=== PATIENT | male | born 1980 | race Caucasian/White ===

== ENCOUNTER 2018-03-16 08:20 | Emergency (ER) | payer MEDICAID, SELFPAY ==
[2018-03-16 08:24] VITALS: BP 142/95; PULSE 87; RESP 16; TEMP 37; O2SAT 96
--- NOTE | 2018-03-16 08:55 | ED.GENADUL_ITS ---
Discharge Plan Disposition Patient Disposition: HOME Condition: Stable Discharge Details Chief Complaint: DentalOral Clinical Impression: Dental infection Primary Care Provider: Unknown,Unknown ED Provider: Helga Gorman Home Meds and New Rx's Prescriptions: New penicillin V potassium 500 mg tablet 500 mg PO QID Qty: 27 RF: 0 Discharge Instructions Instructions: Penicillin V (By mouth), Dental Abscess (ED) Additional Instructions: Please return immediately to the emergency department if you develop any new or worsening symptoms or if you become otherwise concerned. It is extremely important that you make an appointment to be seen by your dentist within the next week in follow-up for this visit. Discharge Data Discharge Date/Time-TO BE ENTERED AT DEPARTURE: 03/16/18 09:29 Medical Decision Making Luciano Ibarra is a 38 y/o man without major medical problems but with chronic poor dentition who presented to the emergency department with left lower tooth pain for a few days. On exam Pt is very well and non-toxic appearing. Poor dentition throughout. Apparent early dental infection of left lower premolar, no abscess. Exam/hx not c/w abscess, ludwigs or other deep space infection, sepsis. Plan for PO abx. Lengthy discussion with Pt re: RTED precautions and importance of outpt f/u with dentist and PCP. He is amenable to the plan. HPI General Mode of arrival: ambulatory . Date/Time Provider Initiated Documentation: 03/16/18 08:54 . Limitations to Documentation: no limitations . Information obtained by: patient, RN notes reviewed and old records reviewed . HPI Narrative: Luciano Ibarra is a 38 y/o man without h/o major medical problems presenting to the emergency department with tooth pain. Pt reports that he developed in a left lower incisor several days ago. Pt reports that he has an appointment to be seen by a dentist in [place] in two days. He reports that he has had similar pain in the same area in the past 2/2 broken teeth and poor dentition. No new trauma or other inciting event. He states that he feels otherwise well and in his usual state of health. Denies other pain, fevers, cough, SOB, trouble swallowing, n/v/d. Related Data Home Medications Medication Instructions Recorded Confirmed penicillin V potassium 500 mg PO QID #27 tab 03/16/18 Previous Rx's Medication Instructions Recorded penicillin V potassium 500 mg PO QID #27 tab 03/16/18 Allergies Allergy/AdvReac Type Severity Reaction Status Date / Time No Known Allergies Allergy Unverified 03/16/18 08:28 General Stated Complaint: DentalOral EVGENY: 4 Review of Systems Review of Systems Constitutional: denies fevers Eyes: denies eye pain ENT: denies facial pain, sore throat, reports dental pain Cardiovascular: denies chest pain, edema Respiratory: denies SOB, cough GI: denies abdominal pain, vomiting, diarrhea : denies flank pain MSK: denies back pain, neck pain, arthralgias, myalgias Skin: denies rash Neuro: denies headaches, lightheadedness [facility] Social History Smoking/Tobacco Use Status: Current every day Exam Narrative Exam Narrative: Constitutional: well and [id number], pleasant, conversing normally HENT: head atraumatic, normocephalic normal inspection, mucous membranes moist. Poor dentition throughout. Left lower premolar broken, surrounding gingiva mildly erythematous and TTP, no fluctuance. No other intraoral lesions. Handling secretions without issue. No mandibular or maxillary TTP. No trismus Eyes: conjunctiva normal, sclera normal, pupils 3mm b/l Neck: no stridor, normal ROM, trachea midline. No LAD. Chest: normal inspection Resp: normal work of breathing, LCTAB Cardio: normal rate, normal rhythm, no murmur appreciated Back: normal inspection, no rash Skin: warm, dry, normal color, no generalized rash Neuro: alert, not altered, grossly non-focal, normal tone Psych: normal mood, normal affect, normal behavior Course Vital Signs Temperature 37.0 C 03/16/18 08:24 Pulse 87 03/16/18 08:24 Respiratory Rate 16 03/16/18 08:24 Blood Pressure 142/95 H 03/16/18 08:24 Pulse Oximetry 96 03/16/18 08:24 Temperature 37.0 C 03/16/18 08:24 Temperature Source Skin 03/16/18 08:24 Pulse 87 03/16/18 08:24 Respiratory Rate 16 03/16/18 08:24 Respiratory Effort 03/16/18 08:27 Blood Pressure 142/95 H 03/16/18 08:24 Blood Pressure Position Sitting 03/16/18 08:24 Pulse Oximetry 96 03/16/18 08:24 Oxygen Delivery Method Room Air 03/16/18 08:24 Oxygen Flow Rate 0 03/16/18 08:24 Pain Level 8 03/16/18 08:24
[2018-03-16] MEDS: Penicillin V POTASSIUM 500 MG TAB PO (09:29)
== END 2018-03-16 09:29 | disposition home or self-care (01) ==
PROVIDERS: Emergency Provider Student in an Organized Health Care Education/Training Program
DX: K04.7 Periapical abscess without sinus (principal)
CPT/HCPCS: 99283

== ENCOUNTER 2019-01-05 17:21 | Outpatient (REF) | payer MEDICAID, SELFPAY ==
[2019-01-05 21:09] LABS: Abs Immature Grans 0.03 k/cumm (0.0-0.09); Absolute Basophil Count 0.04 k/cumm (0.0-0.2); Absolute Eosinophil Count 0.18 k/cumm (0.0-0.7); Absolute Lymphocyte Count 2.79 k/cumm (1.2-3.4); Absolute Monocyte Count 0.81 k/cumm (0.11-0.7); Absolute Neutrophil Count 5.36 k/cumm (1.2-6.7); Basophils % 0.4; HCT 43.6 % (40.0-50.0); HGB 14.4 g/dL (13.5-17.5); Immature Grans % 0.3; Lymphocytes % 30.3; Mean Corpuscular Hemoglobin 30.3 pg (27.0-33.0); Mean Corpuscular Volume 91.8 fL (80-95); Monocytes % 8.8; Neutrophils % 58.2; Platelet Count 247 x1000/uL (130-400); RBC 4.75 m/cumm (4.50-6.00); RBC Distribution Width 12.8 % (11.8-14.1); White Blood Cell Count 9.21 k/cumm (4.4-10.8)
[2019-01-05 22:19] LABS: ALT 46 U/L (12-78); AST 39 U/L (15-37); Albumin 3.6 g/dL (3.4-5.0); Alkaline Phosphatase 68 U/L (46-116); Anion Gap 9.7 mmol/L (3-11); BUN 17 mg/dL (7-18); Bilirubin, Total 0.3 mg/dL (0.2-1.0); CO2 29.3 mmol/L (21.0-32.0); CREATININE 0.84 mg/dL (0.70-1.30); Calcium 8.4 mg/dL (8.5-10.1); Calculated LDL 124 mg/dL; Chloride 103 mmol/L (98-107); Cholesterol 172 mg/dL (50-200); Glucose 91 mg/dL (70-100); HDL Cholesterol 35 mg/dL (40-60); Potassium 3.9 mmol/L (3.5-5.1); Sodium 142 mmol/L (136-145); TSH (W/Ref FT4) 0.33 uIU/mL (0.36-3.74); Total Protein 7.4 g/dL (6.4-8.2); Triglyceride 67 mg/dL (30-150)
[2019-01-05 22:41] LABS: FREE T4 1.43 ng/dL (0.76-1.46)
== END 2019-01-05 17:41 ==
LOC: NCHCN 17:21
PROVIDERS: PCP Specialist/Technologist Athletic Trainer; Visit Provider Specialist/Technologist Athletic Trainer
DX: R63.4 Abnormal weight loss (principal); R21 Rash and other nonspecific skin eruption; Z00.00 Encounter for general adult medical examination without abnormal findings
CPT/HCPCS: 80053; 80061; 83721; 84439; 84443; 85025

== ENCOUNTER 2020-04-29 09:20 | Emergency (ER) | payer MEDICAID, SELFPAY ==
--- NOTE | 2020-04-29 09:21 | ED.GENADUL_ITS ---
Discharge Plan Disposition Patient Disposition: HOME Condition: Stable Discharge Details Clinical Impression: Cellulitis of neck Primary Care Provider: Regina Bowman ED Provider: Flory Felipe Home Meds and New Rx's Prescriptions: New clindamycin HCl 150 mg capsule 450 mg PO TID 7 Days Qty: 63 RF: 0 Continued penicillin V potassium 500 mg tablet 500 mg PO QID Qty: 27 RF: 0 Discharge Instructions Instructions: Cellulitis (ED) Additional Instructions: Keep wound clean and dry. Cover wound with bandage if risk of contamination. Otherwise you can keep the wound open to air if resting at home to allow edges to dry and heal. Apply warm compresses to the affected area several times daily for 20 minutes at a time. Take the antibiotics until finished. Alternate tylenol and motrin as needed and directed for pain. Follow-up with your primary care doctor in 1 week. Return to the emergency department with any worsening or new concerning symptoms such as fever, increased pain, redness or swelling. Discharge Data Discharge Date/Time-TO BE ENTERED AT DEPARTURE: 04/29/20 09:59 Discharge Physician: Flory Felipe Medical Decision Making 40-year-old male presents with painful lump to the back of his neck for the past 5 days. Began draining blood recently but denies any fever, headache or dizziness. There is an approximate 5 x 5 cm area of induration with central opening with crust noted in posterior neck. There is no area of fluctuance consistent with abscess. Do not see an indication for I&D or labs or imaging at this time. Normal ENT exam. He appears nontoxic. Advised patient to use warm compresses. Will treat with oral antibiotics at this time. Advised to follow up with the primary care doctor for re-evaluation. Usual and customary return precautions given prior to discharge. HPI General Mode of arrival: ambulatory . Date/Time Provider Initiated Documentation: 04/29/20 09:20 . Limitations to Documentation: no limitations . Information obtained by: patient . HPI Narrative: Patient is a 40-year-old male who presents with a painful lump on the back of his neck for the past 5 days. Patient states at some point it started draining blood but states his symptoms have not improved. He denies any known bites, injury, new soaps, shampoos, detergents or lotions. He denies any headache, dizziness, fever, recent travel, recent surgery, recent tick bite or known sick contacts or exposure to coronavirus. Related Data Home Medications Medication Instructions Recorded Confirmed penicillin V potassium 500 mg PO QID #27 tab 03/16/18 clindamycin HCl 450 mg PO TID 7 Days #63 cap 04/29/20 Previous Rx's Medication Instructions Recorded penicillin V potassium 500 mg PO QID #27 tab 03/16/18 clindamycin HCl 450 mg PO TID 7 Days #63 cap 04/29/20 Allergies Allergy/AdvReac Type Severity Reaction Status Date / Time No Known Allergies Allergy Unverified 04/29/20 09:30 General EVGENY: 4 Review of Systems All systems reviewed & are unremarkable except as noted in HPI and below Constitutional Constitutional: Reports as per HPI, Denies chills and Denies fever(s) Eyes Eyes: Denies blurry vision ENT Ears, Nose, Mouth, and Throat: Denies dizziness, Denies sore throat and Denies throat swelling Cardiovascular Cardiovascular: Denies chest pain and Denies dyspnea Respiratory Respiratory: Denies cough and Denies dyspnea Gastrointestinal Gastrointestinal: Denies abdominal pain, Denies diarrhea and Denies vomiting Genitourinary Genitourinary: Denies hematuria and Denies dysuria Musculoskeletal Musculoskeletal: Denies back pain and Denies numbness Integumentary/Breasts Skin/Breast: Reports lesions and Denies rash Neurologic Neurologic: Denies dizziness, Denies localized weakness and Denies numbness Allergic/Immunologic Allergic/Immunologic: Denies throat swelling [facility] Medical History (Updated 04/29/20 @ 09:49 by Flory Felipe DO) No significant past medical history Surgical History (Updated 04/29/20 @ 09:46 by Flory Felipe DO) History of surgery on extremity Social History Smoking/Tobacco Use Status: Current every day Tobacco Type: cigarettes Smoking risk assessment performed?: Yes Alcohol Intake: never Drug use: Never Do you feel safe at home: Yes Do you feel safe in your relationship?: Yes Exam Const General: cooperative, healthy appearing and no acute distress HENMT Head: normal to inspection Ears: hearing grossly normal bilaterally, external ears normal and TM's normal bilaterally General nose exam: external nose normal Face and sinus: normal facial exam Mouth: oral mucosae normal Throat: posterior oropharynx normal Eyes General: appearance normal, both eyes and all related structures Neck Neck: no lymphadenopathy, trachea midline, supple, no anterior neck swelling, No submandibular swelling and other (some pain with rotation and extension of neck) Neck images: 1. Induration, erythema, and tenderness to palpation. No fluctuance, crepitus. 2. Maroon colored flat crust in center. No active drainage or bleeding. Resp Effort & Inspection: normal respiratory effort and able to speak in complete sentences Cardio Rate: regular rate Neuro General: patient alert, patient awake and patient oriented x3 Motor: muscle tone normal throughout Extrem General: normal to inspection and full ROM Psych Appearance: grossly normal Affect: normal affect
[2020-04-29 09:22] VITALS: BP 113/78; PULSE 87; RESP 15; TEMP 37; O2SAT 97
== END 2020-04-29 09:59 | disposition home or self-care (01) ==
PROVIDERS: Emergency Provider Physician Assistant; PCP Physician Assistant Medical
DX: L03.221 Cellulitis of neck (principal)
CPT/HCPCS: 99283

== ENCOUNTER 2021-04-06 09:03 | Inpatient (IN) | payer MEDICAID, SELFPAY ==
[2021-04-06] VITALS (47 sets, daily range): BP systolic 118–155; BP diastolic 55–128; PULSE 78–103; RESP 16–57; TEMP 36.5–38; O2SAT 94–100
--- NOTE | 2021-04-06 09:15 | DI.RAD_ITS ---
Exam(s) XR FOOT LT COMPLETE EXAM: XR FOOT LT COMPLETE CLINICAL HISTORY: midfoot pain, recent injury, r/o fx. TECHNIQUE: 2D digital imaging was performed. COMPARISON: No exams were available for comparison FINDINGS: There is no evidence of acute fracture or diastasis of the Nemo fantasma joint. There is mild soft tissu e swelling dorsally but no fracture evident. No radiopaque foreign body. No osseous lesions nor ero sions. Mild degenerative changes are noted in the metatarsophalangeal joint of the great toe. IMPRESSION: As above. No acute findings. DATA REPOSITORY: RADIATION DOSE DELIVERED:
--- NOTE | 2021-04-06 09:15 | DI.CT_ITS ---
Exam(s) CT CHEST W EXAM: CT CHEST W CLINICAL HISTORY: IVDU chest wall abscess. May track to lung. TECHNIQUE: Multi planar reconstructions were performed. CONTRAST MATERIAL: Omnipaque 350; 75 cc COMPARISON: No exams were available for comparison FINDINGS: CHEST: LUNGS: There are mild subpleural increased markings in the superior segment of the right lower lobe. No large infiltrate. No pleural effusions. There are no ominous pulmonary nodules. No significant focal findings in the trachea and mainstem bronchi. No bronchiectasis. MEDIASTINUM: No obvious adenopathy. Visualized thyroid unremarkable. CARDIAC: Heart size is normal. There is no pericardial effusion.Caliber of the thoracic aorta is wit hin normal limits. VISUALIZED UPPER ABDOMEN:There are no significant adrenal masses. OSSEOUS: No significant osseous lesions. OTHER: There is skin thickening and subcutaneous streaking over the anterior left chest wall extendin g from the skin down to the medial half of the left pectoralis major muscle. There is no obvious dis tinct formed abscess, however, there is subtle density difference in the most medial aspect of the le ft pectoralis muscle which may reflect muscular involvement. Findings appear to be confined to the s ubcutaneous tissues and muscular layer. There does not appear to be involvement of the subjacent reema rnum and ribs. No intrathoracic abnormality seen at this level. IMPRESSION: 1. There is an inflammatory process within the medial aspect of the anterior chest wall superficial t o and possibly also involving the medial aspect of the left pectoralis muscle. There is no involveme nt of the intrathoracic cavity. If clinically indicated follow-up MRI can be performed to determine the extent of involvement of the pectoralis muscle. 2. Mild subpleural increased markings are incidentally noted in the superior segment of the right low er lobe. No other pulmonary findings and no pleural effusions. RADIATION DOSE DELIVERED: 735.71mGy.cm Total DLP DATA REPOSITORY: All CT scans at this facility are submitted to the National Radiology Data Registry (NRDR) Dose Index Registry (DIR) with the [employer] (A[employer]). RADIATION OPTIMIZATION: All CT scans at this facility use at least one of these dose optimization te chniques: automated exposure control; mA and/or kV adjustment per patient size (includes targeted exa ms where dose is matched to clinical indication); or iterative reconstruction.
--- NOTE | 2021-04-06 09:15 | RT.EKG_ITS ---
APPROVED REPORT Exam: Resting ECG Reason for Exam: chest pain Patient Location: E HR:85 bpm ECG Measurements Heart Rate 85 AXIS MD 170 P 49 QRSd 89 QRS 64 QT 363 T 18 QTc 434 Conclusion Sinus rhythm...normal P axis, V-rate 60- 99 Physician: no stemi. Q wave in III, no prior for comparison
--- NOTE | 2021-04-06 09:23 | ED.GENADUL_ITS ---
Discharge Plan Disposition Patient Disposition: [facility] INPATIENT Condition: Stable Discharge Details Chief Complaint: Cellulitis Clinical Impression: Abscess or cellulitis of chest wall, IVDU (intravenous drug user) Primary Care Provider: Regina Bowman ED Provider: Romel Aparicio Home Meds and New Rx's Prescriptions: No Action No Known Home Meds RF: 0 Medical Decision Making This is a 41-year-old male with a past medical history of IV drug use with heroin/fentanyl, no other significant past medical history who presents today for evaluation of left nodule on chest wall, and left foot pain. Patient states that 1 week ago his dog was hit by a car, carried the dog out to the field, and buried it. Shortly after that his left foot began hurting in the midfoot region. Worse with movement and weightbearing. Improved by rest and hard soled shoes. Pain has been consistent, and neither worsening nor improving. However over the last 3 days the patient has noted small amount of pain in the left chest by the sternum, which is worsened with time. Today it was notably unbearable and had developed redness and severe tenderness. He admits to pain with movement palpation and any breathing, focally to that area. He admits to chills but denies any fever. He admits to fatigue. He denies any hemoptysis but does admit to an otherwise nonproductive cough. Immunizations are up-to-date. The patient has not had his Covid vaccine. He denies any history of HIV. No other complaints at this time. No other modifying factors. He denies any injections into his feet, he normally just shoots up into his arms. Primarily his right arm. Physical exam demonstrates small red swollen area on the left chest around ribs 4/5 at the costochondral junction. Bedside ultrasound shows evidence of a small fluid collection beneath the surface, it seems to extend down past the pectoralis muscle and past the ribs. I am unable to visualize the past there. Concern is for abscess potentially to the lungs. He does admit to a cough. With the patient's history of IV drug use is certainly increases my concern for infectious etiology. Additionally the foot shows no signs of redness infection gout or cellulitis. Concern for mild musculoskeletal injury. We will get an x- ray to rule out fracture. Will get blood cultures, check HIV status, rehydrate, manage patient's pain, get a CT scan of the chest to evaluate for tracking of the abscess, monitor closely and reassess. We will start clindamycin. 1:01 PM Laboratory work-up has returned, patient white count is 23.4, notable left shift. Lactate is normal though. Electrolytes are normal aside for potassium which is slightly low at 3.1, magnesium is normal. Troponin negative. EKG benign. Covid test negative, flu test negative. X-ray of the foot shows no acute process. He has no tenderness in the calf. No clinical evidence of significant DVT. No ultrasound is available currently, and he may benefit from getting this tomorrow when ultrasound has returned. There is concern for potential septic emboli. CT scan of the chest shows no evidence of fluid collection or abscess, however I did go reevaluate again with the ultrasound and then still able to see a fluid tract.Do suspect need for admission for continued IV antibiotics. Patient has had notable pain while here, and has gone through 4 mg of morphine, 4 mg of Dilaudid, and Toradol and Ofirmev. Did consult surgery and had Dr. Noyola evaluate the patient for concern for abscess, and she is he was able to visualize the fluid and the tract in the chest. She is going to attempt an I&D of the area for collection. With the return of the patient's labs, his notable white count, I do feel that he would benefit from continued IV antibiotics. We will add hepatitis and procalcitonin. Discussed the case with the hospitalist Dr. Polanco, he agrees with the assessment and plan. I will place holding orders on his behalf. I have extensively reviewed the treatment plan with the patient. I have addressed all patient concerns at this time. I have also discussed the plan with the admitting physician and they agree with the current assessment and plan and have agreed to assume responsibility for the patient. All parties demonstrate verbal understanding and agreement with our assessment and plan at this time. The documentation in this chart was dictated using [employer] dictation software. Please excuse any dictation errors. FINDINGS: Bones/joints: Normal. No fracture or dislocation. No arthropathic change. Soft tissues: Normal. IMPRESSION: No acute findings. Thank you for allowing us to participate in the care of your patient. Dictated and Authenticated by: Samson Oden MD 04/06/2021 11:09 AM Eastern Time ([place] & [place]) FINDINGS: Thyroid: Normal. No significant nodule or enlargement. Trachea: Normal. Lungs: Unremarkable. No consolidation. No nodule or mass. Pleural spaces: Unremarkable. No pneumothorax. No pleural effusion or thickening. Heart: No cardiomegaly. No pericardial effusion. Coronary arteries: No significant calcification. Esophagus: No esophageal mass or wall thickening. No hiatal hernia. Mediastinal space: Normal. No mass or adenopathy. Pulmonary arteries: Nonenlarged. No filling defects demonstrated. Aorta: Unremarkable. No aortic aneurysm or significant atherosclerosis. Lymph nodes: No enlarged mediastinal or axillary lymph nodes. Bones/joints: See Soft tissues finding. Soft tissues: There is a stated history of chest wall abscess. There is some soft tissue stranding within the subcutaneous fat superficial to the left pectoralis muscle medially and there is some associated skin thickening. No fluid collection is seen to indicate an abscess however. There is some subtle thickening of the medial pectoralis muscle which could reflect myositis. The process is confined to the chest wall superficial to the ribs with no involvement of the intrathoracic space. Other findings: Visualized upper abdomen is unremarkable. IMPRESSION: Inflammatory process within the medial anterior chest wall superficial to and possibly involving the left pectoralis muscle. No intrathoracic abnormality. Thank you for allowing us to participate in the care of your patient. Dictated and Authenticated by: Samson Oden MD 04/06/2021 11:08 AM [facility] ( [facility] [employer]) HPI General Date/Time Provider Initiated Documentation: 04/06/21 09:03 . HPI Narrative: This is a 41-year-old male with a past medical history of IV drug use with heroin/fentanyl, no other significant past medical history who presents today for evaluation of left nodule on chest wall, and left foot pain. Patient states that 1 week ago his dog was hit by a car, carried the dog out to the field, and buried it. Shortly after that his left foot began hurting in the midfoot region. Worse with movement and weightbearing. Improved by rest and hard soled shoes. Pain has been consistent, and neither worsening nor improving. However over the last 3 days the patient has noted small amount of pain in the left chest by the sternum, which is worsened with time. Today it was notably unbearable and had developed redness and severe tenderness. He admits to pain with movement palpation and any breathing, focally to that area. He admits to chills but denies any fever. He admits to fatigue. He denies any hemoptysis but does admit to an otherwise nonproductive cough. Immunizations are up-to-date. The patient has not had his Covid vaccine. He denies any history of HIV. No other complaints at this time. No other modifying factors. He denies any injections into his feet, he normally just shoots up into his arms. Primarily his right arm. Related Data Home Medications Medication Instructions Recorded Confirmed Unknown [No Known Home Meds] 04/06/21 04/06/21 Allergies Allergy/AdvReac Type Severity Reaction Status Date / Time No Known Allergies Allergy Unverified 04/06/21 09:37 General EVGENY: 3 Review of Systems All systems reviewed & are unremarkable except as noted in HPI and below PFSH Medical History No significant past medical history Surgical History History of surgery on extremity Social History Smoking/Tobacco Use Status: Current every day Tobacco Type: cigarettes Smoking risk assessment performed?: Yes Alcohol Intake: never Drug use: Daily Substance use type: heroin Do you feel safe at home: Yes Do you feel safe in your relationship?: Yes Exam Narrative Exam Narrative: 1.Const: Well-nourished, Well-developed, appearing stated age 2.Eyes: PERRL, no conjunctival injection, and symmetrical lids. 3.ENT: Atraumatic external nose and ears. Moist MM. Neck: Symmetric, trachea midline, No thyromegaly. 4.CVS: +S1/S2, No murmurs or gallops. Peripheral pulses 2+ and equal in all extremities. Brisk capillary refill in all extremities. Palpation of the left anterior chest wall demonstrates a small area of redness at the costochondral junction around ribs four and five. Exquisitely tender. There is also mild swelling in that area. Bedside ultrasound shows evidence of a small fluid pocket noted deeper, roughly 1 to 2 cm down, it seems to track past the ribs and towards the lung. I am unable to visualize it after that. No crepitus. 5.RESP: Unlabored respiratory effort. Clear to auscultation bilaterally. No wheezes rales or rhonchi 6.GI: Soft, Nontender/Nondistended, No hepatosplenomegaly. No guarding or rebound. 7.MSK: Normocephalic/Atraumatic, Extremities w/o deformity. No cyanosis or clubbing, Normal movement of all extremities. Patient demonstrates good plantar dorsiflexion of the left foot, minimal tenderness at the midfoot region at the plantar aspect of the foot. No tenderness over the dorsal arch, no tenderness with movement of the toes or feet or heel otherwise. Pain is only present with weightbearing or pinpoint pressure on the arch of the foot. No redness, no crepitus, no signs of injection site from the foot. 8.Skin: Warm, Dry. Please see [facility]. 9.Neuro: histopathologist II-XII grossly intact. Sensation grossly intact, no focal neurologic deficits. 10.Psych: (AAO) x3. Appropriate mood and affect Course Lab/Test Results Lab/Test Results: 04/06/21 09:17 Blood Blood Culture - Pending 04/06/21 09:17 Blood Blood Culture - Pending
[2021-04-06] MEDS: Normal Saline 1,000 ML 1000 ML IV ×2 (09:30→10:50)
[2021-04-06 09:41] LABS: Lactate 1.3 mmol/L (0.6-1.4)
[2021-04-06 09:42] LABS: Abs Immature Grans 0.15 10^3/uL (0.0-0.06); Absolute Basophil Count 0.05 10^3/uL (0.0-0.2); Absolute Lymphocyte Count 2.37 10^3/uL (1.2-3.4); Absolute Monocyte Count 1.38 10^3/uL (0.1-0.8); Basophils % 0.2; Eosinophils % 0.2; HCT 40.4 % (40.0-50.0); HGB 13.3 g/dL (13.5-17.5); Immature Grans % 0.6; Lymphocytes % 10.1; MCH 29.2 pg (27.0-33.0); MCHC 32.9 % (32.0-36.0); MCV 88.8 fL (80-95); MPV 9.4 fL (8.0-11.0); Monocytes % 5.9; Nucleated RBC 0 %; Platelet Count 291 10^3/uL (130-400); RBC 4.55 10^6/uL (4.36-5.78); RDW 12.1 % (11.8-14.1); RDW-SD 39.4 fL; WBC 23.44 10^3/uL (4.4-10.8)
[2021-04-06 09:44] LABS: Absolute Eosinophil Count 0.05 10^3/uL (0.0-0.7); Absolute Neutrophil Count 19.46 10^3/uL (1.2-6.7)
[2021-04-06] MEDS: CLINDAMYCIN 600 MG/50 ML BAG 100 MG IVPB (09:46)
[2021-04-06] MEDS: Ketorolac 15 MG/ML VIAL IVP (09:48)
[2021-04-06] MEDS: HYDROmorphone 2 MG/ML VIAL 1 MG IVP ×4 (09:54→13:10)
[2021-04-06 10:02] LABS: ALT 25 U/L (16-63); AST 13 U/L (15-37); Albumin 3.3 g/dL (3.4-5.0); Alkaline Phosphatase 62 U/L (46-116); Anion Gap 14.2 mmol/L (3-11); BUN 9 mg/dL (7-18); Bilirubin, Total 0.6 mg/dL (0.2-1.0); CO2 23.8 mmol/L (21.0-32.0); CREATININE 0.9 mg/dL (0.70-1.30); Calcium 9.2 mg/dL (8.5-10.1); Chloride 101 mmol/L (98-107); Glucose 133 mg/dL (74-106); Potassium 3.1 mmol/L (3.5-5.1); Sodium 139 mmol/L (136-145); Total Protein 8.7 g/dL (6.4-8.2)
[2021-04-06 10:07] LABS: Troponin I < 0.05 ng/mL (<0.06)
[2021-04-06] MEDS: Omnipaque 350 MG/ML 100 ML BTL IV (10:25)
[2021-04-06] MEDS: Normal Saline - Diluent 50 ML VIAL IV (10:27)
[2021-04-06 10:29] LABS: Source Nasal/Nares
[2021-04-06] MEDS: Potassium Chloride 20 MEQ TABCR 40 MEQ PO (10:31)
[2021-04-06] MEDS: POTASSIUM CHLORIDE 20 MEQ/100 ML BAG 50 MEQ IVPB (10:48)
--- NOTE | 2021-04-06 11:09 | DI.VRAD_ITS ---
PROCEDURE INFORMATION: Exam: CT Chest With Contrast; Diagnostic Exam date and time: 04/06/2021 9:19 AM Age: 41 years old Clinical indication: Other: Ivdu chest wall abscess. May track to lung TECHNIQUE: Imaging protocol: Diagnostic computed tomography of the chest with contrast. 3D rendering (Not supervised by radiologist): MIP and/or 3D reconstructed images were created by the technologist. Radiation optimization: All CT scans at this facility use at least one of these dose optimization techniques: automated exposure control; mA and/or kV adjustment per patient size (includes targeted exams where dose is matched to clinical indication); or iterative reconstruction. Contrast material: OMNIPAQUE 350; Contrast volume: 70 ml; Contrast route: INTRAVENOUS (IV); COMPARISON: CT RENAL COLIC WO CONTRAST 08/12/2015 02:20 FINDINGS: Thyroid: Normal. No significant nodule or enlargement. Trachea: Normal. Lungs: Unremarkable. No consolidation. No nodule or mass. Pleural spaces: Unremarkable. No pneumothorax. No pleural effusion or thickening. Heart: No cardiomegaly. No pericardial effusion. Coronary arteries: No significant calcification. Esophagus: No esophageal mass or wall thickening. No hiatal hernia. Mediastinal space: Normal. No mass or adenopathy. Pulmonary arteries: Nonenlarged. No filling defects demonstrated. Aorta: Unremarkable. No aortic aneurysm or significant atherosclerosis. Lymph nodes: No enlarged mediastinal or axillary lymph nodes. Bones/joints: See Soft tissues finding. Soft tissues: There is a stated history of chest wall abscess. There is some soft tissue stranding within the subcutaneous fat superficial to the left pectoralis muscle medially and there is some associated skin thickening. No fluid collection is seen to indicate an abscess however. There is some subtle thickening of the medial pectoralis muscle which could reflect myositis. The process is confined to the chest wall superficial to the ribs with no involvement of the intrathoracic space. Other findings: Visualized upper abdomen is unremarkable. IMPRESSION: Inflammatory process within the medial anterior chest wall superficial to and possibly involving the left pectoralis muscle. No intrathoracic abnormality. Dictated and Authenticated by: Samson Oden MD. Ordering:TALIA Urena MD
--- NOTE | 2021-04-06 11:10 | DI.VRAD_ITS ---
PROCEDURE INFORMATION: Exam: XR Left Foot Exam date and time: 04/06/2021 9:23 AM Age: 41 years old Clinical indication: Other: Midfoot pain, recent injury, R/O FX TECHNIQUE: Imaging protocol: XR Left foot. Views: 3 or more views. COMPARISON: No relevant prior studies available. FINDINGS: Bones/joints: Normal. No fracture or dislocation. No arthropathic change. Soft tissues: Normal. IMPRESSION: No acute findings. Dictated and Authenticated by: Samson Oden MD. Ordering:TALIA Urena MD
[2021-04-06 11:24] LABS: COVID-19 PCR Negative (Negative)
[2021-04-06] MEDS: ACETAMINOPHEN 1,000 MG/100 ML BTL 400 MG IVPB (12:41)
[2021-04-06] MEDS: LORazepam 2 MG/ML VIAL (13:18)
[2021-04-06] MEDS: PIPERACILLIN/TAZO 3.375 GM in Normal Saline 50 ML IVPB (13:35)
--- NOTE | 2021-04-06 13:39 | SCONE_ITS ---
Date of service: 04/06/21 Time of Service: 13:40 Assessment and Plan Assessment and plan (1) Heroin abuse: Status: Acute (2) Abscess or cellulitis of chest wall: Status: Acute Assessment and plan: -fluid sent for culture -vanc/zosyn -echo -HIV/HepC pd. supportive care r/o septic emboli or endocarditis. No other lg fluid collections noted on US 90 mins spent w pt in ED (3) IVDU (intravenous drug user): Status: Acute History of Present Illness Narrative: IVKONRAD. says he only uses right forearm for injecting. last time he injected was two days ago. He told the ED Dr he injected this am. + N/V. Hasn't ate in 2 days b/c he hasn't felt well. The pain started after he did some digging on . Pt denies injecting into the chest wall or his leg. He has pain over carotid/L foot and left chest wall. There are no signs of injection [place] on any veins. He has mult scabs on right arm. US: small 1cm abscess w/ tracking. needle asp- .25cc fluid sent for culture. no other discrete collections. otherwise tissue edema. also plantar/dorsum left foot. very poor dentition. occ smokes rack. no meth. nkda no meds doesn't drink ETOH doesn't smoke US 2x1cm irregular abscess cavity that appears to track down to the pectorial fascia. Consults Consult date: 04/06/21 [facility] Medical History (Updated 04/06/21 @ 17:24 by Lei Benitez) Heroin abuse No significant past medical history Surgical History (Updated 04/06/21 @ 17:24 by Lei Benitez) History of surgery on extremity right leg surgery; age 10 yr old Family History (Updated 04/06/21 @ 17:26 by Lei Benitez) Sister [place] chorea Mother [place] chorea Social History (Updated 04/06/21 @ 17:26 by Lei Benitez) Smoking/Tobacco Use Status: Current every day Tobacco Type: cigarettes Smoking packs per day: 1 Smoking cigarettes per day: 20.0 Smoking risk assessment performed?: Yes Alcohol Intake: never Drug use: Daily Substance use type: heroin Do you feel safe at home: Yes Do you feel safe in your relationship?: Yes Exam Const General: cooperative, healthy appearing, comfortable, no acute distress, well developed and well groomed Nutritional Appearance: average body habitus and well nourished Orientation: alert, awake and oriented x3 [facility] Head: normal to inspection, normocephalic and atraumatic Ears: hearing grossly normal bilaterally and external ears normal General nose exam: external nose normal Face and sinus: normal facial exam and sinuses nontender Mouth: oral mucosae normal, lip normal, tongue normal and moist mucous membranes Teeth and gingiva: abnormal tooth or associated gingiva and poor dentition Other: No mouth pain Eyes General: appearance normal, both eyes and all related structures Conjunctivae: conjunctivae normal Sclera: sclerae normal Pupils: PERRL Neck Neck: normal visual inspection and full ROM Chest Chest: abnormal inspection of the chest Other: He has a 1 x 1 cm area of redness on the left anterior chest wall. There are some mild swelling and edema. There is no crepitus. Bedside ultrasound was performed that did show irregular shaped fluid collection. Fluid was aspirated from this and sent for culture. It does show tracking. A CT of the chest was obtained and reviewed. There does not appear to be any thoracic fluid collections the patient has exquisite pain. But I think subjective exam is not reliable in this patient. Resp Effort & Inspection: normal respiratory effort, able to speak in complete sentences, no cough, no nasal flaring, not tachypneic and no use of accessory muscles Auscultation: clear to auscultation bilaterally, no rales, no rhonchi and no wh eezes Cardio Jugular venous pressure: no JVD Rate: regular rate Rhythm: regular rhythm GI Inspection: normal to inspection, no edema and non-distended Palpation: soft, no masses, nontender and No ascites Auscultation: normal bowel sounds Skin General skin exam: no rashes or lesions noted Trauma: no lacerations or abrasions Neuro General: patient alert, patient oriented x3, oriented, gait normal, moves all extremities, no focal motor deficits and CN's II-XI intact bilaterally Cognition: normal cognition Speech: speech normal Gait: normal gait Motor: muscle tone normal throughout Extrem General: normal to inspection, full ROM and no clubbing, cyanosis or edema Other: pulses are all intact 2/2 upper/lower. there are no signs of redness/hardness over the veins/arteries. No signs of any thrombophlebitis. Psych Appearance: grossly normal and well kempt Mental Status: mental status grossly normal Speech and Movement: speech and movement normal Affect: normal affect Results Last Vital Signs Temp 37.2 C 04/06/21 11:58 Pulse 83 04/06/21 11:58 Resp 21 04/06/21 11:58 BP 155/113 H 04/06/21 11:58 Pulse Ox 100 04/06/21 11:58 Labs Result diagrams: 04/06/21 09:30 04/06/21 09:30 Labs: Laboratory Results - last 24 hr 04/06/21 04/06/21 04/06/21 09:30 09:30 09:30 WBC 23.44 H RBC 4.55 Hgb 13.3 L Hct 40.4 MCV 88.8 MCH 29.2 MCHC 32.9 RDW 12.1 Plt Count 291 MPV 9.4 Immature Gran % 0.6 Neutrophils % 83.0 Lymphocytes % 10.1 Monocytes % 5.9 Eosinophils % 0.2 Basophils % 0.2 Nucleated RBC % 0 Absolute Neutrophils 19.46 H Absolute Lymphocytes 2.37 Absolute Monocytes 1.38 H Absolute Eosinophils 0.05 Absolute Basophils 0.05 VBG Lactate 1.3 Sodium 139 Potassium 3.1 L Chloride 101 Carbon Dioxide 23.8 Anion Gap 14.2 H BUN 9 Creatinine 0.9 Estimated GFR/1.73 m2 >= 60.00 Glucose 133 H Calcium 9.2 Magnesium Total Bilirubin 0.6 AST 13 L ALT 25 Alkaline Phosphatase 62 Troponin I Total Protein 8.7 H Albumin 3.3 L COVID-19 Source SARS-CoV-2 (PCR) 04/06/21 04/06/21 04/06/21 09:30 09:30 10:15 WBC RBC Hgb Hct MCV MCH MCHC RDW Plt Count MPV Immature Gran % Neutrophils % Lymphocytes % Monocytes % Eosinophils % Basophils % Nucleated RBC % Absolute Neutrophils Absolute Lymphocytes Absolute Monocytes Absolute Eosinophils Absolute Basophils VBG Lactate Sodium Potassium Chloride Carbon Dioxide Anion Gap BUN Creatinine Estimated GFR/1.73 m2 Glucose Calcium Magnesium 2.0 Total Bilirubin AST ALT Alkaline Phosphatase Troponin I < 0.05 Total Protein Albumin COVID-19 Source Nasal/Nares SARS-CoV-2 (PCR) Negative
[2021-04-06 13:41] LABS: Creatine Kinase 74 U/L (39-308)
--- NOTE | 2021-04-06 13:52 | NUR.NOTE ---
Nursing Note: Beena [phone]
[2021-04-06] MEDS: Normal Saline 1,000 ML 125 ML IV (13:58)
[2021-04-06 14:05] LABS: Procalcitonin 0.1 ng/mL
[2021-04-06] MEDS: VANCOMYCIN/WATER (PEG) 2 GM/400 ML BAG IV (14:14)
--- NOTE | 2021-04-06 14:36 | ROE_ITS ---
Date of service: 04/06/21 Time of Service: 14:36 Operative Note Operative Note DATE OF PROCEDURE: 04/06/21 PRE-OP DIAGNOSIS: Ultrasound-guided aspiration of left chest wall abscess PROCEDURE: See above SURGEON: Radha Noyola ANESTHESIA TYPE: Local By Surgeon Refer to Anesthesia Record ESTIMATED BLOOD LOSS: 1 PATHOLOGY: other COMPLICATIONS: None Patient was transported to: no change Patient's condition: stable Procedure Description: Patient presented to the ED complaining of chills and pain in the left anterior chest wall. He has a history of IV drug abuse. He ve hemently states he did not inject into his chest wall. There is a lot of edema within the tissues and definitely has the appearance of cellulitis on ultrasound and on CT. On ultrasound there is probably a 1 x 1 cm fluid pocket it does appear to have a tracking sinus. But his chest cavity is clear on CT scan. To have a better way of directing antibiotic therapy, aspiration of the small abscess was done. Informed consent was obtained explaining risks and benefits of procedure including not limited to pain scarring reaction to the medications pneumothorax and others. Timeout was performed. Left chest is prepped and draped in usual sterile fashion using a ChloraPrep scrub solution. Ultrasound was utilized to locate the pocket. It is anesthetized with 5 cc of 1% lidocaine plain approximately 0.25 cc of purulent fluid is obtained this is sent for culture. Pressure is held. There is no bleeding noted. Compression dressing is applied. Patient tolerated the procedure well.
[2021-04-06] MEDS: Normal Saline Flush 10 ML SYR IVP ×2 (15:46→21:07)
[2021-04-06] MEDS: Enoxaparin 40 MG/0.4 ML SYR SC (15:46)
[2021-04-06] MEDS: Ketorolac 30 MG/ML VIAL IVP ×2 (15:47→22:01)
--- NOTE | 2021-04-06 16:20 | HPE_ITS ---
Date of service: 04/06/21 Time of Service: 16:20 Assessment and Plan Assessment and plan (1) Abscess or cellulitis of chest wall: Status: Acute Assessment and plan: s/p I&D performed in the ER by Dr. Noyola. await wound and blood cultures. continue broad spectrum antibiotics (Vancomycin and Zosyn) pending results of cultures; check echocardiogram in the morning to rule out endocarditis. (2) Heroin abuse: Status: Acute Assessment and plan: patient in significant pain out of proportion to the chest wall abscess. He has required a significant amount of dilaudid while in the ER. I have put him on toradol for his pain but also have incuded oral dilaudid. I am not going to treat w/ parenteral narcotics. Oral narcotic analgesic will last longer to control his pain. The toradol will help w/ infllammation. (3) IVDU (intravenous drug user): Status: Acute History of Present Illness History of Present Illness Chief Complaint: chest wall pain Narrative: 41 yr old heroin addict who regularly injects heroin in his right antecubital vein, developed redness, swelling and pain over his left anterior chest along the parasternal chest wall. Onset 3 days ago. Now associated w/ chills but no rigors. No cough or sputum production. He has had nausea w/out vomiting or abdominal pains. He has had poor oral intake over past couple days. He has multiple scabs over his arms and his legs. He admits to picking at his skin. He denies any injection of drugs into his left arm or his legs or feet. However he also complains of left foot pain in the mid sole. He denies shooting up in his feet or legs. On arrival to the ER his vital signs he was afebrile but later developed low grade fever of 38.0 at 14:19. BP and pulse and RR and oxygen saturation were all normal. Labs were significant for WBC of 23,000 w/ left shift, lactate normal at 1.3, procalcitonin 0.1, anion gap 14, potassium 3.1. Radiologic studies included CT of the chest and xray of his left foot. CT scan demonstrated the following: IMPRESSION: 1. There is an inflammatory process within the medial aspect of the anterior chest wall superficial to and possibly also involving the medial aspect of the left pectoralis muscle. There is no involvement of the intrathoracic cavity. If clinically indicated follow-up MRI can be performed to determine the extent of involvement of the pectoralis muscle. 2. Mild subpleural increased markings are incidentally noted in the superior segment of the right lower lobe. No other pulmonary findings and no pleural eff usions. Xray of his left foot demonstrated the following: FINDINGS: There is no evidence of acute fracture or diastasis of the Nemo fantasma joint. There is mild soft tissue swelling dorsally but no fracture evident. No radiopaque foreign body. No osseous lesions nor erosions. Mild degenerative c hanges are noted in the metatarsophalangeal joint of the great toe. IMPRESSION: As above. No acute findings. Patient was treated in the ER w/ blood cultures, and was begun on saline bolus x 1 liter and was given clindamycin and after consultation w/ hospitalist service was given Vancomycin and Zosyn. He required frequent iv dilaudid and morphine for his pain. Dr. Noyola from surgical service was consulted and she needle aspirated 0.25 mL pus from a 1 cm abscess of his left upper anterior medial chest wall. Wound culture was sent off. The patient is admitted for parenteral antibiotics for anterior chest wall abscess and to rule out bacteremia and endocarditis. Review of Systems All systems reviewed & are unremarkable except as noted in HPI and below PFSH Medical History (Updated 04/06/21 @ 17:24 by Lei Benitez) Heroin abuse No significant past medical history Surgical History (Updated 04/06/21 @ 17:24 by Lei Benitez) History of surgery on extremity right leg surgery; age 10 yr old Family History (Updated 04/06/21 @ 17:26 by Lei Benitez) Sister [place] chorea Mother Douglas chorea Social History (Updated 04/06/21 @ 17:26 by Lei Benitez) Smoking/Tobacco Use Status: Current every day Tobacco Type: cigarettes Smoking packs per day: 1 Smoking cigarettes per day: 20.0 Smoking risk assessment performed?: Yes Alcohol Intake: never Drug use: Daily Substance use type: heroin Do you feel safe at home: Yes Do you feel safe in your relationship?: Yes Meds Allergies and Home Medications Allergies Allergy/AdvReac Type Severity Reaction Status Date / Time No Known Allergies Allergy Unverified 04/06/21 09:37 Home Medications Medication Instructions Recorded Confirmed Type Unknown [No Known Home Meds] 04/06/21 04/06/21 History Exam Narrative Exam Narrative: Young white male lying in bed in no acute distress. In fact I had to awaken him to inteview him and examine him. He is alert and oriented x 3 HEENT: poor oral dentition w/ many broken teeth and gingivitis; no purulent discharge Neck: supple, nontender, no adenopathy; no crepitus Lungs: clear Heart: RRR, soft ejection murmur over LLSB, no thrill or gallop Chest wall w/ bandage over 1 cm indurated, reddened pustule that has been drained Abdomen: soft, nontender, no organomegaly Extremities: multiple scabs over his arms and legs; right antecubital vein is thrombosed no edema and no cyanosis; I did not see any focal [place] lesions and no [place] nodes Results Labs Result diagrams: 04/06/21 09:30 04/06/21 09:30 Labs: Laboratory Results - last 24 hr 04/06/21 04/06/21 04/06/21 09:30 09:30 09:30 WBC 23.44 H RBC 4.55 Hgb 13.3 L Hct 40.4 MCV 88.8 MCH 29.2 MCHC 32.9 RDW 12.1 Plt Count 291 MPV 9.4 Immature Gran % 0.6 Neutrophils % 83.0 Lymphocytes % 10.1 Monocytes % 5.9 Eosinophils % 0.2 Basophils % 0.2 Nucleated RBC % 0 Absolute Neutrophils 19.46 H Absolute Lymphocytes 2.37 Absolute Monocytes 1.38 H Absolute Eosinophils 0.05 Absolute Basophils 0.05 VBG Lactate 1.3 Sodium 139 Potassium 3.1 L Chloride 101 Carbon Dioxide 23.8 Anion Gap 14.2 H BUN 9 Creatinine 0.9 Estimated GFR/1.73 m2 >= 60.00 Glucose 133 H Calcium 9.2 Magnesium Total Bilirubin 0.6 AST 13 L ALT 25 Alkaline Phosphatase 62 Creatine Kinase Troponin I Total Protein 8.7 H Albumin 3.3 L Procalcitonin COVID-19 Source SARS-CoV-2 (PCR) 04/06/21 04/06/21 04/06/21 09:30 09:30 09:30 WBC RBC Hgb Hct MCV MCH MCHC RDW Plt Count MPV Immature Gran % Neutrophils % Lymphocytes % Monocytes % Eosinophils % Basophils % Nucleated RBC % Absolute Neutrophils Absolute Lymphocytes Absolute Monocytes Absolute Eosinophils Absolute Basophils VBG Lactate Sodium Potassium Chloride Carbon Dioxide Anion Gap BUN Creatinine Estimated GFR/1.73 m2 Glucose Calcium Magnesium 2.0 Total Bilirubin AST ALT Alkaline Phosphatase Creatine Kinase Troponin I < 0.05 Total Protein Albumin Procalcitonin 0.1 COVID-19 Source SARS-CoV-2 (PCR) 04/06/21 04/06/21 09:30 10:15 WBC RBC Hgb Hct MCV MCH MCHC RDW Plt Count MPV Immature Gran % Neutrophils % Lymphocytes % Monocytes % Eosinophils % Basophils % Nucleated RBC % Absolute Neutrophils Absolute Lymphocytes Absolute Monocytes Absolute Eosinophils Absolute Basophils VBG Lactate Sodium Potassium Chloride Carbon Dioxide Anion Gap BUN Creatinine Estimated GFR/1.73 m2 Glucose Calcium Magnesium Total Bilirubin AST ALT Alkaline Phosphatase Creatine Kinase 74 Troponin I Total Protein Albumin Procalcitonin COVID-19 Source Nasal/Nares SARS-CoV-2 (PCR) Negative Last Vital Signs Temp 38.0 C H 04/06/21 14:19 Pulse 94 H 04/06/21 14:19 Resp 24 04/06/21 14:19 BP 142/85 H 04/06/21 14:19 Pulse Ox 98 04/06/21 14:19
[2021-04-06] MEDS: HYDROmorphone 2 MG TAB PO ×2 (17:32→21:06)
[2021-04-06] MEDS: Potassium Chloride 20 MEQ TABCR PO (19:24)
[2021-04-06] MEDS: Acetaminophen 325 MG TAB PO (19:24)
[2021-04-06] MEDS: VANCOMYCIN/WATER (PEG) 1.5 GM/300 ML BAG IV (21:07)
--- NOTE | 2021-04-07 | DI.MRI_ITS ---
Exam(s) MR CERVICAL SPINE WO EXAM: MR CERVICAL SPINE WO CLINICAL HISTORY: fever, neck pain, bacteremia. TECHNIQUE: Multiplanar multisequence MRI was performed. COMPARISON: No exams were available for comparison FINDINGS: MR examination of the cervical spine was performed according to the usual protocol. There is no cervical mass or adenopathy. Prevertebral soft tissues show normal signal. No focal bony signal abnormality seen. Spinal cord appears normal. No focal disc herniation. Central spinal canal and neural foramina appe ar intact with no evidence of stenosis. No epidural fluid collection or mass. Note is made of increased signal in left sternocleidomastoid muscle inferiorly, possibility of inflam matory process is raised although the findings may be artifactual. Probably artifactual flow void noted in right vertebral artery, please correlate clinically. IMPRESSION: No evidence of spinal pathology in the cervical region. Question increased signal in inferior most visualized portions of left sternocleidomastoid muscle, ad ditional evaluation with CT or MR of the thorax may be considered if clinically appropriate period Probably artifactual findings in right vertebral artery, please correlate clinically. DATA REPOSITORY:
[2021-04-07] MEDS: HYDROmorphone 2 MG TAB PO (00:51)
[2021-04-07] MEDS: Acetaminophen 325 MG TAB PO (01:07)
[2021-04-07] MEDS: Normal Saline Flush 10 ML SYR IVP ×2 (01:08→10:33)
[2021-04-07] MEDS: HYDROmorphone 4 MG TAB PO ×3 (02:39→13:48)
[2021-04-07 03:22] VITALS: BP 135/76; PULSE 55; RESP 18; TEMP 37.1; O2SAT 98
[2021-04-07] MEDS: Ketorolac 30 MG/ML VIAL IVP ×3 (04:33→16:16)
[2021-04-07] MEDS: VANCOMYCIN/WATER (PEG) 1.5 GM/300 ML BAG IV ×2 (05:29→14:45)
[2021-04-07 06:57] LABS: Abs Immature Grans 0.14 10^3/uL (0.0-0.06); Absolute Basophil Count 0.07 10^3/uL (0.0-0.2); Absolute Eosinophil Count 0.09 10^3/uL (0.0-0.7); Absolute Monocyte Count 1.67 10^3/uL (0.1-0.8); Absolute Neutrophil Count 18.34 10^3/uL (1.2-6.7); Basophils % 0.3; Eosinophils % 0.4; HGB 11.3 g/dL (13.5-17.5); Immature Grans % 0.6; MCH 29.2 pg (27.0-33.0); MCHC 32.3 % (32.0-36.0); MCV 90.4 fL (80-95); MPV 9.4 fL (8.0-11.0); Monocytes % 7.4; Neutrophils % 81.3; Nucleated RBC 0 %; Platelet Count 276 10^3/uL (130-400); RBC 3.87 10^6/uL (4.36-5.78); RDW 12.1 % (11.8-14.1); RDW-SD 39.8 fL; WBC 22.56 10^3/uL (4.4-10.8)
--- NOTE | 2021-04-07 06:57 | NUR.NOTE ---
Patient keeps threatening to leave the hospital because his son will be doing surgery at [facility] in the morning.
[2021-04-07 07:00] LABS: Absolute Lymphocyte Count 2.26 10^3/uL (1.2-3.4)
--- NOTE | 2021-04-07 07:03 | NUR.NOTE ---
Nursing Note: 0652: RN enters pt's room to find pt not present. IV pump alarming; tubing laid on bureau with roller clamp to stop fluid with downstream occulsion as the reason for alarm. urinal present with urine. pt belongings still present. this scribe goes to ask if anyone knew where pt was and no one knew pt's location. CC's Katelyn state he was present when they rounded approximately 5 minutes earlier, RN Saima states pt was just in his room. shower rooms were also empty. pt returns to floor at approximately 0657 from going out to see my son, he's having surgery today at [facility], I just wanted to see him. pt smells of cigarettes. CC Fabienne and Leanne round again in room, Saima evaluates pt upon return. continue to monitor.
--- NOTE | 2021-04-07 07:26 | NUR.NOTE ---
Nursing Note: 0655 This RN was sitting with another patient. The patient in room 207 was noted by staff to be absent. Patient could not be located on the floor. 0705 Staff noted patient exiting elevator and returning to room. Patient was noted to have the smell of cigarettes on him and the patient stated he was Outside saying good bye to his child who was scheduled for an operation. CC notified.
[2021-04-07 07:47] LABS: ALT 16 U/L (16-63); AST 10 U/L (15-37); Albumin 2.4 g/dL (3.4-5.0); Alkaline Phosphatase 49 U/L (46-116); Anion Gap 11.3 mmol/L (3-11); BUN 6 mg/dL (7-18); Bilirubin, Total 0.7 mg/dL (0.2-1.0); C-Reactive Protein 12.66 mg/dL (0.0-0.3); CO2 24.7 mmol/L (21.0-32.0); CREATININE 0.8 mg/dL (0.70-1.30); Chloride 105 mmol/L (98-107); Glucose 139 mg/dL (74-106); Sodium 141 mmol/L (136-145); TSH (W/Ref FT4) 0.19 uIU/mL (0.36-3.74); Total Protein 6.8 g/dL (6.4-8.2)
[2021-04-07 07:49] LABS: Potassium 2.9 mmol/L (3.5-5.1)
[2021-04-07 08:05] LABS: FREE T4 1.45 ng/dL (0.76-1.46)
[2021-04-07 08:41] VITALS: BP 142/80; PULSE 82; RESP 16; TEMP 37; O2SAT 99
[2021-04-07] MEDS: Potassium Chloride 20 MEQ TABCR 40 MEQ PO ×2 (08:44→10:34)
[2021-04-07] MEDS: Potassium Chloride 20 MEQ TABCR PO ×2 (08:45→14:46)
--- NOTE | 2021-04-07 08:53 | PDOC.CMIN ---
- If Service Date Differs Date of service: 04/07/21 Time of Service: 08:53 Care Management Initial Assess REASON FOR HOSPITALIZATION:: Abscess/cellulitis of chest wall PAST MEDICAL HISTORY/PAST SURGICAL HISTORY:: Medical History (Updated 04/06/21 @ 17:24 by Lei Benitez). Heroin abuse. No significant past medical history. Surgical History (Updated 04/06/21 @ 17:24 by Lei Benitez). History of surgery on extremity. right leg surgery; age 10 yr old PREVIOUS FUNCTIONAL STATUS/SOCIAL/FAMILY SUPPORTS:: Roel lives in a single family home in [place], [place] with his Beena and 3 of their children, ages 20, 11 and 7. 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 Roel is independent at baseline and does not receive any community services. CURRENT FUNCTIONAL STATUS:: Roel was lying in bed when CM met with him. He was polite but did not maintain eye contact or initiate any conversation. CM asked Roel about his drug use and if he would be open to treatment. He stated that if he wants to quit, that he will do it on his own. He stated that he quit for 2 1/2 years but relapsed about a year or year and a half ago. He maintained that he only started injecting heroin recently, having snorted it before. He declined the support of a assistant baseball coach. Roel asked CM how long he would need to be hospitalized as he feels he needs to get home and get back to work. CM explained that he will likley need IVAB for a while but that there are several options for that care, including home therapy and outpatient infusions.. ADVANCE DIRECTIVES:: Roel has no advanced directives and is not interested. Has patient been provided with info about the portal/API?: Yes Did the patient sign up for the portal?: No CODE STATUS:: Full Code INSURANCE COVERAGE / FINANCIAL ISSUES:: Medicaid CURRENT HOME/COMMUNITY SERVICES/EQUIPMENT:: none PRIMARY CARE PHYSICIAN:: Regina Bowman POTENTIAL DISCHARGE NEEDS:: follow up with PCP and discharge plan of care PATIENT/FAMILY EDUCATION NEEDS:: Review of discharge instructions, medications, follow up plan, Ask Me Three TRANSPORTATION:: via private vehicle PLAN:: Roel will likely be discharged home with no new services. He will follow up with his plan of care and transport with friends or family. CM will continue to support Roel and his discharge planning needs.
--- NOTE | 2021-04-07 09:00 | DI.US_ITS ---
APPROVED REPORT EXAM: Comprehensive 2D, Doppler, and color-flow Echocardiogram Patient Location: In-Patient Room/Bed: [facility] Edger Technician: Oneyda Bahena RDCS (AE) Indications: IVDA Other Information Study Quality: Adequate. Technically limited study due to inability to position patient. Conclusion Normal left ventricular wall thickness and chamber size. Estimated ejection fraction is 60 to 65%. There are no segmental wall motion abnormalities Normal right ventricular size and systolic function Both atria are normal in size There are no structural or hemodynamically significant valvular abnormalities Wall motion Left Ventricle The left ventricle is normal size. The left ventricular systolic function is normal. The left ventric ular ejection fraction is within the normal range. There is normal left ventricular wall thickness. T here is normal LV segmental wall motion. There is no ventricular septal defect visualized. LVEF is 60 -65%. Right Ventricle The right ventricle is normal size. The right ventricular systolic function is normal. Atria The left atrium size is normal. The right atrium size is normal. The interatrial septum is intact wit h no evidence for an atrial septal defect. Aortic Valve The aortic valve is normal in structure. Aortic valve is trileaflet. There is no aortic valvular sten osis. No aortic regurgitation is present. There is no aortic valvular vegetation. Mitral Valve The mitral valve is normal in structure. No evidence of mitral valve stenosis. Trace mitral regurgita tion. There is no evidence of mitral valve vegetations. Tricuspid Valve The tricuspid valve is normal in structure. There is no tricuspid valve stenosis. Trace tricuspid reg urgitation. Unable to assess PA pressure. There is no tricuspid valve vegetations. Pulmonic Valve Pulmonic valve is not well visualized. There is no pulmonic valvular stenosis. There is no pulmonic v alvular regurgitation. Great Vessels The aortic root is normal in size. Ascending aorta is not well visualized. Aortic arch is normal in c aliber. The IVC collapses <50% with normal inspiration. Pericardium There is no pericardial effusion. 2D Dimensions IVSD d PLAX 0.96 cm M: 0.6-1.2 LV Vol A2C d MOD 148.4 mL LVPW d PLAX 0.97 cm M: 0.6 - 1.2 LV Vol A4C d MOD 142.1 mL LVID d PLAX 5.28 cm M: 4.2 - 5.8 LA vol/ BSA A2C s A-L 35.1 mL/m2 LVDs 3.60 cm M: 2.5 - 4.0 LA vol/ BSA A4C s A-L 25.5 mL/m2 Ao Root d 3.08 cm M: 3.1 - 3.7 LA Vol/ BSA Biplane s A-L 30.0 mL/m2 RA Area A4C 14.56 cm2 LA Area A4C s MOD 18.69 cm2 RA Vol/ BSA A4C s A-L 18.0 mL/m2 LA Area A2C s MOD 21.85 cm2 LV EF Teichholz 58.8 % LV EF A4C MOD 57.3 % LVEF (Lopez's) 56.84 % M: 52 - 72 LV EF A2C MOD 57.1 % LV Volume 108.14 mL M: 62 - 150 LV EF Biplane MOD 56.8 % LV Volume Index 53.00 mL/m2 M: 34 - 74 SV 82.49 mL LV Vol Biplane MOD 145.1 mL SV Index 40.44 mL/m2 FS 31.35 % LV Diastology MV E' medial 0.150 (>0.07 m/s) E/A Ratio 1.4 LV E/e MED 5.90 (<14) MV E Vmax 0.89 (0.4-1.3 m/s) MV E' lateral 0.178 (>0.1 m/s) MV A Vmax 0.65 (0.4-1.3 m/s) LV E/e LAT 5.00 (<14) MV E/A Ratio 1.33 MV E/E' medial 5.93 MV E/E' lateral 5.01 Aortic Valve LVOT Area 3.01 cm2 AoV Area Vmax 2.55 cm2 LVOT Vmax 1.44 m/s AoV Area/ BSA (Vmax) 1.25 cm2/m2 LVOT Mean Cb. 0.88 m/s TERESE Mean Cb. 2.40 cm2 LVOT Peak Grad 8.2 mmHg TERESE Mean Cb. Index 1.18 cm2/m2 LVOT Mean Grad 3.8 mmHg LVOT VTI 0.261 m LVOT Diam s 1.95 cm AoV Vmax 1.69 m/s Velocity Ratio 0.85 AoV Mean Cb. 1.11 m/s AoV Peak Grad 11.5 mmHg LVOT SV 78.64 mL AoV Mean Grad 5.7 mmHg AoV VTI 0.287 m AoV Area VTI 2.74 cm2 AoV Area/ BSA (VTI) 1.34 cm/m2 Mitral Valve MV DT 199 (160-240 msec) MV PHT 58 msec MV Area PHT 3.82 cm2 MV VTI 0.267 m MV Area VTI 2.94 (4.0-6.0 cm2) Pulmonary Valve PV Vmax 1.27 (0.5-1.5 m/s) RVOT Peak Gr. 3.10 mmHg PV Peak Grad 6.5 mmHg RVOT Mean Gr. 1.60 mmHg PV Mean Grad 3.9 mmHg RVOT VTI 0.163 m PV VTI 0.261 m RVOT Vmax 0.88 m/s
--- NOTE | 2021-04-07 12:29 | PHACLINREV_ITS ---
Pharmacy Admission Review - Admission Clinical Review Heroin abuse (Acute) Abscess or cellulitis of chest wall (Acute) IVDU (intravenous drug user) (Acute) No Known Allergies Allergy (Unverified 04/06/21 09:37) Resuscitation Status Full Code Height 5 ft 8.9 in Weight 89.7 kg - Renal Dosing Renal Dosing: BUN 6 mg/dL (7-18) L 04/07/21 06:10 Creatinine 0.8 mg/dL (0.70-1.30) 04/07/21 06:10 Medications needing adjustments: Reviewed (Crcl ~119 mL/min, current meds are okay.) - Anticoagulation Anticoagulation: Hgb 11.3 g/dL (13.5-17.5) L 04/07/21 06:10 Hct 35.0 % (40.0-50.0) L 04/07/21 06:10 Plt Count 276 10^3/uL (130-400) 04/07/21 06:10 Creatinine 0.8 mg/dL (0.70-1.30) 04/07/21 06:10 DVT Prophylaxis: Reviewed Medications: Enoxaparin - Opiate Usage Evaluate Pain Scale/Pains Meds: Reviewed Scheduled Bowel Reg ordered if on Opiates?: No (prn meds) - Relevant Labs Sodium 141 mmol/L (136-145) 04/07/21 06:10 Potassium 2.9 mmol/L (3.5-5.1) L 04/07/21 06:10 Chloride 105 mmol/L (98-107) 04/07/21 06:10 Magnesium 2.0 mg/dL (1.8-2.4) 04/07/21 06:10 C-Reactive Protein 12.66 mg/dL (0.0-0.3) H 04/07/21 06:10 Electrolytes, C-Reactive P, ESR: Reviewed (PO K+ replacement ordered) - DM Control DM Control: Glucose 139 mg/dL (74-106) H 04/07/21 06:10 Insulin Dosing: N/A (BG mildly elevated, no A1c on file, no history of DM noted in medical history.) - Heart Failure/HI Heart Failure/HI: Troponin I < 0.05 ng/mL (<0.06) 04/06/21 09:30 EF%, CARO's, B-Blockers, Diuretics: Reviewed - BP Control BP Control: Blood Pressure 142/80 Blood Pressure 135/76 If elevated: Reviewed (BP has been up and down so far this admission.) - Qtc Review If Elevated: N/A (QTc 434 on admission) - IV to PO Switch IV Medications: Reviewed - Home Meds Home Med List reviewed: Reviewed Relevent Home Meds Not ordered & why?: no known home meds - Current meds Current Medication Order Review: Intervened (Discontinued DI meds that had alr robert been given.) - Comments Comments/Follow Ups: Watch BP, K+, labs, for micro results and for med changes (possible need of additional BM meds). Antibiotic Activity - Pharmacy Antibiotic Review Pharmacy Antibiotic Activity: Antibiotic de-escalation - Antibiotic Information Antibiotic Review Info: BC growing staph species and abscess is growing MRSA. Zosyn discontinued. Vanco continues (day 2 starts this afternoon). Vanco trough came back at 10.5. provider wanted to increase the dose to 2 grams Q8H despite targeted trough being less than 15 and AUC/ZULAY being 609. Repeat trough ordered for tomorrow. Please review and adjust dosing if necessary. Watch for sensitivities, as provider mentioned possibly changing to daptomycin.
[2021-04-07 12:51] VITALS: BP 127/79; PULSE 68; RESP 16; TEMP 36.6; O2SAT 98
[2021-04-07 13:58] LABS: Vancomycin, Trough 10.5 ug/mL (10.0-20.0)
--- NOTE | 2021-04-07 14:49 | W.PM.PROGNOT ---
Date of Service Date of service: 04/07/21 Time of Service: 14:49 Assessment and Plan Assessment and plan (1) Staphylococcus aureus bacteremia: Status: Acute Assessment and plan: Echocardiogram was performed this morning and showed normal left ventricular size and function and normal valves. No vegetations were seen on his tricuspid or mitral or aortic valves. dc Zosyn and continue Vancomycin @ 2 gm IV q8hr. (2) Abscess or cellulitis of chest wall: Status: Acute Assessment and plan: s/p I.D. and wound is growing MRSA; antibiotics as above. (3) Heroin abuse: Status: Acute Assessment and plan: patient in significant pain out of proportion to the chest wall abscess. He has required a significant amount of dilaudid while in the ER. I have put him on toradol for his pain but also have incuded oral dilaudid. I am not going to treat w/ parenteral narcotics. Oral narcotic analgesic will last longer to control his pain. The toradol will help w/ infllammation. (4) IVDU (intravenous drug user): Status: Acute (5) Neck pain: Status: Acute Assessment and plan: check MRI of c-spine and t-spine; r/o osteomyelitis Subjective Subjective Interval history since last seen: Patient w/ c/o of left sided neck pain and left shoulder pain in addition to his CW pain. Blood cultures are positive for Staph species and his wound cultures is positive for MRSA. He is currently on Vancomycin 1.5 gm IV q8hr. I spoke w/ Ifrah from pharmacy. She is concerned that in order to get his AUC to therapeutic he will need 2 gm q8h but is concerned that his trough will be too high. However, in light of his Staph bacteremia and likelihood of endocarditis, I am going to have her increase his doseage for now and dc his Zosyn since he does not need coverage for anaerobes or gram negative. I have placed a call to ID at [facility], Dr. Lugo to discuss management/optimal dosing and duration of therapy. I suspect that he will need 6 weeks of antibiotic therapy. Exam Narrative Exam Narrative: Young white male lying in bed semisolid position who appears to be uncomfortable he has a K pad over his left shoulder. Examination of his neck reveals tenderness along the left cervical spine and left-sided neck muscles as well as over the supraclavicular area and left shoulder. Lungs with some scattered rhonchi Heart regular rate and rhythm with soft systolic murmur along the left lower sternal border Abdomen soft nontender nondistended. Chest wall with area of erythema and tenderness over the left anterior chest wall between the sternum and the pectoralis muscle on the left. Objective Last Vital Signs Temp 36.6 C 04/07/21 12:51 Pulse 68 04/07/21 12:51 Resp 16 04/07/21 12:51 BP 127/79 04/07/21 12:51 Pulse Ox 98 04/07/21 12:51 Laboratory Results - last 24 hr 04/07/21 04/07/21 04/07/21 06:10 06:10 13:20 WBC 22.56 H RBC 3.87 L Hgb 11.3 L Hct 35.0 L MCV 90.4 MCH 29.2 MCHC 32.3 RDW 12.1 Plt Count 276 MPV 9.4 Immature Gran % 0.6 Neutrophils % 81.3 Lymphocytes % 10.0 Monocytes % 7.4 Eosinophils % 0.4 Basophils % 0.3 Nucleated RBC % 0 Absolute Neutrophils 18.34 H Absolute Lymphocytes 2.26 Absolute Monocytes 1.67 H Absolute Eosinophils 0.09 Absolute Basophils 0.07 Sodium 141 Potassium 2.9 L Chloride 105 Carbon Dioxide 24.7 Anion Gap 11.3 H BUN 6 L Creatinine 0.8 Estimated GFR/1.73 m2 >= 60.00 Glucose 139 H Calcium 8.0 L Magnesium 2.0 Total Bilirubin 0.7 AST 10 L ALT 16 Alkaline Phosphatase 49 C-Reactive Protein 12.66 H Total Protein 6.8 Albumin 2.4 L TSH 0.19 L Free T4 1.45 Vancomycin Trough 10.5
[2021-04-07 15:31] VITALS: BP 124/79; PULSE 86; RESP 16; TEMP 36.6; O2SAT 98
[2021-04-07] MEDS: Enoxaparin 40 MG/0.4 ML SYR SC (16:16)
[2021-04-07] MEDS: diazePAM 5 MG TAB PO (16:16)
[2021-04-07 16:43] LABS: Potassium 3.5 mmol/L (3.5-5.1)
--- NOTE | 2021-04-07 18:01 | DI.VRAD_ITS ---
PROCEDURE INFORMATION: Exam: MR Cervical Spine Without Contrast Exam date and time: 04/07/2021 5:17 PM Age: 41 years old Clinical indication: Patient HX: Fever, bacteremia, left neck pain radiating to shoulder; Additional info: Exam ordered without and with but patient could not tolerate any more imaging TECHNIQUE: Imaging protocol: Multiplanar magnetic resonance images of the cervical spine without contrast. COMPARISON: CT CHEST W 04/06/2021 10:30 AM FINDINGS: Limitations: The lack of intravenous contrast limits evaluation of the solid organs and limits evaluation for any abscess formation. Vertebrae: Unremarkable. Spinal cord: Normal signal. No cord compression. C2-C3: No significant disc disease. No significant spinal stenosis. C3-C4: No significant disc disease. No significant spinal stenosis. C4-C5: No significant disc disease. No significant spinal stenosis. C5-C6: No significant disc disease. No significant spinal stenosis. C6-C7: No significant disc disease. No significant spinal stenosis. C7-T1: No significant disc disease. No significant spinal stenosis. Soft tissues: There is possible edema seen at the lower left sternocleidomastoid muscle, partially visualized (image 6, series 31714). Vertebral arteries: Incidentally noted is a small region of flow-void in the right vertebral artery (image 4, series 5001). IMPRESSION: 1. No evidence of significant degenerative changes in the cervical spine. 2. Likely edema within the lower left sternocleidomastoid muscle, although not well evaluated on this scan. This finding could be related to known left chest wall inflammatory process. 3. No large fluid collection is seen, however the lack of intravenous limits evaluation for any abscess formation. 4. Incidentally noted region of absent flow void in the right vertebral artery. This finding could be artifactual, however if there is clinical concern for right vertebral artery pathology, a CT angiogram may be considered for further evaluation. Dictated and Authenticated by: Chelsey Tong MD. [facility] Emmanuel Odom MD
[2021-04-08 11:32] LABS: HIV-1/2 Ag & Ab Screen Negative (Negative)
[2021-04-08 11:48] LABS: Hepatitis A Antibody IgM Negative (Negative); Hepatitis B Core Antibody Negative (Negative); Hepatitis B surface Ag Negative (Negative); Hepatitis C Ab w Rflx HCV PCR Negative (Negative)
--- NOTE | 2021-04-08 16:31 | W.PM.DS.N ---
Date of service: 04/07/21 Time of Service: 18:10 DS: Diagnosis Discharge Diagnosis (1) Staphylococcus aureus bacteremia: Status: Acute (2) Abscess or cellulitis of chest wall: Status: Acute (3) Heroin abuse: Status: Acute (4) IVDU (intravenous drug user): Status: Acute (5) Neck pain: Status: Acute Discharge Plan Disposition Patient Disposition: AGAINST MEDICAL ADVICE Condition: Stable Discharge Details Reason For Visit: Cellulitis Admit Date/Time: 04/06/21 13:11 Admit Provider: Lei Benitez Attending Provider: Lei Benitez Primary Care Provider: Regina Bowman Hospital Course Hospital Course: 41 yr old male w/ hx of heroin abuse (currently uses) who preseented to the hospital 04/06 w/ symptoms of left anterior chest wall pain, erythema and swelling along w/ fevers. Workup in the ER included chest CT that demonstrated soft tissue inflammatory changes in the left anterior chest wall involving the medial aspect of his left pectoralis muscle. No involvement of his thoracic cavity was seen. He also had mild right lower lobe subpleural increased markings in the superior segment. Labs were remarkable for WBC 23,000 w/ left shift, normal lactate 1.3, potassium of 3.1, procalcitonin of 0.1, nasal PCP for SARS-CoV2 that was negative. Because of complaints of left foot pain on the arch and xray was obtained of his left foot which showed no osseous changes but mild soft tissue swelling on the dorsum. Patient was seen in the ER by Dr. Noyola from surgery who performed a needle aspiration of the chest wall abscess and this culture grew MRSA. he had blood cultures drawn in the ER and this also grew MRSA. He was initially put on Zosyn and Vancomcyin but when his cultures returned positive for methicillin resistant Staphylococcus aureus, his Zosyn was stopped. His potassium was corrected w/ oral supplementation. He was given dilaudid and ketorolac for his pain. An echocardiogram was ordered to rule out vegetations of his valves. The echo demonstrated normal LV and RV size and function and no valvular vegetations was seen on transthoracic echocardiogram.Because of complaints of neck pain and swelling and MRI of the c-spine w/ contrast was ordered but d/t patient being intolerant to lie long enough for the contrast enhanced MRI only a non-contrast MRI was done of his spine. This showed no acute spinal pathology but demonstrated questionable increased signal in the inferior most visualized portions of the left sternocleidomastoid muscle. The patient left the hospital at 18:05 on 04/07/2021 against medical advice. The nocurnist was notified by nursing staff. Home Meds and New Rx's Prescriptions: No Action No Known Home Meds RF: 0 Discharge Instructions Activity:: Activity as Tolerated Equipment/Supplies:: No Equipment Needed Diet:: Normal Diet Discharge Orders Discharge Orders: Discharge Order (Routine); Ordered 04/07/21 Ordered By: Lei Benitez Discharge Data Discharge Date/Time-TO BE ENTERED AT DEPARTURE: 04/07/21 18:03 DS: Summary Time Spent with Patient providing and/or coordinating discharge services: Less than 30 minutes Status at Discharge Functional status at discharge: independent ambulation Overall status at discharge: patient is not back to baseline Mental Status: mental status grossly normal Speech and Movement: speech and movement normal Mood: congruent mood Affect: normal affect Exam Psych Mental Status: mental status grossly normal Speech and Movement: speech and movement normal Mood: congruent mood Affect: normal affect DS: Data Vitals/I&O Vitals and I&O: Vital Signs Temperature 36.6 C 04/07/21 15:31 Temperature Source Tympanic 04/07/21 15:31 Pulse 86 04/07/21 15:31 Pulse Rhythm Regular 04/07/21 15:40 Pulse 82 04/06/21 13:40 Respiratory Rate 16 04/07/21 15:31 Respiratory Effort Non-Labored 04/07/21 15:40 Respiratory Depth Normal 04/07/21 15:40 Respiratory Pattern Normal 04/07/21 15:40 Blood Pressure 124/79 04/07/21 15:31 Blood Pressure Mean 69 04/06/21 13:31 Blood Pressure Position Supine 04/06/21 09:09 Pulse Oximetry 98 04/07/21 15:31 Oxygen Delivery Method Room Air 04/07/21 15:31 Oxygen Flow Rate 0 04/07/21 15:31 Pain Level 7 04/07/21 16:16 Intake & Output 04/07/21 04/08/21 04/08/21 23:59 11:59 23:59 Intake Total 1457 / 1867 Balance 1457 / 1167 Intake: IV 100 / 510 Oral 1357 / 1357 Other: Urine Appearance Clear Data Completed and Pending Labs on day of discharge: Labs from last 24 hours 04/07/21 04/06/21 04/06/21 16:25 09:30 09:30 Potassium 3.5 Hepatitis A IgM Ab Negative Hep Bs Antigen Negative Hep B Core Total Ab Negative Hepatitis C Antibody Negative HIV 1&2 Ag/Ab, 4th Gen Negative Preliminary micro results at discharge 04/06/21 10:05 Blood Culture - Preliminary Blood Staph aureus, MRSA 04/06/21 09:30 Blood Culture - Preliminary Blood Staph aureus, MRSA 04/06/21 13:30 Abscess Culture - Preliminary Chest - Left Lower Staph aureus, MRSA PFSH Medical History Heroin abuse No significant past medical history Surgical History History of surgery on extremity right leg surgery; age 10 yr old Family History Sister [place] chorea Mother [place] chorea Social History Smoking/Tobacco Use Status: Current every day Tobacco Type: cigarettes Smoking packs per day: 1 Smoking cigarettes per day: 20.0 Smoking risk assessment performed?: Yes Alcohol Intake: never Drug use: Daily Substance use type: heroin Do you feel safe at home: Yes Do you feel safe in your relationship?: Yes
== END 2021-04-07 18:03 | disposition left against medical advice (07) | DRG 603 ==
LOC: ER 13:22 → MS 14:05
PROVIDERS: Admitting Provider Internal Medicine; Emergency Provider Student in an Organized Health Care Education/Training Program; PCP Physician Assistant Medical; Visit Provider Internal Medicine
DX: L02.213 Cutaneous abscess of chest wall (principal); F11.20 Opioid dependence, uncomplicated; F14.10 Cocaine abuse, uncomplicated; B95.62 Methicillin resistant Staphylococcus aureus infection as the cause of diseases classified elsewhere; L03.313 Cellulitis of chest wall; F17.210 Nicotine dependence, cigarettes, uncomplicated; R11.2 Nausea with vomiting, unspecified; Z20.822 Contact with and (suspected) exposure to COVID-19; M79.672 Pain in left foot; M54.2 Cervicalgia
CPT/HCPCS: 10160; 36415; 80053; 82550; 84145; 86704; 86709; 86803; 87040; 87077; 87340; 87389; 87635; 93005; 96361; 96365; 96366; 96367; 96375; 96376; 99285; J1650; 71260; 72141; 73630; 80202; 83605; 83735; 84132; 84439; 84443; 84484; 85025; 86140; 87070; 87186; 87205; 93010; 93306; 99222; 99232; J0131; J1885; J2060; J2543; J3480; J3490

== ENCOUNTER 2021-04-08 07:44 | Inpatient (IN) | payer MEDICAID, SELFPAY ==
[2021-04-08] VITALS (33 sets, daily range): BP systolic 118–155; BP diastolic 61–105; PULSE 74–98; RESP 16–34; TEMP 36–38.1; O2SAT 96–99
--- NOTE | 2021-04-08 | DI.MRI_ITS ---
Exam(s) MR CHEST WO/W EXAM: MR CHEST WO/W CLINICAL HISTORY: Chest wall abscess, MRSA bacteremia. TECHNIQUE: Multiplanar multisequence MRI was performed. COMPARISON: No exams were available for comparison FINDINGS: MR examination the upper thorax was performed utilizing multi planer imaging prior to and following i ntravenous infusion of contrast material. There is reportedly a suspicion of a chest wall abscess. There is increased signal on T2 weighted images in the supraclavicular and retroclavicular region on the left. There is no fluid in the sternoclavicular joints. There is no gross bony erosion of the r ight or left clavicle. There is no significant signal abnormality in the right or left clavicle or i n the sternum. At the level of the left 2nd rib sternal attachment, there is enhancement in in and posterior to the pectoralis major muscle. There is a possible small tract ex standing from skin or subcutaneous tissu es to the level of the manubrium with minimal internal fluid and surrounding edema. This has appeara nce of a small flattened abscess cavity containing minimal fluid. No additional suspicious findings for chest wall abscess. No specific evidence of osteomyelitis. No abnormal signal or fluid collecti on in the mediastinum. IMPRESSION: The appearance is consistent with cellulitis of the supraclavicular and infraclavicular region with s uspicion of a small flat abscess cavity in or posterior to the pectoralis major at the level of the l eft 2nd rib/manubrium anteriorly. The suspected small abscess is difficult to measure precisely but appears to measure about 25 x 10 x 3 millimeters. No evidence of a sternoclavicular abscess or osteomyelitis. DATA REPOSITORY:
--- NOTE | 2021-04-08 08:00 | RT.EKG_ITS ---
APPROVED REPORT Exam: Resting ECG Reason for Exam: chest discomfort Patient Location: E HR:89 bpm ECG Measurements Heart Rate 89 AXIS KS 156 P 37 QRSd 90 QRS 46 QT 334 T 15 QTc 407 Conclusion Sinus rhythm...normal P axis, V-rate 60- 99. Sinus. No STEMI. I have reviewed and interpreted ECG and agree with software generated interpretation.
--- NOTE | 2021-04-08 08:25 | W.ED.GENAD ---
Discharge Plan Disposition Patient Disposition: [facility] INPATIENT Condition: Stable Discharge Details Clinical Impression: Abscess or cellulitis of chest wall, IVDU (intravenous drug user), Heroin abuse, Staphylococcus aureus bacteremia, Neck pain Admit Date/Time: 04/08/21 10:43 Admit Provider: Lei Benitez Attending Provider: Lei Benitez Primary Care Provider: Regina Bowman ED Provider: Flory Felipe Medical Decision Making 0815 -- 41-year-old male with a history of IV drug abuse admitted here 2 days ago for a chest wall abscess which grew MRSA and blood and urine cultures who left AMA yesterday presents for continued left-sided chest and neck pain. Patient appears ill and uncomfortable. Vitals within normal limits. Temp 99 5. Left-sided chest wall I&D appears minimally erythematous but there is erythema that is tender in the left upper anterior chest superior to this. Patient will likely need readmission for IV antibiotics. He had a normal echo without evidence of vegetation yesterday. Cervical spine MRI from yesterday noted IMPRESSION: No evidence of spinal pathology in the cervical region. Question increased signal in inferior most visualized portions of left sternocleidomastoid muscle, additional evaluation with CT or MR of the thorax may be considered if clinically appropriate period Probably artifactual findings in right vertebral artery, please correlate clinically. We will repeat labs, blood cultures, lactate. He states he was not sent home with any antibiotics. He is requesting pain medication. He was given a IV Dilaudid initially and then transition to IV Toradol and p.o. Dilaudid before he left AMA. 0930 -- Labs reviewed. White blood cell count 23, was 22 yesterday. Lactate 0.7. Troponin negative. COVID negative. 1025 -- Case discussed with hospitalist service who accepts patient for admission. Recommends vancomycin for pharmacy to dose now. No additional recommendations or imaging. Medical Records Medical records reviewed: Yes I reviewed the patient's medical records. Lab Data Lab results reviewed: Yes I reviewed the patient's lab results. Labs: 04/08/21 09:17 Blood Blood Culture - Pending 04/08/21 09:05 Blood Blood Culture - Pending Laboratory Tests Range/Units 04/08/21 04/08/21 04/08/21 08:24 09:19 09:19 WBC (4.4-10.8) 10^3/uL 23.53 H RBC (4.36-5.78) 10^6/uL 3.92 L Hgb (13.5-17.5) g/dL 11.5 L Hct (40.0-50.0) % 34.9 L MCV (80-95) fL 89.0 MCH (27.0-33.0) pg 29.3 MCHC (32.0-36.0) % 33.0 RDW (11.8-14.1) % 12.3 Plt Count (130-400) 10^3/uL 316 MPV (8.0-11.0) fL 8.8 Immature Gran % 0.7 Neutrophils % 82.7 Lymphocytes % 9.9 Monocytes % 6.3 Eosinophils % 0.1 Basophils % 0.3 Nucleated RBC % % 0 Absolute Neutrophils (1.2-6.7) 10^3/uL 19.46 H Absolute Lymphocytes (1.2-3.4) 10^3/uL 2.33 Absolute Monocytes (0.1-0.8) 10^3/uL 1.48 H Absolute Eosinophils (0.0-0.7) 10^3/uL 0.02 Absolute Basophils (0.0-0.2) 10^3/uL 0.07 VBG Lactate (0.6-1.4) mmol/L 0.7 Sodium (136-145) mmol/L 136 Potassium (3.5-5.1) mmol/L 3.4 L Chloride (98-107) mmol/L 101 Carbon Dioxide (21.0-32.0) mmol/L 27.0 Anion Gap (3-11) mmol/L 8.0 BUN (7-18) mg/dL 8 Creatinine (0.70-1.30) mg/dL 0.8 Estimated GFR/1.73 m2 (mL/min/1.73m2) >= 60.00 Glucose (74-106) mg/dL 133 H Calcium (8.5-10.1) mg/dL 8.5 Magnesium (1.8-2.4) mg/dL 2.0 Total Bilirubin (0.2-1.0) mg/dL 0.4 AST (15-37) U/L 16 ALT (16-63) U/L 27 Alkaline Phosphatase (46-116) U/L 62 Troponin I (<0.06) ng/mL < 0.05 Total Protein (6.4-8.2) g/dL 7.4 Albumin (3.4-5.0) g/dL 2.4 L COVID-19 Source SARS-CoV-2 (PCR) (Negative) Range/Units 04/08/21 09:25 WBC (4.4-10.8) 10^3/uL RBC (4.36-5.78) 10^6/uL Hgb (13.5-17.5) g/dL Hct (40.0-50.0) % MCV (80-95) fL MCH (27.0-33.0) pg MCHC (32.0-36.0) % RDW (11.8-14.1) % Plt Count (130-400) 10^3/uL MPV (8.0-11.0) fL Immature Gran % Neutrophils % Lymphocytes % Monocytes % Eosinophils % Basophils % Nucleated RBC % % Absolute Neutrophils (1.2-6.7) 10^3/uL Absolute Lymphocytes (1.2-3.4) 10^3/uL Absolute Monocytes (0.1-0.8) 10^3/uL Absolute Eosinophils (0.0-0.7) 10^3/uL Absolute Basophils (0.0-0.2) 10^3/uL VBG Lactate (0.6-1.4) mmol/L Sodium (136-145) mmol/L Potassium (3.5-5.1) mmol/L Chloride (98-107) mmol/L Carbon Dioxide (21.0-32.0) mmol/L Anion Gap (3-11) mmol/L BUN (7-18) mg/dL Creatinine (0.70-1.30) mg/dL Estimated GFR/1.73 m2 (mL/min/1.73m2) Glucose (74-106) mg/dL Calcium (8.5-10.1) mg/dL Magnesium (1.8-2.4) mg/dL Total Bilirubin (0.2-1.0) mg/dL AST (15-37) U/L ALT (16-63) U/L Alkaline Phosphatase (46-116) U/L Troponin I (<0.06) ng/mL Total Protein (6.4-8.2) g/dL Albumin (3.4-5.0) g/dL COVID-19 Source Nasal/Nares SARS-CoV-2 (PCR) (Negative) Negative HPI General Mode of arrival: ambulatory. Date/Time Provider Initiated Documentation: 04/08/21 07:46. Limitations to Documentation: no limitations. Information obtained by: patient. HPI Narrative: Patient is a 41-year-old male with a history of IV drug abuse who was admitted here 2 days ago for a left chest wall abscess which grew MRSA and wound and blood cultures who left AMA from the floor yesterday presents for continued pain in his left chest with radiation to his left neck. Patient states he is not sent home with antibiotics. Patient states he has not used IV heroin for 4 days. He denies any other alcohol or drug use. He denies any known fever, difficulty breathing. Related Data Home Medications Medication Instructions Recorded Confirmed Unknown [No Known Home Meds] 04/06/21 04/08/21 Allergies Allergy/AdvReac Type Severity Reaction Status Date / Time No Known Allergies Allergy Unverified 04/08/21 08:09 General Stated Complaint: GenMedical EVGENY: 3 Review of Systems All systems reviewed & are unremarkable except as noted in HPI and below Constitutional Constitutional: Reports as per HPI, Denies chills and Denies fever(s) Eyes Eyes: Denies blurry vision ENT Ears, Nose, Mouth, and Throat: Denies dizziness, Reports neck pain, Denies sore throat and Denies throat swelling Cardiovascular Cardiovascular: Reports chest pain and Denies dyspnea Respiratory Respiratory: Denies cough and Denies dyspnea Gastrointestinal Gastrointestinal: Denies abdominal pain, Denies diarrhea and Denies vomiting Genitourinary Genitourinary: Denies hematuria and Denies dysuria Musculoskeletal Musculoskeletal: Denies back pain, Reports neck pain and Denies numbness Integumentary/Breasts Skin/Breast: Denies lesions and Denies rash Neurologic Neurologic: Denies dizziness, Denies localized weakness and Denies numbness Allergic/Immunologic Allergic/Immunologic: Denies throat swelling [facility] Medical History Heroin abuse No significant past medical history Surgical History History of surgery on extremity right leg surgery; age 10 yr old Family History Sister Cross chorea Mother Douglas chorea Social History Smoking/Tobacco Use Status: Current every day Tobacco Type: cigarettes Smoking packs per day: 1 Smoking cigarettes per day: 20.0 Smoking risk assessment performed?: Yes Alcohol Intake: never Drug use: Daily Substance use type: heroin Do you feel safe at home: Yes Do you feel safe in your relationship?: Yes Exam Const General: cooperative and no acute distress HENMT Head: normal to inspection Face and sinus: normal facial exam Eyes General: appearance normal, both eyes and all related structures EOM: EOM intact bilaterally Neck Neck: normal visual inspection and No submandibular swelling Lymphatic: no lymphadenopathy noted Chest Chest: tenderness Resp Effort & Inspection: normal respiratory effort and able to speak in complete sentences Auscultation: clear to auscultation bilaterally Cardio Rate: regular rate Rhythm: regular rhythm GI Inspection: normal to inspection Palpation: soft, not firm, not rigid and nontender Auscultation: normal bowel sounds Male General Exam: Yes normal external exam Back/Spine/Pelvis Thoracic/Lumbar Spine: thoracic and lumbar spine normal to inspection Pelvis: no pain with anterior-posterior compression Skin General skin exam: no rashes or lesions noted Neuro General: patient alert, patient awake and patient oriented x3 Cognition: normal cognition Speech: speech normal Motor: muscle tone normal throughout Sensory Exam: no sensory deficits noted Extrem General: normal to inspection, full ROM, capillary refill normal, no calf tenderness bilaterally and no edema Psych Appearance: grossly normal Mental Status: mental status grossly normal Speech and Movement: speech and movement normal Affect: normal affect Course Vital Signs Vital signs: Vital Signs Temperature 99.5 F 04/08/21 08:07 Pulse 94 H 04/08/21 08:07 Respiratory Rate 18 04/08/21 08:07 Blood Pressure 155/87 H 04/08/21 08:07 Pulse Oximetry 98 04/08/21 08:07 Temperature 99.5 F 04/08/21 08:07 Temperature Source Temporal Artery Scan 04/08/21 08:07 Pulse 94 H 04/08/21 08:07 Respiratory Rate 18 04/08/21 08:18 Respiratory Effort Non-Labored 04/08/21 08:18 Respiratory Depth Normal 04/08/21 08:18 Respiratory Pattern Normal 04/08/21 08:18 Blood Pressure 155/87 H 04/08/21 08:07 Blood Pressure Position Sitting 04/08/21 08:07 Pulse Oximetry 98 04/08/21 08:07 Oxygen Delivery Method Room Air 04/08/21 08:07 Oxygen Flow Rate 0 04/08/21 08:07
[2021-04-08] MEDS: Ketorolac 30 MG/ML VIAL IVP ×2 (09:12→16:35)
[2021-04-08] MEDS: ACETAMINOPHEN 1,000 MG/100 ML BTL 400 MG IVPB (09:13)
[2021-04-08] MEDS: Normal Saline 1,000 ML 1000 ML IV (09:13)
[2021-04-08 09:24] LABS: Lactate 0.7 mmol/L (0.6-1.4)
[2021-04-08 09:24] LABS: Abs Immature Grans 0.16 10^3/uL (0.0-0.06); Absolute Lymphocyte Count 2.33 10^3/uL (1.2-3.4); Absolute Monocyte Count 1.48 10^3/uL (0.1-0.8); Basophils % 0.3; Eosinophils % 0.1; HCT 34.9 % (40.0-50.0); HGB 11.5 g/dL (13.5-17.5); Immature Grans % 0.7; Lymphocytes % 9.9; MCH 29.3 pg (27.0-33.0); MPV 8.8 fL (8.0-11.0); Monocytes % 6.3; Neutrophils % 82.7; Nucleated RBC 0 %; Platelet Count 316 10^3/uL (130-400); RBC 3.92 10^6/uL (4.36-5.78); RDW 12.3 % (11.8-14.1); RDW-SD 40.7 fL; WBC 23.53 10^3/uL (4.4-10.8)
[2021-04-08 09:27] LABS: Absolute Basophil Count 0.07 10^3/uL (0.0-0.2); Absolute Eosinophil Count 0.02 10^3/uL (0.0-0.7); Absolute Neutrophil Count 19.46 10^3/uL (1.2-6.7)
[2021-04-08 09:29] LABS: Source Nasal/Nares
[2021-04-08 09:40] LABS: ALT 27 U/L (16-63); AST 16 U/L (15-37); Albumin 2.4 g/dL (3.4-5.0); Alkaline Phosphatase 62 U/L (46-116); BUN 8 mg/dL (7-18); Bilirubin, Total 0.4 mg/dL (0.2-1.0); CREATININE 0.8 mg/dL (0.70-1.30); Calcium 8.5 mg/dL (8.5-10.1); Chloride 101 mmol/L (98-107); Glucose 133 mg/dL (74-106); Potassium 3.4 mmol/L (3.5-5.1); Sodium 136 mmol/L (136-145); Total Protein 7.4 g/dL (6.4-8.2)
[2021-04-08 09:43] LABS: Troponin I < 0.05 ng/mL (<0.06)
[2021-04-08 10:27] LABS: COVID-19 PCR Negative (Negative)
--- NOTE | 2021-04-08 10:52 | W.PM.HP.N ---
Date of service: 04/08/21 Time of Service: 10:52 Assessment and Plan Assessment and plan (1) MRSA bacteremia: Status: Acute Assessment and plan: Continue vancomycin with monitoring of peak and trough levels. Per my discussion with pharmacist yesterday and plan was to go with vancomycin 2 g IV every 8 hours and monitor his peak and trough levels. (2) Abscess or cellulitis of chest wall: Status: Acute Assessment and plan: We will get an MRI of his thorax to assess the extent of his abscess and I will reconsult Dr. Noyola for surgical management same. Patient will only be prescribed NSAIDs for his pain. Prior MRI of his cervical spine showed no evidence of spinal pathology however there are inflammatory changes over the sternocleidomastoid muscle on the left. I think that his chest wall abscess communicates w/ his SCM on the left. We will continue w/ Vancomycin for MRSA bacteremia and chest wall abscess and consult w/ surgery for definitive drainage procedure (3) Heroin abuse: Status: Acute History of Present Illness History of Present Illness Chief Complaint: MRSA bacteremia Narrative: 41-year-old white male known heroin abuser just left the hospital last night AGAINST MEDICAL ADVICE after being admitted for left anterior chest wall abscess that had been incised and drained and found to have MRSA and subsequent blood cultures came back positive for MRSA. Patient was on vancomycin and Zosyn. Patient left the hospital last night to allegedly take care of some business. He then returned to the emergency department this morning. Patient had a transthoracic echocardiogram performed yesterday that showed no vegetations and normal left ventricular right ventricular systolic function. Because of his complaints of neck pain and left shoulder pain cervical MRI was performed without contrast although contrast was ordered the patient cannot cooperate and lie still long enough for them to complete a contrast-enhanced MRI. MRI showed no spinal pathology in the cervical region however there was some increased signal in the inferior most visualized portion of the left sternocleidomastoid muscle. Formal CT of the chest or MRI of the chest was recommended. However the patient had previously had a CT of his chest the day before that showed an inflammatory process in the medial aspect of the anterior chest wall superficial to and possibly involving the medial aspect of the left pectoralis muscle. This area had been I&D by Dr. Noyola on admission through the emergency room on April 06, 2021. Subsequent culture grew MRSA. Blood cultures also grew MRSA. Patient initially been treated with vancomycin and Zosyn and once we had identification was cultures his antibiotics were consolidated to vancomycin. Patient will need 6 weeks of antibiotic therapy for treatment of presumptive endocarditis in addition to his chest wall abscess. Review of Systems All systems reviewed & are unremarkable except as noted in HPI and below Constitutional Constitutional: Reports chills and Reports fever(s) ENT Ears, Nose, Mouth, and Throat: Reports neck pain Cardiovascular Cardiovascular: Reports chest pain (chest wall pain and swelling) Respiratory Respiratory: Reports system reviewed and no additional complaints, except as documented Musculoskeletal Musculoskeletal: Reports neck pain [facility] Medical History Heroin abuse No significant past medical history Surgical History History of surgery on extremity right leg surgery; age 10 yr old Family History Sister [place] chorea Mother [place] chorea Social History Smoking/Tobacco Use Status: Current every day Tobacco Type: cigarettes Smoking packs per day: 1 Smoking cigarettes per day: 20.0 Smoking risk assessment performed?: Yes Alcohol Intake: never Drug use: Daily Substance use type: heroin Do you feel safe at home: Yes Do you feel safe in your relationship?: Yes Meds Allergies and Home Medications Allergies Allergy/AdvReac Type Severity Reaction Status Date / Time No Known Allergies Allergy Unverified 04/08/21 08:09 Home Medications Medication Instructions Recorded Confirmed Type Unknown [No Known Home Meds] 04/06/21 04/08/21 History Exam Narrative Exam Narrative: Young white male lying in bed watching TV, alert and oriented x 3 HEENT: poor dentition, otherwise unremarkable Neck: tender w/ visible swelling along the left anterior neck and supraclavicular space w/ redness of the same. no tenderness over the right neck nor over the spinous processes Chest wall w/ erythema and edema over the left parasternal area and left pectoralis. he has a bandage over the prior site of needle aspiration. Lungs: clear Heart: RRR Abdomen: soft, nontender, no guarding or rebound tenderness. Extremities: multiple skin scabs over where he has picked at the skin but no purulent drainage Results Labs Result diagrams: 04/08/21 09:19 04/08/21 09:19 Labs: Laboratory Results - last 24 hr 04/08/21 04/08/21 04/08/21 08:24 09:19 09:19 WBC 23.53 H RBC 3.92 L Hgb 11.5 L Hct 34.9 L MCV 89.0 MCH 29.3 MCHC 33.0 RDW 12.3 Plt Count 316 MPV 8.8 Immature Gran % 0.7 Neutrophils % 82.7 Lymphocytes % 9.9 Monocytes % 6.3 Eosinophils % 0.1 Basophils % 0.3 Nucleated RBC % 0 Absolute Neutrophils 19.46 H Absolute Lymphocytes 2.33 Absolute Monocytes 1.48 H Absolute Eosinophils 0.02 Absolute Basophils 0.07 VBG Lactate 0.7 Sodium 136 Potassium 3.4 L Chloride 101 Carbon Dioxide 27.0 Anion Gap 8.0 BUN 8 Creatinine 0.8 Estimated GFR/1.73 m2 >= 60.00 Glucose 133 H Calcium 8.5 Magnesium 2.0 Total Bilirubin 0.4 AST 16 ALT 27 Alkaline Phosphatase 62 Troponin I < 0.05 Total Protein 7.4 Albumin 2.4 L COVID-19 Source SARS-CoV-2 (PCR) 04/08/21 09:25 WBC RBC Hgb Hct MCV MCH MCHC RDW Plt Count MPV Immature Gran % Neutrophils % Lymphocytes % Monocytes % Eosinophils % Basophils % Nucleated RBC % Absolute Neutrophils Absolute Lymphocytes Absolute Monocytes Absolute Eosinophils Absolute Basophils VBG Lactate Sodium Potassium Chloride Carbon Dioxide Anion Gap BUN Creatinine Estimated GFR/1.73 m2 Glucose Calcium Magnesium Total Bilirubin AST ALT Alkaline Phosphatase Troponin I Total Protein Albumin COVID-19 Source Nasal/Nares SARS-CoV-2 (PCR) Negative Last Vital Signs Temp 37.5 C 04/08/21 08:07 Pulse 78 04/08/21 10:31 Resp 19 04/08/21 10:31 BP 120/64 04/08/21 10:31 Pulse Ox 96 04/08/21 08:27
[2021-04-08] MEDS: Gadoterate meglumine 20 ML VIAL 18 ML IVP (12:02)
[2021-04-08] MEDS: Normal Saline Flush 10 ML SYR IVP ×4 (12:02→23:23)
[2021-04-08] MEDS: VANCOMYCIN/WATER (PEG) 2 GM/400 ML BAG IV ×2 (12:17→20:10)
[2021-04-08] MEDS: Pantoprazole 40 MG TABCR PO ×2 (14:38→20:10)
[2021-04-08] MEDS: Enoxaparin 40 MG/0.4 ML SYR SC (15:29)
--- NOTE | 2021-04-08 16:57 | W.SURGCON ---
Date of service: 04/08/21 Time of Service: 16:57 Assessment and Plan Assessment and plan (1) MRSA bacteremia: Status: Acute (2) Neck pain: Status: Acute (3) Staphylococcus aureus bacteremia: Status: Acute (4) Heroin abuse: Status: Acute (5) Abscess or cellulitis of chest wall: Status: Acute (6) IVDU (intravenous drug user): Status: Acute (7) Chest wall abscess: Status: Acute Assessment and plan: cont vanco supportive cares opiate w/drawl support will re-eval abscess in 24-48. if not improved re-attempt perc drainage vs open I&D History of Present Illness Narrative: Pt was admitted on Wednesday w/ abscess and bactremia. He left ama wednesday. He has MRSA in the abscess and 2/2 blood cultures. Patient returned to the ER after his condition continued to worsen. he is in significant pain across the pectoral muscle and the sternocleidomastoid muscle up to his neck on the left. MRI was obtained. I did personally review it. he has a 2.3 CM abscess underneath the pectoral muscle, but does not connect with the chest cavity. He adamantly denies injecting in his neck or injecting into the chest. He has a very old scar that is well-healed in the area of the jugular vein-left. He did not go home on antibiotic. He came back into the ED toay b/c of pain. At this point I think there is more morbidity in trying to do an I&D. We will wait 24 to 48 hours to see how he responds to IV antibiotic therapy. If he continues to have pain/swelling/high WBC, then we will reconsider incision and drainage Review of Systems All systems reviewed & are unremarkable except as noted in HPI and below Constitutional Constitutional: Reports body ache(s), Reports chills, Reports fever(s) and Reports weakness Comments: pain Neurologic Neurologic: Reports weakness [facility] Medical History Heroin abuse No significant past medical history Surgical History History of surgery on extremity right leg surgery; age 10 yr old Family History Sister [place] chorea Mother [place] chorea Social History Smoking/Tobacco Use Status: Current every day Tobacco Type: cigarettes Smoking packs per day: 1 Smoking cigarettes per day: 20.0 Smoking risk assessment performed?: Yes Alcohol Intake: never Drug use: Daily Substance use type: heroin Do you feel safe at home: Yes Do you feel safe in your relationship?: Yes Exam Chest Other: 1cm area of erythema over L pectoral muscle. Also edema and pain. No crepitus. There is edema and pain over SCM. There is no tenderness over the jugular. There is no signs of septic phlebitis. Resp Effort & Inspection: normal respiratory effort and able to speak in complete sentences Auscultation: clear to auscultation bilaterally Cardio Rate: regular rate Rhythm: regular rhythm GI Palpation: soft Auscultation: normal bowel sounds Extrem Other: mult scars/eschars over b/l forearms. as well as puncture sites on right arm. none of these represent a thrombophlebitis that requires excision. Results Last Vital Signs Temp 37.5 C 04/08/21 15:43 Pulse 84 04/08/21 15:43 Resp 18 04/08/21 15:43 BP 148/77 H 04/08/21 15:43 Pulse Ox 98 04/08/21 15:43 Labs Result diagrams: 04/08/21 09:19 04/08/21 09:19 Labs: Laboratory Results - last 24 hr 04/08/21 04/08/21 04/08/21 08:24 09:19 09:19 WBC 23.53 H RBC 3.92 L Hgb 11.5 L Hct 34.9 L MCV 89.0 MCH 29.3 MCHC 33.0 RDW 12.3 Plt Count 316 MPV 8.8 Immature Gran % 0.7 Neutrophils % 82.7 Lymphocytes % 9.9 Monocytes % 6.3 Eosinophils % 0.1 Basophils % 0.3 Nucleated RBC % 0 Absolute Neutrophils 19.46 H Absolute Lymphocytes 2.33 Absolute Monocytes 1.48 H Absolute Eosinophils 0.02 Absolute Basophils 0.07 VBG Lactate 0.7 Sodium 136 Potassium 3.4 L Chloride 101 Carbon Dioxide 27.0 Anion Gap 8.0 BUN 8 Creatinine 0.8 Estimated GFR/1.73 m2 >= 60.00 Glucose 133 H Calcium 8.5 Magnesium 2.0 Total Bilirubin 0.4 AST 16 ALT 27 Alkaline Phosphatase 62 Troponin I < 0.05 Total Protein 7.4 Albumin 2.4 L COVID-19 Source SARS-CoV-2 (PCR) 04/08/21 09:25 WBC RBC Hgb Hct MCV MCH MCHC RDW Plt Count MPV Immature Gran % Neutrophils % Lymphocytes % Monocytes % Eosinophils % Basophils % Nucleated RBC % Absolute Neutrophils Absolute Lymphocytes Absolute Monocytes Absolute Eosinophils Absolute Basophils VBG Lactate Sodium Potassium Chloride Carbon Dioxide Anion Gap BUN Creatinine Estimated GFR/1.73 m2 Glucose Calcium Magnesium Total Bilirubin AST ALT Alkaline Phosphatase Troponin I Total Protein Albumin COVID-19 Source Nasal/Nares SARS-CoV-2 (PCR) Negative
[2021-04-08] MEDS: Ketorolac 15 MG/ML VIAL IVP (23:22)
[2021-04-08] MEDS: Acetaminophen 325 MG TAB PO (23:23)
[2021-04-09 01:00] VITALS: TEMP 36.5
[2021-04-09] MEDS: VANCOMYCIN/WATER (PEG) 2 GM/400 ML BAG IV (03:54)
[2021-04-09] MEDS: Normal Saline Flush 10 ML SYR IVP ×2 (03:55→11:47)
[2021-04-09] MEDS: Ketorolac 15 MG/ML VIAL IVP ×2 (05:35→11:46)
[2021-04-09 07:23] LABS: Absolute Eosinophil Count 0.12 10^3/uL (0.0-0.7); Absolute Monocyte Count 1.42 10^3/uL (0.1-0.8); Basophils % 0.3; Eosinophils % 0.6; HCT 35.5 % (40.0-50.0); HGB 11.5 g/dL (13.5-17.5); Immature Grans % 0.5; Lymphocytes % 11.7; MCHC 32.4 % (32.0-36.0); MCV 89.4 fL (80-95); MPV 8.9 fL (8.0-11.0); Monocytes % 7.1; Neutrophils % 79.8; Nucleated RBC 0 %; Platelet Count 324 10^3/uL (130-400); RBC 3.97 10^6/uL (4.36-5.78); RDW 12.2 % (11.8-14.1); RDW-SD 40.4 fL; WBC 19.96 10^3/uL (4.4-10.8)
[2021-04-09 07:25] LABS: Absolute Basophil Count 0.06 10^3/uL (0.0-0.2); Absolute Lymphocyte Count 2.34 10^3/uL (1.2-3.4); Absolute Neutrophil Count 15.93 10^3/uL (1.2-6.7)
[2021-04-09 07:36] LABS: Anion Gap 6.9 mmol/L (3-11); BUN 10 mg/dL (7-18); C-Reactive Protein 13.61 mg/dL (0.0-0.3); CO2 26.1 mmol/L (21.0-32.0); CREATININE 0.8 mg/dL (0.70-1.30); Calcium 8.6 mg/dL (8.5-10.1); Chloride 107 mmol/L (98-107); Glucose 134 mg/dL (74-106); Potassium 3.8 mmol/L (3.5-5.1); Sodium 140 mmol/L (136-145)
[2021-04-09 07:37] VITALS: BP 133/88; PULSE 77; RESP 18; TEMP 36.1; O2SAT 97
[2021-04-09 07:37] LABS: Vancomycin, Peak 39.5 ug/mL (25.0-40.0)
[2021-04-09] MEDS: Pantoprazole 40 MG TABCR PO (07:41)
[2021-04-09] MEDS: Zinc Sulfate 220 MG TAB PO (09:20)
[2021-04-09] MEDS: Potassium Chloride 10 MEQ TABCR PO (09:20)
[2021-04-09] MEDS: Thiamine 100 MG TAB PO (09:20)
[2021-04-09] MEDS: Folic Acid 1 MG TAB PO (09:21)
[2021-04-09] MEDS: Multivitamin TAB 1 TAB PO (09:21)
--- NOTE | 2021-04-09 09:29 | PDOC.CMIN ---
- If Service Date Differs Date of service: 04/09/21 Time of Service: 09:29 Care Management Initial Assess REASON FOR HOSPITALIZATION:: MRSA Bacteremia PAST MEDICAL HISTORY/PAST SURGICAL HISTORY:: Medical History (Updated 04/06/21 @ 17:24 by Lei Benitez). Heroin abuse. No significant past medical history. Surgical History (Updated 04/06/21 @ 17:24 by Lei Benitez). History of surgery on extremity. right leg surgery; age 10 yr o PREVIOUS FUNCTIONAL STATUS/SOCIAL/FAMILY SUPPORTS:: Roel lives in a single family home in [place], [place] with his Beena and 3 of their children, ages 20, 11 and 7. 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 Roel is independent at baseline and does not receive any community services. CURRENT FUNCTIONAL STATUS:: Roel signed out AMA this afternoon before CM was able to meet with him. Roel was also admitted for the same problem on Wednesday04/06/21 and signed out AMA on Wednesday04/07/21. ADVANCE DIRECTIVES:: Roel has no advanced directives and is not interested. Has patient been provided with info about the portal/API?: Yes Did the patient sign up for the portal?: No CODE STATUS:: Full Code INSURANCE COVERAGE / FINANCIAL ISSUES:: Medicaid CURRENT HOME/COMMUNITY SERVICES/EQUIPMENT:: none PRIMARY CARE PHYSICIAN:: Regina Bowman POTENTIAL DISCHARGE NEEDS:: follow up with PCP PATIENT/FAMILY EDUCATION NEEDS:: Review of discharge instructions, medications, follow up plan, Ask Me Three TRANSPORTATION:: via private vehicle with family PLAN:: Roel left AMA this afternoon after his unvaccinated was not allowed to visit, per nursing staff.
[2021-04-09 12:00] LABS: Vancomycin, Trough 17.9 ug/mL (10.0-20.0)
[2021-04-09] MEDS: VANCOMYCIN/WATER (PEG) 1.75 GM/350 ML BAG IV (12:41)
--- NOTE | 2021-04-09 13:10 | PHA.REVIEW ---
Pharmacy Admission Review - Admission Clinical Review Chest wall abscess (Acute) MRSA bacteremia (Acute) Neck pain (Acute) Staphylococcus aureus bacteremia (Acute) Heroin abuse (Acute) Abscess or cellulitis of chest wall (Acute) IVDU (intravenous drug user) (Acute) No Known Allergies Allergy (Unverified 04/08/21 08:09) Resuscitation Status Full Code Height 5 ft 9 in Weight 86.636 kg - Renal Dosing Renal Dosing: BUN 10 mg/dL (7-18) 04/09/21 07:10 Creatinine 0.8 mg/dL (0.70-1.30) 04/09/21 07:10 Medications needing adjustments: Reviewed - Anticoagulation Anticoagulation: Hgb 11.5 g/dL (13.5-17.5) L 04/09/21 07:10 Hct 35.5 % (40.0-50.0) L 04/09/21 07:10 Plt Count 324 10^3/uL (130-400) 04/09/21 07:10 Creatinine 0.8 mg/dL (0.70-1.30) 04/09/21 07:10 DVT Prophylaxis: Reviewed Medications: Enoxaparin - Opiate Usage Evaluate Pain Scale/Pains Meds: N/A - Relevant Labs Sodium 140 mmol/L (136-145) 04/09/21 07:10 Potassium 3.8 mmol/L (3.5-5.1) 04/09/21 07:10 Chloride 107 mmol/L (98-107) 04/09/21 07:10 Magnesium 2.0 mg/dL (1.8-2.4) 04/08/21 09:19 C-Reactive Protein 13.61 mg/dL (0.0-0.3) H 04/09/21 07:10 - DM Control DM Control: Glucose 134 mg/dL (74-106) H 04/09/21 07:10 - Heart Failure/MN Heart Failure/MN: Troponin I < 0.05 ng/mL (<0.06) 04/08/21 09:19 - BP Control BP Control: Blood Pressure 133/88 If elevated: Reviewed - Qtc Review If Elevated: Reviewed List meds needing interventions: QTc 407 on admission - IV to PO Switch IV Medications: Reviewed - Home Meds Home Med List reviewed: Reviewed - Current meds Current Medication Order Review: Reviewed (adjusted vancomycin dose to 1.75gm q8h given today's peak and trough results which were higher than goal, will reevaluate trough tomorrow @ 1100)
--- NOTE | 2021-04-09 14:19 | W.PM.PROGNOT ---
Date of Service Date of service: 04/09/21 Time of Service: 14:19 Assessment and Plan Assessment and plan (1) MRSA bacteremia: Status: Acute Assessment and plan: Patient is advised that he ought to continue treatment through completion of his antibiotics. If he is not happy w/ this hospital policy then perhaps another hospital may better serve his needs. Either way he understands that he needs to complete 6 weeks of antibiotic therapy for a serious Staphylococcal infection and that he should continue treatment wherever he feels most comfortable. (2) Neck pain: Status: Acute (3) Staphylococcus aureus bacteremia: Status: Acute (4) Heroin abuse: Status: Acute (5) Abscess or cellulitis of chest wall: Status: Acute (6) IVDU (intravenous drug user): Status: Acute (7) Chest wall abscess: Status: Acute Subjective Subjective Interval history since last seen: Patient upset that his is not allowed to enter the hospital to visit him. He has been told that since she just got her first COVID-19 vaccination and she is not fully vaccinated, she would not be allow to enter the hospital. He indicated that she came into the hospital last time he was here couple days ago. I explained to him [facility] must be fully vaccinated. He used a few choice swear words at me and indicated that he was leaving the hospital against medical advice. I explained to him that with his current bacterial blood stream and chest wall infection that if this is not properly treated then he could from the infection. He indicated that he is not afraid to . I indicated to him that he can not just keep leaving and reappearing when he feels like it but needs to remain in the hospital to complete a full course of iv antibiotics. He then got dressed and left against medical adivice. I feel that he has the capacitance to understand the consequences of his decision. Objective Last Vital Signs Temp 36.1 C L 04/09/21 07:37 Pulse 77 04/09/21 07:37 Resp 18 04/09/21 07:37 BP 133/88 04/09/21 07:37 Pulse Ox 97 04/09/21 07:37 Laboratory Results - last 24 hr 04/09/21 04/09/21 04/09/21 07:10 07:10 07:10 WBC 19.96 H RBC 3.97 L Hgb 11.5 L Hct 35.5 L MCV 89.4 MCH 29.0 MCHC 32.4 RDW 12.2 Plt Count 324 MPV 8.9 Immature Gran % 0.5 Neutrophils % 79.8 Lymphocytes % 11.7 Monocytes % 7.1 Eosinophils % 0.6 Basophils % 0.3 Nucleated RBC % 0 Absolute Neutrophils 15.93 H Absolute Lymphocytes 2.34 Absolute Monocytes 1.42 H Absolute Eosinophils 0.12 Absolute Basophils 0.06 Sodium 140 Potassium 3.8 Chloride 107 Carbon Dioxide 26.1 Anion Gap 6.9 BUN 10 Creatinine 0.8 Estimated GFR/1.73 m2 >= 60.00 Glucose 134 H Calcium 8.6 C-Reactive Protein 13.61 H Vancomycin Peak 39.5 Vancomycin Trough 04/09/21 11:04 WBC RBC Hgb Hct MCV MCH MCHC RDW Plt Count MPV Immature Gran % Neutrophils % Lymphocytes % Monocytes % Eosinophils % Basophils % Nucleated RBC % Absolute Neutrophils Absolute Lymphocytes Absolute Monocytes Absolute Eosinophils Absolute Basophils Sodium Potassium Chloride Carbon Dioxide Anion Gap BUN Creatinine Estimated GFR/1.73 m2 Glucose Calcium C-Reactive Protein Vancomycin Peak Vancomycin Trough 17.9
--- NOTE | 2021-04-09 15:09 | W.PM.DS.N ---
Date of service: 04/09/21 Time of Service: 15:09 DS: Diagnosis Discharge Diagnosis (1) MRSA bacteremia: Status: Acute (2) Neck pain: Status: Acute (3) Staphylococcus aureus bacteremia: Status: Acute (4) Heroin abuse: Status: Acute (5) Abscess or cellulitis of chest wall: Status: Acute (6) IVDU (intravenous drug user): Status: Acute (7) Chest wall abscess: Status: Acute Discharge Plan Disposition Patient Disposition: AGAINST MEDICAL ADVICE Condition: Stable Discharge Details Reason For Visit: MRSA Bacteremia Admit Date/Time: 04/08/21 10:43 Admit Provider: Lei Benitez Attending Provider: Lei Benitez Primary Care Provider: Regina Bowman Hospital Course Hospital Course: Patient was recently admitted for MRSA chest wall infection involving his left pectoralis muscle and was found to have MRSA bacteremia. he left against medical advice and later returned the next morning to be readmitted this admission. Patient was restarted on Vancomomycin, MRI of the chest confirmed a small abscess of the left pectoralis muscle (2.3 cm) and some inflammatory involvement of his left sternocleidomastoid muscle. Patient's pain was treated w/ ketorolac and tylenol. Surgical consult was obtained w/ Dr. Noyola. She decided that the best initial course of management was conservative treatment w/ parenteral Vancomycin and if the abscess did not resolve then proceed w/ surgery. Unfortunately the patient became angry when his was not allowed into the hospital d/t her vaccination status for COVID-19 (she just received her first vaccine injection). The patient was advised and understood the seriousness and potential lifethreatening nature of his methicillin resistant Staphylococcal aureus infection but he chose to leave against medical advice. He was advised that irregardless of how he felt about the policy of the hospital, he needs antibiotics for 6 weeks and that if he is not happy w/ this hospital policy then perhaps he would find another hospital who's policy is more agreeable to him. He understand that this infection should not go untreated. In spite of this he got himself dressed and walked out before further discharge instructions or arrangements could be made for follow up care to ensure that his infection is properly treated. Home Meds and New Rx's Prescriptions: No Action No Known Home Meds RF: 0 Discharge Data Discharge Date/Time-TO BE ENTERED AT DEPARTURE: 04/09/21 14:59 DS: Summary Time Spent with Patient providing and/or coordinating discharge services: Less than 30 minutes Status at Discharge Functional status at discharge: independent ambulation Overall status at discharge: patient is not back to baseline Mental Status: mental status grossly normal Speech and Movement: speech and movement normal Mood: angry Affect: labile affect Exam Psych Mental Status: mental status grossly normal Speech and Movement: speech and movement normal Mood: angry Affect: labile affect DS: Data Vitals/I&O Vitals and I&O: Vital Signs Temperature 36.1 C L 04/09/21 07:37 Temperature Source Tympanic 04/09/21 07:37 Pulse 77 04/09/21 07:37 Pulse Rhythm Regular 04/09/21 07:30 Pulse 79 04/08/21 10:31 Respiratory Rate 18 04/09/21 07:37 Respiratory Effort Non-Labored 04/09/21 07:30 Respiratory Depth Normal 04/09/21 07:30 Respiratory Pattern Normal 04/09/21 07:30 Blood Pressure 133/88 04/09/21 07:37 Blood Pressure Mean 76 04/08/21 10:31 Blood Pressure Position Sitting 04/08/21 08:07 Pulse Oximetry 97 04/09/21 07:37 Oxygen Delivery Method Room Air 04/09/21 07:37 Oxygen Flow Rate 0 04/09/21 07:37 Pain Level 9 04/09/21 11:46 Comment 04/08/21 23:32 Intake & Output 04/08/21 04/09/21 04/09/21 23:59 11:59 23:59 Intake Total 1303.333 / 2403.333 1190 / 1190 Balance 1303.333 / 2403.333 1190 / 1190 Weight 86.636 kg Intake: IV 753.333 / 1853.333 Oral 550 / 550 1190 / 1190 Other: Urine Color Yellow Yellow Urine Appearance Clear Clear Comment Pt reports voided in toilet with yellow color urine. Urine unmeasured. Unmeasured amount of urine. Voiding Methods Toilet Toilet Data Completed and Pending Labs on day of discharge: Labs from last 24 hours 04/09/21 04/09/21 04/09/21 11:04 07:10 07:10 WBC 19.96 H RBC 3.97 L Hgb 11.5 L Hct 35.5 L MCV 89.4 MCH 29.0 MCHC 32.4 RDW 12.2 Plt Count 324 MPV 8.9 Immature Gran % 0.5 Neutrophils % 79.8 Lymphocytes % 11.7 Monocytes % 7.1 Eosinophils % 0.6 Basophils % 0.3 Nucleated RBC % 0 Absolute Neutrophils 15.93 H Absolute Lymphocytes 2.34 Absolute Monocytes 1.42 H Absolute Eosinophils 0.12 Absolute Basophils 0.06 Sodium 140 Potassium 3.8 Chloride 107 Carbon Dioxide 26.1 Anion Gap 6.9 BUN 10 Creatinine 0.8 Estimated GFR/1.73 m2 >= 60.00 Glucose 134 H Calcium 8.6 C-Reactive Protein 13.61 H Vancomycin Peak Vancomycin Trough 17.9 04/09/21 07:10 WBC RBC Hgb Hct MCV MCH MCHC RDW Plt Count MPV Immature Gran % Neutrophils % Lymphocytes % Monocytes % Eosinophils % Basophils % Nucleated RBC % Absolute Neutrophils Absolute Lymphocytes Absolute Monocytes Absolute Eosinophils Absolute Basophils Sodium Potassium Chloride Carbon Dioxide Anion Gap BUN Creatinine Estimated GFR/1.73 m2 Glucose Calcium C-Reactive Protein Vancomycin Peak 39.5 Vancomycin Trough 04/09/21 11:04 Blood Blood Culture - Pending 04/09/21 11:24 Blood Blood Culture - Pending Preliminary micro results at discharge 04/09/21 11:04 Blood Culture - Pending Blood 04/09/21 11:24 Blood Culture - Pending Blood 04/08/21 09:17 Blood Culture - Preliminary Blood Staph aureus, MRSA 04/08/21 09:05 Blood Culture - Preliminary Blood Gram Positive Cocci PFSH Medical History Heroin abuse No significant past medical history Surgical History History of surgery on extremity right leg surgery; age 10 yr old Family History Sister [place] chorea Mother Douglas chorea Social History Smoking/Tobacco Use Status: Current every day Tobacco Type: cigarettes Smoking packs per day: 1 Smoking cigarettes per day: 20.0 Smoking risk assessment performed?: Yes Alcohol Intake: never Drug use: Daily Substance use type: heroin Do you feel safe at home: Yes Do you feel safe in your relationship?: Yes
== END 2021-04-09 14:59 | disposition left against medical advice (07) | DRG 603 ==
LOC: ER 11:13 → MS 12:32
PROVIDERS: Admitting Provider Internal Medicine; Emergency Provider Physician Assistant; PCP Physician Assistant Medical; Visit Provider Internal Medicine
DX: L02.213 Cutaneous abscess of chest wall (principal); R78.81 Bacteremia; L03.313 Cellulitis of chest wall; F11.10 Opioid abuse, uncomplicated; B95.62 Methicillin resistant Staphylococcus aureus infection as the cause of diseases classified elsewhere; M54.2 Cervicalgia; Z20.822 Contact with and (suspected) exposure to COVID-19; F17.210 Nicotine dependence, cigarettes, uncomplicated
CPT/HCPCS: 36415; 71552; 80048; 80053; 87040; 87077; 87635; 93005; 96361; 96365; 96375; 99285; J1650; 80202; 83605; 83735; 84484; 85025; 86140; 87186; 93010; 99222; 99238; J0131; J1885

== ENCOUNTER 2021-06-19 22:23 | Inpatient (IN) | payer MEDICAID, SELFPAY ==
--- NOTE | 2021-06-19 22:30 | DI.CT_ITS ---
Exam(s) CT NECK CHEST W EXAM: CT NECK CHEST W CLINICAL HISTORY: Abscess Left neck and chest TECHNIQUE: COMPARISON: CT RENAL COLIC WO CONTRAST from 12/08/[address] CHEST W from 04/06/2021 MR MR CHEST WO/W from 04/08/2021 FINDINGS: CT SOFT TISSUES NECK WITH IV CONTRAST: Nasopharynx: Tissues are symmetrical. No mass. Oropharynx: Uvula is midline. No obvious mass. Hypopharynx: No significant findings in the epiglottis and valleculae. Aryepiglottic folds appear un remarkable. Vocal cords: Unremarkable. Subglottic airway appears unremarkable. Thyroid gland: Unremarkable Salivary gland: The parotid and submandibular glands appear unremarkable. Lymph nodes: Mildly enlarged lymph nodes. No gross lymphadenopathy. Lower neck-supraclavicular region: See chest CT scan report below. CT CHEST WITH IV CONTRAST: Lungs: Small nodular infiltrates in both lung bases now evident. No pleural effusions. Mediastinum: No hilar adenopathy. Cardiac: Heart size normal. No pericardial effusion. Caliber thoracic aorta is within normal limits . Musculoskeletal: There has been significant progression of the anterior chest wall infection when compared to the CT s can of 04/06/2021. Although there is no obvious drainable abscess, there is significant increase in size of phlegmonous-type infectious process involving the lower aspect of the left sternocleidomastoi d muscle which is significantly expanded and also the pectoralis muscle and there is now lytic destru ction of the medial aspect of the left clavicle as well as involvement of the sternoclavicular joint. Also some involvement of the manubrial side of the left sternoclavicular joint. There does not jimena ear to be obvious involvement of the nearby left 1st rib. There is some soft tissue swelling in the mediastinum posterior to the lytic destruction of the clavicle. There does not appear to be obvious thrombosis the adjacent innominate vein. IMPRESSION: 1. Compared to 04/06/2021 there has been significant progression the inflammatory-infectious process involving the anterior chest wall, as described above. There is now lytic destruction medial aspect of the clavicle and with involvement of the ipsilateral sternoclavicular joint and manubrium. Findin gs are consistent with osteomyelitis of the structures and septic involvement of the left sternoclavi cular joint. Phlegmonous process anterior to this measures approximately 3 x 2 x 4 cm although there does not appear to be a truly drainable abscess. Thoracic surgery consultation recommended. 2. There are mild increased markings evident in lung bases, more so than previous as well as small no dular infiltrates in both lung bases. Most probably infectious as these have developed since 021. There are no pleural effusions.
[2021-06-19 22:31] VITALS: BP 144/74; PULSE 83; RESP 18; TEMP 36.6; O2SAT 99
--- NOTE | 2021-06-19 22:46 | ED.GENADUL_ITS ---
Discharge Plan Disposition Patient Disposition: [facility] INPATIENT Condition: Fair Discharge Details Clinical Impression: Osteomyelitis of clavicle, IVDU (intravenous drug user), Phlegmonous cellulitis Admit Date/Time: 06/20/21 01:16 Admit Provider: Lei Benitez Attending Provider: Lei Benitez Primary Care Provider: Regina Bowman ED Provider: Yoseph Westfall Discharge Data Discharge Date/Time-TO BE ENTERED AT DEPARTURE: 06/20/21 02:33 Medical Decision Making <Kaya Hopson - Last Filed: 06/20/21 16:13> 41-year-old male with a history of IV drug use presents to the ER with a chief complaint of left-sided neck and chest abscess which he was admitted for in April. He reports that he took the course of oral antibiotics and the abscess went away and he reports that it is returned over the last month. He denies any fever or chills. He does endorse continued use of IV drugs including heroin. He does have some pain with lifting his arm and turning his neck. Abscess is erythemic, indurated, is hard to palpation and erythema extends down to the nipple line on the left side of his chest. Blood cultures x2, labs ordered including CBC, CMP, Lactate Currently handed off to ER attending Dr. Mookie Westfall MD pending CT results and disposition. labs are noted below. Liter of normal saline and vancomycin 20 mg/kg ordered for presumed MRSA. Lab Data Lab results reviewed: Yes I reviewed the patient's lab results. Lab results narrative: 06/19/21 23:35 Blood Blood Culture - Pending 06/19/21 23:23 Blood Blood Culture - Pending Laboratory Tests Range/Units 06/19/21 06/19/21 06/19/21 22:50 23:23 23:23 WBC (4.4-10.8) 10^3/uL 11.59 H RBC (4.36-5.78) 10^6/uL 4.64 Hgb (13.5-17.5) g/dL 12.7 L Hct (40.0-50.0) % 40.3 MCV (80-95) fL 86.9 MCH (27.0-33.0) pg 27.4 MCHC (32.0-36.0) % 31.5 L RDW (11.8-14.1) % 13.0 Plt Count (130-400) 10^3/uL 367 MPV (8.0-11.0) fL 9.1 Immature Gran % 0.4 Neutrophils % 71.4 Lymphocytes % 21.0 Monocytes % 5.2 Eosinophils % 1.6 Basophils % 0.4 Nucleated RBC % % 0 Absolute Neutrophils (1.2-6.7) 10^3/uL 8.28 H Absolute Lymphocytes (1.2-3.4) 10^3/uL 2.43 Absolute Monocytes (0.1-0.8) 10^3/uL 0.60 Absolute Eosinophils (0.0-0.7) 10^3/uL 0.19 Absolute Basophils (0.0-0.2) 10^3/uL 0.05 VBG Lactate (0.6-1.4) mmol/L Sodium (136-145) mmol/L 136 Potassium (3.5-5.1) mmol/L 3.5 Chloride (98-107) mmol/L 102 Carbon Dioxide (21.0-32.0) mmol/L 25.0 Anion Gap (3-11) mmol/L 9.0 BUN (7-18) mg/dL 19 H Creatinine (0.70-1.30) mg/dL 1.0 Estimated GFR/1.73 m2 (mL/min/1.73m2) >= 60.00 Glucose (74-106) mg/dL 135 H Calcium (8.5-10.1) mg/dL 8.7 Magnesium (1.8-2.4) mg/dL 2.3 Total Bilirubin (0.2-1.0) mg/dL 0.2 AST (15-37) U/L 24 ALT (16-63) U/L 37 Alkaline Phosphatase (46-116) U/L 89 Total Protein (6.4-8.2) g/dL 9.1 H Albumin (3.4-5.0) g/dL 3.0 L COVID-19 Source Nasal/Nares SARS-CoV-2 (PCR) (Negative) Negative Range/Units 06/19/21 23:55 WBC (4.4-10.8) 10^3/uL RBC (4.36-5.78) 10^6/uL Hgb (13.5-17.5) g/dL Hct (40.0-50.0) % MCV (80-95) fL MCH (27.0-33.0) pg MCHC (32.0-36.0) % RDW (11.8-14.1) % Plt Count (130-400) 10^3/uL MPV (8.0-11.0) fL Immature Gran % Neutrophils % Lymphocytes % Monocytes % Eosinophils % Basophils % Nucleated RBC % % Absolute Neutrophils (1.2-6.7) 10^3/uL Absolute Lymphocytes (1.2-3.4) 10^3/uL Absolute Monocytes (0.1-0.8) 10^3/uL Absolute Eosinophils (0.0-0.7) 10^3/uL Absolute Basophils (0.0-0.2) 10^3/uL VBG Lactate (0.6-1.4) mmol/L 1.1 Sodium (136-145) mmol/L Potassium (3.5-5.1) mmol/L Chloride (98-107) mmol/L Carbon Dioxide (21.0-32.0) mmol/L Anion Gap (3-11) mmol/L BUN (7-18) mg/dL Creatinine (0.70-1.30) mg/dL Estimated GFR/1.73 m2 (mL/min/1.73m2) Glucose (74-106) mg/dL Calcium (8.5-10.1) mg/dL Magnesium (1.8-2.4) mg/dL Total Bilirubin (0.2-1.0) mg/dL AST (15-37) U/L ALT (16-63) U/L Alkaline Phosphatase (46-116) U/L Total Protein (6.4-8.2) g/dL Albumin (3.4-5.0) g/dL COVID-19 Source SARS-CoV-2 (PCR) (Negative) <Yoseph Westfall MD - Last Filed: 06/20/21 01:46> Patient signed out to me from DOYEL Hopson to follow-up on CT scan. Please see her note for initial presentation, physical and evaluation. Laboratory studies unremarkable. IV vancomycin ordered. CT scan returns with no chest wall abscess, however, there is chest wall phlegmon in association with left medial clavicular and manubrial osteomyelitis. Case discussed with orthopedics, Dr. Parr. Initial management is typically with IV antibiotics. No urgent need for OR in regards to osteomyelitis. Chest wall findings should be referred to general surgery. For tonight patient can be admitted to medicine for antibiotic, management, consult in the morning. Case discussed with hospitalist, Dr. Benitez. Patient accepted to hospitalist service. Patient aware of findings and need for admission and consultation. Lab Data Lab results reviewed: Yes I reviewed the patient's lab results. HPI <Kaya Ogdenton - Last Filed: 06/20/21 16:13> General Mode of arrival: ambulatory . Date/Time Provider Initiated Documentation: 06/19/21 22:25 . Limitations to Documentation: no limitations . Information obtained by: patient and RN notes reviewed . HPI Narrative: 41-year-old male with a history of IV drug use presents to the ER with a chief complaint of left-sided neck and chest abscess which she was admitted for in April. He reports that he took the course of oral antibiotics and the abscess went away and he reports that it is returned over the last month. He denies any fever or chills. He does endorse continued use of IV drugs including heroin. He does have some pain with lifting his arm and turning his neck. Abscess is erythemic, indurated, is hard to palpation and erythema extends down to the nipple line on the left side of his chest. Related Data Home Medications Medication Instructions Recorded Confirmed Unknown [No Known Home Meds] 04/06/21 06/19/21 Allergies Allergy/AdvReac Type Severity Reaction Status Date / Time No Known Allergies Allergy Unverified 06/19/21 22:36 General Stated Complaint: GenMedical EVGENY: 2 Review of Systems <Kaya Hopson - Last Filed: 06/20/21 16:13> All systems reviewed & are unremarkable except as noted in HPI and below Constitutional Constitutional: Denies fever(s) ENT Ears, Nose, Mouth, and Throat: Reports neck pain Musculoskeletal Musculoskeletal: Reports neck pain Integumentary/Breasts Skin/Breast: Reports as per HPI, Reports furuncle and Reports erythema PFSH <Kaya Ogdenton Last Filed: 06/20/21 16:13> All Active Problems Osteomyelitis of clavicle (Acute) Phlegmonous cellulitis (Acute) Neck pain (Acute) Heroin abuse (Acute) IVDU (intravenous drug user) (Acute) Medical History (Updated 06/20/21 @ 08:24 by Lei Benitez) Abscess or cellulitis of chest wall Chest wall abscess MRSA bacteremia No significant past medical history Staphylococcus aureus bacteremia Surgical History History of surgery on extremity right leg surgery; age 10 yr old Family History Sister Douglas chorea Mother Douglas chorea Social History (Updated 06/20/21 @ 08:25 by Lei Benitez) Smoking/Tobacco Use Status: Current every day Tobacco Type: cigarettes Smoking packs per day: 1.5 Smoking cigarettes per day: 30.0 Smoking risk assessment performed?: Yes Alcohol Intake: former Drug use: Daily Substance use type: crack/cocaine and heroin Details: States he is down to a bag a day. Occasionally snorts cocaine Do you feel safe at home: Yes Do you feel safe in your relationship?: Yes Exam <Kaya Hopson - Last Filed: 06/20/21 16:13> Narrative Exam Narrative: Constitutional: Alert and oriented x3. Appears stated age. Normal body habitus. Head: Normocephalic, no trauma. Eyes: Pupils PERRL, Red reflex noted, EOM's intact. Eyelids symmetrical without lesions, discharge, or swelling. ENT: Bilateral TM's WNL, External ear normal to inspection, no mastoid TTP, swelling, or erythema, Nasal turbinates WNL, no nasal discharge. Normal dentition, Posterior pharynx WNL, no exudate. Chest: See chest exam below. RRR, Normal S1, S2, distal pulses intact. Resp: Lungs clear to auscultation bilaterally, no wheezes, rales, or rhonchi. Abdomen: Soft, non-distended, Normoactive bowel sounds all 4 quads. Musculoskeletal: Normal gait, 5/5 strength to all four extremities. Skin: See chest exam noted below. Patient does have track [place] noted to his right cubital fossa, some excoriations noted to his left forearm. Capillary refill less than 2 sec. Neurologic: Cranial nerves II-XII intact. Alert and oriented x 3. Motor: No deficits noted. Sensory: Intact bilaterally all 4 extremities. Reflexes: DTR's intact bilaterally.. Hematologic/Lymphatic: No ecchymosis, no lymphadenopathy. Chest Chest: abnormal inspection of the chest swelling and erythema and mass left 1st rib firm Chest/axillae images: 1. Abscess, Approx 7cm x 7cm in diameter, indurated, hard to palpation 2. Erythema and warmth Resp Effort & Inspection: normal respiratory effort and able to speak in complete sentences Auscultation: clear to auscultation bilaterally Course <Kaya Hopson - Last Filed: 06/20/21 16:13> Vital Signs Vital signs: Vital Signs Temperature 36.6 C 06/19/21 22:31 Pulse 83 06/19/21 22:31 Respiratory Rate 18 06/19/21 22:31 Blood Pressure 144/74 H 06/19/21 22:31 Pulse Oximetry 99 06/19/21 22:31 Temperature 36.6 C 06/19/21 22:31 Temperature Source Skin 06/19/21 22:31 Pulse 83 06/19/21 22:31 Respiratory Rate 18 06/19/21 22:31 Respiratory Effort Non-Labored 06/19/21 22:37 Blood Pressure 144/74 H 06/19/21 22:31 Blood Pressure Position Sitting 06/19/21 22:31 Pulse Oximetry 99 06/19/21 22:31 Oxygen Delivery Method Room Air 06/19/21 22:31 Oxygen Flow Rate 0 06/19/21 22:31 Pain Level 5 06/19/21 22:31 Lab/Test Results Lab/Test Results: 06/19/21 22:43 Blood Blood Culture - Pending 06/19/21 22:43 Blood Blood Culture - Pending Procedures <Kaya Hopson - Last Filed: 06/20/21 16:13> Phlebotomy Reason for Blood Draw by MD: RN/lab unable Obtained Bloods via: peripheral vein stick Estimated cc's Blood Obtained: 15 Additional Comments: US Guided 18 ga IV placed to Left Upper Brachial Vein, [place] drawn and 2nd set of blood cultures obtained Sign Out <Kaya Hopson - Last Filed: 06/20/21 16:13> Sign Out Data: Sign Out Comment: IVDU, Left sided chest wall abscess and cellulitis. Pending CT Neck and Chest results and disposition. Concern for Chest Wall abscess and possible osteomyelitis? Last updated by Kaya Hopson at 06/20/21 00:17
[2021-06-19 23:29] LABS: Source Nasal/Nares
[2021-06-19 23:29] LABS: Abs Immature Grans 0.05 10^3/uL (0.0-0.06); Absolute Basophil Count 0.05 10^3/uL (0.0-0.2); Absolute Lymphocyte Count 2.43 10^3/uL (1.2-3.4); Absolute Neutrophil Count 8.28 10^3/uL (1.2-6.7); Basophils % 0.4; Eosinophils % 1.6; HCT 40.3 % (40.0-50.0); HGB 12.7 g/dL (13.5-17.5); Immature Grans % 0.4; MCH 27.4 pg (27.0-33.0); MCHC 31.5 % (32.0-36.0); MCV 86.9 fL (80-95); MPV 9.1 fL (8.0-11.0); Monocytes % 5.2; Neutrophils % 71.4; Nucleated RBC 0 %; Platelet Count 367 10^3/uL (130-400); RBC 4.64 10^6/uL (4.36-5.78); RDW-SD 41.2 fL; WBC 11.59 10^3/uL (4.4-10.8)
[2021-06-19 23:33] LABS: Absolute Eosinophil Count 0.19 10^3/uL (0.0-0.7)
[2021-06-19] MEDS: Omnipaque 350 MG/ML 100 ML BTL IJ (23:42)
[2021-06-19 23:43] LABS: ALT 37 U/L (16-63); AST 24 U/L (15-37); Alkaline Phosphatase 89 U/L (46-116); BUN 19 mg/dL (7-18); Bilirubin, Total 0.2 mg/dL (0.2-1.0); Calcium 8.7 mg/dL (8.5-10.1); Chloride 102 mmol/L (98-107); Glucose 135 mg/dL (74-106); Magnesium 2.3 mg/dL (1.8-2.4); Potassium 3.5 mmol/L (3.5-5.1); Sodium 136 mmol/L (136-145); Total Protein 9.1 g/dL (6.4-8.2)
[2021-06-19 23:59] LABS: Lactate 1.1 mmol/L (0.6-1.4)
--- NOTE | 2021-06-20 | DI.MRI_ITS ---
Exam(s) MR CHEST WO EXAM: MR CHEST WO CLINICAL HISTORY: neck pain; MRSA osteomyelitis left clavicle TECHNIQUE: Multiplanar multisequence MRI of the Chest was performed. Apparently IV contrast sequences were not obtained as this patient apparently aborted examination edil or to contrast injection. Some sequences are also degraded by motion artifact. Apparently was diffi cult for this patient to remain still during this MRI examination. COMPARISON: Recent CT scans reviewed FINDINGS: There is osteomyelitis of the medial aspect of the left clavicle with lytic destruction and there inv olvement of the left sterno clavicular joint and there is also signal abnormality in left side of the manubrium sternum which is most probably also consistent with osteomyelitis. There is a large surro unding phlegmonous area in the region around this joint and extending into the lower neck. Anteriorl y there is a fluid collection measuring 3.9 cm craniocaudal x 3.5 cm AP x 2.9 cm wide, this intimatel y associated with the left sternoclavicular joint and most probably an abscess. The signal abnormality also extends into the anterior left side of the mediastinum anterior to the in nominate vein. IMPRESSION: 1. Less than optimal study due to lack of IV contrast (see above reason). However, findings are cons istent with septic arthritis of the left sternoclavicular joint and destructive osteomyelitis of the medial aspect of the left clavicle. Signal abnormality in the adjacent left side of the manubrium st ernum is most probably also consistent with osteomyelitis of the sternum at this level. 2. Although it is somewhat difficult to determine abscess from phlegmonous involvement without IV con trast, there does appear to be a fluid collection as described above anterior to this region which is most probably purulent/abcess. 3. There is also involvement of the anterior mediastinal fat the hind the sternoclavicular joint and left side of the sternum just anterior to the innominate vein. Thoracic surgery consultation recommended. DATA REPOSITORY:
--- NOTE | 2021-06-20 | DI.MRI_ITS ---
Exam(s) MR CERVICAL SPINE WO EXAM: MR CERVICAL SPINE WO CLINICAL HISTORY: neck pain; MRSA osteomyelitis left clavicle TECHNIQUE: Multiplanar multisequence MRI of the cervical spine was performed without intravenous con trast. I am informed that the patient was not able nor willing to remain on the MRI table for contra st infused sequences COMPARISON: No exams were available for comparison FINDINGS: CERVICOMEDULLARY JUNCTION: Intact with no evidence of cerebellar tonsillar ectopia. No obvious abnor mality of the odontoid process. No evidence of Chiari 1 malformation. Incidentally noted is fluid in the sphenoid sinuses. CERVICAL SPINAL CORD: There is no abnormal signal in the cervical spinal cord and no evidence of foca l cord atrophy nor focal cord swelling. No evidence of epidural abscess. However, there is soft tis mervin edema signal in the left side of the neck-left supraclavicular region and extending up posterior to the left sternocleidomastoid muscle and this is most probably continuous with the infectious proce ss in the anterior chest wall described on the other scan dictation. This is also associated with de structive infectious process in the medial aspect of the left clavicle and sternoclavicular joint. OSSEOUS:There are no cervical fractures evident. No significant osseous lesions in the cervical vert ebrae. No evidence of vertebral body osteomyelitis. INDIVIDUAL LEVELS: C2-3: No disc herniation nor central canal stenosis. No foraminal stenosis. No facet arthropathy. C3-4: No disc herniation nor central canal stenosis.No facet arthropathy. No foraminal stenosis. C4-5: No disc herniation nor central canal stenosis.No facet arthropathy. No foraminal stenosis C5-6: No disc herniation or canal stenosis. No facet arthropathy. No foraminal stenosis C6-7: Normal disc height and signal. Mild central subligamentous annular bulging. No prominent disc herniation. No central canal stenosis. No foraminal stenosis. No facet arthropathy C7-T1: No disc herniation nor central canal stenosis. No facet arthropathy.No foraminal stenosis. IMPRESSION: 1. No evidence of significant disc herniation nor spinal canal stenosis nor evidence of foraminal reema nosis. Also no evidence of epidural abscess on this noninfused study. 2. On the upper aspect of the field of view there is inflammatory process evident in the region of me dial left clavicle and supraclavicular region destruction of the medial aspect of the left clavicle a nd sternal clavicular joint/osteomyelitis and septic arthritis at this level. There is also abundant surrounding soft tissue swelling. Unfortunately this patient refused IV contrast which makes it dif ficult to delineate between phlegmonous involvement versus true abscess. 3. Fluid noted in the sphenoid sinus incidentally noted. DATA REPOSITORY:
[2021-06-20 00:06] LABS: COVID-19 PCR Negative (Negative)
[2021-06-20] MEDS: Normal Saline 1,000 ML 1000 ML IV (00:15)
--- NOTE | 2021-06-20 00:29 | DI.VRAD_ITS ---
PROCEDURE INFORMATION: Exam: CT Neck With Contrast Exam date and time: 06/19/2021 22:46 Age: 41 years old Clinical indication: Other: Abscess left neck and chest; Patient HX: Ivdu TECHNIQUE: Imaging protocol: Computed tomography images of the neck with contrast. 3D rendering (Not supervised by radiologist): MIP and/or 3D reconstructed images were created by the technologist. COMPARISON: MR CERVICAL SPINE WO 04/07/2021 16:38 FINDINGS: Paranasal sinuses: Scattered mild mucosal thickening in the paranasal sinuses. Nasopharynx: Unremarkable. Dental: Severe periodontal disease. Oropharynx: No significant tonsillar enlargement. Hypopharynx: Unremarkable. Larynx: Normal epiglottis. Retropharyngeal space: Unremarkable. Submandibular/Parotid glands: Glands are normal in size. Thyroid: No enlarged or calcified nodules. Lymph nodes: Jugulodigastric lymph nodes mildly prominent bilaterally. Mildly prominent submandibular nodes as well probably relating to periodontal disease. Trachea: Visualized trachea is unremarkable. Lungs: Unremarkable as visualized. Bones/joints: No acute fracture. Soft tissues: Minimal edema left supraclavicular space. Please see CT thorax for discussion. IMPRESSION: Minor edema extends into the left supraclavicular space, please see CT thorax for discussion below. No abscess in the neck. PROCEDURE INFORMATION: Exam: CT Chest With Contrast; Diagnostic Exam date and time: 06/19/2021 22:46 Age: 41 years old Clinical indication: Other: Abscess left neck and chest; Patient HX: Ivdu TECHNIQUE: Imaging protocol: Diagnostic computed tomography of the chest with contrast. 3D rendering (Not supervised by radiologist): MIP and/or 3D reconstructed images were created by the technologist. COMPARISON: MR CERVICAL SPINE WO 04/07/2021 16:38 FINDINGS: Lungs: Centrilobular predominant nodules, right middle lobe, right lower lobe, left lower lobe. Pleural spaces: No pneumothorax. No pleural effusion. Heart: No cardiomegaly. No pericardial effusion. Aorta: No aortic aneurysm. Lymph nodes: No enlarged lymph nodes. Bones/joints: Complex partially enhancing intermediate density approximately 3 x 2 x 4 cm region anterior to the left medial clavicle and clavicular manubrial junction. There is no fantasma drainable appearing abscess at this location. This probably represents a large amount of phlegmon. Minimal edema extends into the left supraclavicular space with no additional abscess in the neck. Edema posterior to left clavicular head as well again with no fantasma abscess at this location. Eroded medial left clavicle. The manubrium demonstrates faint erosion cephalad aspect the junction with the clavicle. No displaced fracture. Mild edema left thoracic inlet. No abscess. Exaggerated thoracic kyphosis. The thoracic spine appears intact. No displaced fracture. Soft tissues: No suspicious lesions. IMPRESSION: 1. Left medial clavicular and manubrial osteomyelitis. Presumed infection of the joint at this location. 3 x 2 x 4 cm phlegmon anterior to this location. 2. Mild perihilar inhalational or infectious endobronchial disease, could be pneumonia or pneumonitis depending on the scenario, could be aspiration. 3. Incidental findings as described. Dictated and Authenticated by: Baylee Montenegro MD. Ordering:JOHN Kirkpatrick MD
[2021-06-20 00:37] LABS: Bilirubin Negative (Negative); Blood Negative (Negative); Clarity Clear (Clear); Glucose Negative (Negative); Ketones Negative (Negative); Leukocyte Esterase Negative (Negative); Nitrite Negative (Negative); Specific Gravity 1.025 (1.005-1.025); Urobilinogen 0.2 EU/dL (Up TO 0.2); pH 5.5 (5-8)
[2021-06-20 00:40] LABS: *AMPHETAMINES SCREEN URINE Negative (Negative); *BARBITURATES SCREEN URINE Negative (Negative); *BENZODIAZEPINES SCREEN URINE Negative (Negative); Cannabinoids THC Negative (Negative); Cocaine Screen,Urine Positive (Negative); METHADONE URINE SCREEN Negative (Negative); OPIATES URINE SCREEN Positive (Negative)
[2021-06-20 00:42] LABS: Tricyclic Antidepressants Negative (Negative)
--- NOTE | 2021-06-20 00:45 | DI.RAD_ITS ---
Exam(s) XR CLAVICLE LT EXAM: XR CLAVICLE LT CLINICAL HISTORY: SC/medial clavicle osteo. TECHNIQUE: 2D digital imaging was performed. COMPARISON: No exams were available for comparison FINDINGS: No evidence of left clavicle fracture. AC joint appears unremarkable. IMPRESSION: No clavicle fracture evident. DATA REPOSITORY: RADIATION DOSE DELIVERED:
--- NOTE | 2021-06-20 00:45 | DI.RAD_ITS ---
Exam(s) XR CHEST 2V PA LATERAL EXAM: XR CHEST 2V PA LATERAL CLINICAL HISTORY: chest wall infection. TECHNIQUE: 2D digital imaging was performed. COMPARISON: CT CT CHEST W from 04/06/2021 FINDINGS: Heart size is normal. The mediastinum is not widened. Right lung is clear. Subtle nodular infiltrate noted in the lower right lung field on the PA view; l ess evident on the lateral view. Recommend and follow-up CT scan to compared to the prior CT scan of 04/06/2021, particularly given the history here. No pleural effusions IMPRESSION: Subtle nodular infiltrate in the left lung base region. Close follow-up recommended. Consider CT sc an to compared to the prior CT scan findings of 04/06/2021. Report called by myself to ER provider 06/20/2021 7:50 am DATA REPOSITORY: RADIATION DOSE DELIVERED:
[2021-06-20 00:47] LABS: Bacteria Few HPF (Negative); C & S Indicated? Yes; Casts Negative LPF (Negative); Crystals Negative HPF (Negative); Epithelial Cells Rare HPF (Negative); Mucus Moderate (Negative)
[2021-06-20] MEDS: VANCOMYCIN 1,500 MG in Normal Saline 500 ML 333.3333 MG IVPB (00:50)
[2021-06-20 01:27] VITALS: BP 109/56; PULSE 70; RESP 16; TEMP 36.3; O2SAT 98
--- NOTE | 2021-06-20 02:01 | DI.VRAD_ITS ---
PROCEDURE INFORMATION: Exam: XR Left Clavicle, Complete Exam date and time: 06/20/2021 12:52 AM Age: 41 years old Clinical indication: Other: Sc/medial clavicle osteo TECHNIQUE: Imaging protocol: XR Left clavicle complete. Views: Any number of views. COMPARISON: CR XR CHEST 2V PA LATERAL 06/20/2021 1:23 AM FINDINGS: Bones/joints: Normal. Soft tissues: Normal. IMPRESSION: No acute findings. Dictated and Authenticated by: Julian Gonzalez MD. Ordering:LEANDRO Hameed MD
--- NOTE | 2021-06-20 02:05 | DI.VRAD_ITS ---
PROCEDURE INFORMATION: Exam: XR Chest Exam date and time: 06/20/2021 12:52 AM Age: 41 years old Clinical indication: Other: Chest wall infection TECHNIQUE: Imaging protocol: XR of the chest. Views: 2 views. COMPARISON: CT NECK CHEST W 06/19/2021 11:09 PM FINDINGS: Lungs: Unremarkable. No consolidation. Pleural spaces: Unremarkable. No pleural effusion. No pneumothorax. Heart/Mediastinum: Unremarkable. No cardiomegaly. Bones/joints: Unremarkable. IMPRESSION: No acute findings. Dictated and Authenticated by: Julian Gonzalez MD. Ordering:LEANDRO Hameed MD
[2021-06-20 02:09] LABS: Lab Add On Test DONE
[2021-06-20 02:29] LABS: Procalcitonin < 0.1 ng/mL
[2021-06-20 02:32] VITALS: BP 127/83; PULSE 66; RESP 18; TEMP 36.3; O2SAT 100
--- NOTE | 2021-06-20 07:17 | HPE_ITS ---
Date of service: 06/20/21 Time of Service: 07:17 Assessment and Plan Assessment and plan (1) Osteomyelitis of clavicle: Status: Acute Assessment and plan: continue vancomycin, await blood cultures; if p ositive then will need echo; irregardless, he will need 6 weeks of effective parenteral antibiotics; most likely cause is MRSA given his prior hx and incomplete antibiotic treatment; ortho consulted to evaluate any surgical intervention. Will get MRI of his neck given his neck pain and close proximity of the infection. No visible drainable abscess was seen on CT of his neck and chest otherwise I would consult surgery to evaluate for drainage. This appears to have been an MRSA cellulitis that never completely cleared and now involves the proximal clavicle and manubrium. (2) Phlegmonous cellulitis: Status: Acute Assessment and plan: ass above (3) Neck pain: Status: Acute Assessment and plan: will treat w/ NSAID; check MRI of C-spine and soft tissues of neck (4) Heroin abuse: Status: Acute History of Present Illness History of Present Illness Chief Complaint: neck and chest wall abscess Narrative: 41 yr old male w/ hx of IVDU (currently still uses including heroin last used 2-3 days ago) who was treated for MRSA bacteremia and left chest wall cellulitis and abscess that involved his left pectoralis muscle. He was treated with Vancomycin and Zosyn and was treated from 04/06-04/07 and left A.M.A. but returned the next day 04/08 and was treated until 04/09 when he left again A.M.A. He had echocardiogram that did not show any vegetations and his chest wall abscess was incised and drained and grew MRSA. He reportedly was treated w/ oral antibiotics as an outpatient (outside Rx profile shows 7 day course of clindamycin filled 04/29 although the patient states that he took Bactrim DS x 2 weeks). He reports that his abscess improved but over the past month has gotten worse with increased redness and swelling over left anterior chest down to left nipple. He is also now complaining of pain with lifting his left arm and turning his neck. Evaluation in the ER included CT of his neck and chest, see below for Vrad impression: IMPRESSION: Minor edema extends into the left supraclavicular space, please see CT thorax for discussion below. No abscess in the neck. IMPRESSION: 1. Left medial clavicular and manubrial osteomyelitis. Presumed infection of the joint at this location. 3 x 2 x 4 cm phlegmon anterior to this location. 2. Mild perihilar inhalational or infectious endobronchial disease, could be pneumonia or pneumonitis depending on the scenario, could be aspiration. 3. Incidental findings as described. Dictated and Authenticated by: Baylee Montenegro MD. Blood cultures were obtained and patient was started on Vancomycin. Dr. Parr, orthopedics was consulted by the ER d/t osteomyelitis involving his left clavicle and manubrium. Patient is admitted for parenteral antibiotics. Review of Systems Constitutional Constitutional: Denies chills and Denies fever(s) ENT Ears, Nose, Mouth, and Throat: Reports neck pain Musculoskeletal Musculoskeletal: Reports as per HPI and Reports neck pain Integumentary/Breasts Skin/Breast: Reports as per HPI, Reports breast swelling and Reports erythema Neurologic Neurologic: Reports system reviewed and no additional complaints, except as documented PFSH All Active Problems Osteomyelitis of clavicle (Acute) Phlegmonous cellulitis (Acute) Neck pain (Acute) Heroin abuse (Acute) IVDU (intravenous drug user) (Acute) Medical History (Updated 06/20/21 @ 08:24 by Lei Benitez) Abscess or cellulitis of chest wall Chest wall abscess MRSA bacteremia No significant past medical history Staphylococcus aureus bacteremia Surgical History History of surgery on extremity right leg surgery; age 10 yr old Family History Sister [place] chorea Mother [place] chorea Social History (Updated 06/20/21 @ 08:25 by Lei Benitez) Smoking/Tobacco Use Status: Current every day Tobacco Type: cigarettes Smoking packs per day: 1.5 Smoking cigarettes per day: 30.0 Smoking risk assessment performed?: Yes Alcohol Intake: former Drug use: Daily Substance use type: crack/cocaine and heroin Details: States he is down to a bag a day. Occasionally snorts cocaine Do you feel safe at home: Yes Do you feel safe in your relationship?: Yes Meds Allergies and Home Medications Allergies Allergy/AdvReac Type Severity Reaction Status Date / Time No Known Allergies Allergy Unverified 06/19/21 22:36 Home Medications Medication Instructions Recorded Confirmed Type Unknown [No Known Home Meds] 04/06/21 06/19/21 History Exam Narrative Exam Narrative: Young white male alert/oriented in no acute distress, states minimal pain over his left chest and left side fo his neck HEENT: poor dentition otherwise unremarkable Neck: supple, no nuchal rigidity, no c-spine tenderness to palpation; left sternocleidomastoid muscle feels firm and is tender over the clavicular head; medial portion of clavicle is red and edematous and tender to palpation; right side of neck is nontender; normal carotid pulses w/out bruits. normal ROM although tender w/ lateral rotation to the right Chest wall: induration over left anterior chest wall from clavicle to left nipple; erythema over superior and medial left chest wall from medial clavicle and superior manubrium down to 3-4th intercostal space Heart: RRR w/out murmur, rub or gallops Abdomen: soft, nontender, no organomegaly Extremities: no edema or erythema, normal pulses; no open sores Skin: multiple tatoos over chest, upper back and arms Neuro: grossly intact w/ out focal motor or sensory deficits Results Labs Result diagrams: 06/20/21 07:10 06/20/21 07:10 Labs: Laboratory Results - last 24 hr 06/19/21 06/19/21 06/19/21 22:50 23:23 23:23 WBC 11.59 H RBC 4.64 Hgb 12.7 L Hct 40.3 MCV 86.9 MCH 27.4 MCHC 31.5 L RDW 13.0 Plt Count 367 MPV 9.1 Immature Gran % 0.4 Neutrophils % 71.4 Lymphocytes % 21.0 Monocytes % 5.2 Eosinophils % 1.6 Basophils % 0.4 Nucleated RBC % 0 Absolute Neutrophils 8.28 H Absolute Lymphocytes 2.43 Absolute Monocytes 0.60 Absolute Eosinophils 0.19 Absolute Basophils 0.05 VBG Lactate Sodium 136 Potassium 3.5 Chloride 102 Carbon Dioxide 25.0 Anion Gap 9.0 BUN 19 H Creatinine 1.0 Estimated GFR/1.73 m2 >= 60.00 Glucose 135 H Calcium 8.7 Magnesium 2.3 Total Bilirubin 0.2 AST 24 ALT 37 Alkaline Phosphatase 89 Total Protein 9.1 H Albumin 3.0 L Procalcitonin Urine Color Urine Clarity Urine pH Ur Specific [place] Urine Protein Urine Ketones Urine Blood Urine Nitrite Urine Bilirubin Urine Urobilinogen Ur Leukocyte Esterase Urine RBC Urine WBC Ur Epithelial Cells Urine Crystals Urine Bacteria Urine Casts Urine Mucus Ur Culture Indicated? Urine Glucose Urine Opiates Screen Urine Methadone Screen Ur Barbiturates Screen Ur Tricyclics Screen Ur Amphetamines Screen U Benzodiazepines Scrn Urine Cocaine Screen Ur THC Screen COVID-19 Source Nasal/Nares SARS-CoV-2 (PCR) Negative Add-On Test Request 06/19/21 06/19/21 06/20/21 23:55 23:55 00:20 WBC RBC Hgb Hct MCV MCH MCHC RDW Plt Count MPV Immature Gran % Neutrophils % Lymphocytes % Monocytes % Eosinophils % Basophils % Nucleated RBC % Absolute Neutrophils Absolute Lymphocytes Absolute Monocytes Absolute Eosinophils Absolute Basophils VBG Lactate 1.1 Sodium Potassium Chloride Carbon Dioxide Anion Gap BUN Creatinine Estimated GFR/1.73 m2 Glucose Calcium Magnesium Total Bilirubin AST ALT Alkaline Phosphatase Total Protein Albumin Procalcitonin < 0.1 Urine Color Urine Clarity Urine pH Ur Specific [place] Urine Protein Urine Ketones Urine Blood Urine Nitrite Urine Bilirubin Urine Urobilinogen Ur Leukocyte Esterase Urine RBC Urine WBC Ur Epithelial Cells Urine Crystals Urine Bacteria Urine Casts Urine Mucus Ur Culture Indicated? Urine Glucose Urine Opiates Screen Positive A Urine Methadone Screen Negative Ur Barbiturates Screen Negative Ur Tricyclics Screen Negative Ur Amphetamines Screen Negative U Benzodiazepines Scrn Negative Urine Cocaine Screen Positive A Ur THC Screen Negative COVID-19 Source SARS-CoV-2 (PCR) Add-On Test Request 06/20/21 06/20/21 00:20 01:24 WBC RBC Hgb Hct MCV MCH MCHC RDW Plt Count MPV Immature Gran % Neutrophils % Lymphocytes % Monocytes % Eosinophils % Basophils % Nucleated RBC % Absolute Neutrophils Absolute Lymphocytes Absolute Monocytes Absolute Eosinophils Absolute Basophils VBG Lactate Sodium Potassium Chloride Carbon Dioxide Anion Gap BUN Creatinine Estimated GFR/1.73 m2 Glucose Calcium Magnesium Total Bilirubin AST ALT Alkaline Phosphatase Total Protein Albumin Procalcitonin Urine Color Yellow Urine Clarity Clear Urine pH 5.5 Ur Specific [place] 1.025 Urine Protein Trace H Urine Ketones Negative Urine Blood Negative Urine Nitrite Negative Urine Bilirubin Negative Urine Urobilinogen 0.2 Ur Leukocyte Esterase Negative Urine RBC 3-5 H Urine WBC 10-20 H Ur Epithelial Cells Rare Urine Crystals Negative Urine Bacteria Few Urine Casts Negative Urine Mucus Moderate Ur Culture Indicated? Yes Urine Glucose Negative Urine Opiates Screen Urine Methadone Screen Ur Barbiturates Screen Ur Tricyclics Screen Ur Amphetamines Screen U Benzodiazepines Scrn Urine Cocaine Screen Ur THC Screen COVID-19 Source SARS-CoV-2 (PCR) Add-On Test Request DONE Last Vital Signs Temp 36.3 C L 06/20/21 02:32 Pulse 66 06/20/21 02:32 Resp 18 06/20/21 02:32 BP 127/83 06/20/21 02:32 Pulse Ox 100 06/20/21 02:32 PAWSS Pt Consumed Any Amount of Alcohol Within the Last 30 days OR had positive RAYMOND Upon Admission: No
[2021-06-20 07:19] LABS: Abs Immature Grans 0.06 10^3/uL (0.0-0.06); Absolute Basophil Count 0.05 10^3/uL (0.0-0.2); Absolute Eosinophil Count 0.31 10^3/uL (0.0-0.7); Absolute Lymphocyte Count 3.12 10^3/uL (1.2-3.4); Absolute Monocyte Count 0.65 10^3/uL (0.1-0.8); Absolute Neutrophil Count 6.22 10^3/uL (1.2-6.7); Basophils % 0.5; HCT 36.4 % (40.0-50.0); HGB 11.4 g/dL (13.5-17.5); Immature Grans % 0.6; MCH 27.3 pg (27.0-33.0); MCHC 31.3 % (32.0-36.0); MCV 87.1 fL (80-95); MPV 8.9 fL (8.0-11.0); Monocytes % 6.2; Neutrophils % 59.7; Nucleated RBC 0 %; Platelet Count 335 10^3/uL (130-400); RBC 4.18 10^6/uL (4.36-5.78); RDW-SD 41.3 fL; WBC 10.41 10^3/uL (4.4-10.8)
[2021-06-20 07:27] LABS: ESR 65 mm/hr (0-15)
[2021-06-20 07:28] LABS: Anion Gap 6.5 mmol/L (3-11); BUN 17 mg/dL (7-18); CO2 28.5 mmol/L (21.0-32.0); CREATININE 0.8 mg/dL (0.70-1.30); Calcium 8.2 mg/dL (8.5-10.1); Chloride 104 mmol/L (98-107); Glucose 131 mg/dL (74-106); Potassium 3.2 mmol/L (3.5-5.1); Sodium 139 mmol/L (136-145)
[2021-06-20 08:03] VITALS: BP 109/69; PULSE 65; RESP 18; TEMP 36.6; O2SAT 98
[2021-06-20] MEDS: Enoxaparin 40 MG/0.4 ML SYR SC (08:06)
[2021-06-20] MEDS: Pantoprazole 40 MG TABCR PO (08:07)
[2021-06-20] MEDS: VANCOMYCIN/WATER (PEG) 1.25 GM/250 ML BAG IV ×2 (08:58→15:47)
[2021-06-20] MEDS: Potassium Chloride 20 MEQ TABCR 40 MEQ PO (08:59)
[2021-06-20] MEDS: Normal Saline 500 ML 30 ML IV (08:59)
--- NOTE | 2021-06-20 09:55 | PDOC.CMIN ---
- If Service Date Differs Date of service: 06/20/21 Time of Service: 09:55 Care Management Initial Assess REASON FOR HOSPITALIZATION:: osteomyelitis PAST MEDICAL HISTORY/PAST SURGICAL HISTORY:: Medical History (Updated 04/06/21 @ 17:24 by Lei Benitez). Heroin abuse. No significant past medical history. Surgical History (Updated 04/06/21 @ 17:24 by Lei Benitez). History of surgery on extremity. right leg surgery; age 10 yr old PREVIOUS FUNCTIONAL STATUS/SOCIAL/FAMILY SUPPORTS:: Roel lives in a single family home in [place], [place] with his Beena and 2 of their 3 children. 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 Roel is independent at baseline and does not receive any community services. CURRENT FUNCTIONAL STATUS:: Roel was sitting up in bed when CM met with him. He was polite and agreeable to conversation. Roel stated that he has been doing well since his last admission. He understands that he will need correction IV antibiotics and stated that he intends to remain at [facility] for the treatment. (He has previously signed out AMA twice when told he needed an extended course of antibiotics) Roel also stated that he is continuing to use drugs and does not want and interventions for this. ADVANCE DIRECTIVES:: Roel has no advanced directives and is not interested. Has patient been provided with info about the portal/API?: Yes Did the patient sign up for the portal?: No CODE STATUS:: Full Code INSURANCE COVERAGE / FINANCIAL ISSUES:: Medicaid CURRENT HOME/COMMUNITY SERVICES/EQUIPMENT:: none PRIMARY CARE PHYSICIAN:: Regina Bowman POTENTIAL DISCHARGE NEEDS:: follow up with PCP and discharge plan of care PATIENT/FAMILY EDUCATION NEEDS:: Review of discharge instructions, medications, follow up plan, Ask Me Three TRANSPORTATION:: via private vehicle PLAN:: Roel will likely be discharged home with no new services. He will follow up with his plan of care and transport with friends or family. CM will continue to support Roel and his discharge planning needs.
--- NOTE | 2021-06-20 10:35 | OCONE_ITS ---
Date of service: 06/20/21 Time of Service: 10:17 History of Present Illness Narrative: 41-year-old male complains of worsening left chest infection. Started probably March, inpatient admission briefly early April with issues of compliance leaving AMA and subsequently with antibiotic management for MRSA chest wall abscess and cellulitis. Current redness and swelling has been stable for the past few weeks. History of IVDA. Denies any significant cardiac pain, trouble breathing, or neck issues. Consult Reason Evaluate/treat Clavicular and manubrial osteomyelitis Assessment and Plan Assessment and plan (1) Osteomyelitis of clavicle: Status: Acute Assessment and plan: 41-year-old male with subacute left chest wall infection involving prior abscess incompletely treated and having progressed to sternal and medial clavicle osteomyelitis with SC joint destruction and surrounding soft tissue phlegmon. Situation complicated by noncompliance, IV drug abuse heroin, cocaine, and smoking addictions. Unclear level of active versus indolent infection at this time given no elevation WBC, only mildly elevated ESR CRP, and patient remains afebrile and stable. Prior cultures from last admission for this problem about 6 weeks ago grew MRSA. There is no palpable drainable collection and probably low utility in obtaining new tissue samples given progression of prior infection. Would consider polymicrobial infection if MRSA treatment fails. Recommend medical management with antibiotics and discussion with thoracic surgery at a tertiary care facility regarding need for any acute or outpatient surgical evaluation/intervention. Optimize complicating medical and social factors as best possible. Case discussed with Dr. Bocanegra who agrees and understands. (2) Phlegmonous cellulitis: Status: Acute (3) Heroin abuse: Status: Acute (4) IVDU (intravenous drug user): Status: Acute Review of Systems Narrative: Denies any recent fevers or chills. Remainder per HPI. PFSH All Active Problems Osteomyelitis of clavicle (Acute) Phlegmonous cellulitis (Acute) Neck pain (Acute) Heroin abuse (Acute) IVDU (intravenous drug user) (Acute) Medical History (Updated 06/20/21 @ 08:24 by Lei Benitez) Abscess or cellulitis of chest wall Chest wall abscess MRSA bacteremia No significant past medical history Staphylococcus aureus bacteremia Surgical History History of surgery on extremity right leg surgery; age 10 yr old Family History Sister Douglas chorea Mother [place] chorea Social History (Updated 06/20/21 @ 08:25 by Lei Benitez) Smoking/Tobacco Use Status: Current every day Tobacco Type: cigarettes Smoking packs per day: 1.5 Smoking cigarettes per day: 30.0 Smoking risk assessment performed?: Yes Alcohol Intake: former Drug use: Daily Substance use type: crack/cocaine and heroin Details: States he is down to a bag a day. Occasionally snorts cocaine Do you feel safe at home: Yes Do you feel safe in your relationship?: Yes Exam Narrative Exam Narrative: Resting in hospital bed. No acute distress. Breathing comfortably on room air. Left upper extremity to plus radial pulse. Regular rate and rhythm. Left of central sternal and medial clavicle obvious moderately sized area of induration that is quite firm. Unable to palpate any fluctuance. No significant discomfort on exam. Chronic appearing dull erythema without active warmth or tenderness about surrounding chest wall. Demonstrates active range of motion about shoulder without difficulty. Remainder of clavicle nontender to palpation. No other extremity or joint infections. Results Last Vital Signs Temp 97.3 F L 06/20/21 02:32 Pulse 66 06/20/21 02:32 Resp 18 06/20/21 02:32 BP 127/83 06/20/21 02:32 Pulse Ox 100 06/20/21 02:32 Labs Result diagrams: 06/20/21 07:10 06/20/21 07:10 Labs: Laboratory Results - last 24 hr 06/19/21 06/19/21 06/19/21 22:50 23:23 23:23 WBC 11.59 H RBC 4.64 Hgb 12.7 L Hct 40.3 MCV 86.9 MCH 27.4 MCHC 31.5 L RDW 13.0 Plt Count 367 MPV 9.1 Immature Gran % 0.4 Neutrophils % 71.4 Lymphocytes % 21.0 Monocytes % 5.2 Eosinophils % 1.6 Basophils % 0.4 Nucleated RBC % 0 Absolute Neutrophils 8.28 H Absolute Lymphocytes 2.43 Absolute Monocytes 0.60 Absolute Eosinophils 0.19 Absolute Basophils 0.05 VBG Lactate Sodium 136 Potassium 3.5 Chloride 102 Carbon Dioxide 25.0 Anion Gap 9.0 BUN 19 H Creatinine 1.0 Estimated GFR/1.73 m2 >= 60.00 Glucose 135 H Calcium 8.7 Magnesium 2.3 Total Bilirubin 0.2 AST 24 ALT 37 Alkaline Phosphatase 89 Total Protein 9.1 H Albumin 3.0 L Procalcitonin Urine Color Urine Clarity Urine pH Ur Specific [place] Urine Protein Urine Ketones Urine Blood Urine Nitrite Urine Bilirubin Urine Urobilinogen Ur Leukocyte Esterase Urine RBC Urine WBC Ur Epithelial Cells Urine Crystals Urine Bacteria Urine Casts Urine Mucus Ur Culture Indicated? Urine Glucose Urine Opiates Screen Urine Methadone Screen Ur Barbiturates Screen Ur Tricyclics Screen Ur Amphetamines Screen U Benzodiazepines Scrn Urine Cocaine Screen Ur THC Screen COVID-19 Source Nasal/Nares SARS-CoV-2 (PCR) Negative Add-On Test Request 06/19/21 06/19/21 06/20/21 23:55 23:55 00:20 WBC RBC Hgb Hct MCV MCH MCHC RDW Plt Count MPV Immature Gran % Neutrophils % Lymphocytes % Monocytes % Eosinophils % Basophils % Nucleated RBC % Absolute Neutrophils Absolute Lymphocytes Absolute Monocytes Absolute Eosinophils Absolute Basophils VBG Lactate 1.1 Sodium Potassium Chloride Carbon Dioxide Anion Gap BUN Creatinine Estimated GFR/1.73 m2 Glucose Calcium Magnesium Total Bilirubin AST ALT Alkaline Phosphatase Total Protein Albumin Procalcitonin < 0.1 Urine Color Urine Clarity Urine pH Ur Specific [place] Urine Protein Urine Ketones Urine Blood Urine Nitrite Urine Bilirubin Urine Urobilinogen Ur Leukocyte Esterase Urine RBC Urine WBC Ur Epithelial Cells Urine Crystals Urine Bacteria Urine Casts Urine Mucus Ur Culture Indicated? Urine Glucose Urine Opiates Screen Positive A Urine Methadone Screen Negative Ur Barbiturates Screen Negative Ur Tricyclics Screen Negative Ur Amphetamines Screen Negative U Benzodiazepines Scrn Negative Urine Cocaine Screen Positive A Ur THC Screen Negative COVID-19 Source SARS-CoV-2 (PCR) Add-On Test Request 06/20/21 06/20/21 00:20 01:24 WBC RBC Hgb Hct MCV MCH MCHC RDW Plt Count MPV Immature Gran % Neutrophils % Lymphocytes % Monocytes % Eosinophils % Basophils % Nucleated RBC % Absolute Neutrophils Absolute Lymphocytes Absolute Monocytes Absolute Eosinophils Absolute Basophils VBG Lactate Sodium Potassium Chloride Carbon Dioxide Anion Gap BUN Creatinine Estimated GFR/1.73 m2 Glucose Calcium Magnesium Total Bilirubin AST ALT Alkaline Phosphatase Total Protein Albumin Procalcitonin Urine Color Yellow Urine Clarity Clear Urine pH 5.5 Ur Specific [place] 1.025 Urine Protein Trace H Urine Ketones Negative Urine Blood Negative Urine Nitrite Negative Urine Bilirubin Negative Urine Urobilinogen 0.2 Ur Leukocyte Esterase Negative Urine RBC 3-5 H Urine WBC 10-20 H Ur Epithelial Cells Rare Urine Crystals Negative Urine Bacteria Few Urine Casts Negative Urine Mucus Moderate Ur Culture Indicated? Yes Urine Glucose Negative Urine Opiates Screen Urine Methadone Screen Ur Barbiturates Screen Ur Tricyclics Screen Ur Amphetamines Screen U Benzodiazepines Scrn Urine Cocaine Screen Ur THC Screen COVID-19 Source SARS-CoV-2 (PCR) Add-On Test Request DONE Imaging Additional studies: WBC actually within normal limits. Mildly elevated ESR and CRP. Imaging Studies: MRI chest 04/08/2021 and more recent x-rays and CT scan 06/20/2020 shows worsening complex left chest wall infection with chronic appearing phlegmon without any obvious discrete collection and interim destruction of the medial aspect of the clavicle and sternum at the SC joint.
[2021-06-20] MEDS: diazePAM 2 MG TAB 5 MG PO (11:12)
[2021-06-20] MEDS: Ketorolac 30 MG/ML VIAL IVP (12:58)
[2021-06-20] MEDS: Normal Saline Flush 10 ML SYR IVP (15:48)
[2021-06-20 15:55] VITALS: BP 94/56; PULSE 74; RESP 14; TEMP 36.6; O2SAT 95
--- NOTE | 2021-06-20 18:46 | W.PM.PROGNOT ---
Date of Service Date of service: 06/20/21 Time of Service: 18:46 Subjective Subjective Interval history since last seen: Per Dr Parr's recommendation, I discussed the case with [facility] [place] Dr Mon[place]. Dr Moncada felt that the patient should undergo an I&D and clavicular head excision at our facility on this admission and stated that he would be happy to talk to our orthopedic surgeon. I communicated this to Dr Parr, who will be following up on this. For now, continue vancomycin, given the patient's prior h/o MRSA. The patient was written a diet and was seen in brief follow up. He did not feel any better yet. His blood cultures are still pending. I ordered MRSA nares and instructed nursing to put him on contact precautions given his h/o MRSA. Objective Last Vital Signs Temp 36.6 C 06/20/21 15:55 Pulse 74 06/20/21 15:55 Resp 14 06/20/21 15:55 BP 94/56 L 06/20/21 15:55 Pulse Ox 95 06/20/21 15:55 Laboratory Results - last 24 hr 06/19/21 06/19/21 06/19/21 22:50 23:23 23:23 WBC 11.59 H RBC 4.64 Hgb 12.7 L Hct 40.3 MCV 86.9 MCH 27.4 MCHC 31.5 L RDW 13.0 Plt Count 367 MPV 9.1 Immature Gran % 0.4 Neutrophils % 71.4 Lymphocytes % 21.0 Monocytes % 5.2 Eosinophils % 1.6 Basophils % 0.4 Nucleated RBC % 0 Absolute Neutrophils 8.28 H Absolute Lymphocytes 2.43 Absolute Monocytes 0.60 Absolute Eosinophils 0.19 Absolute Basophils 0.05 ESR VBG Lactate Sodium 136 Potassium 3.5 Chloride 102 Carbon Dioxide 25.0 Anion Gap 9.0 BUN 19 H Creatinine 1.0 Estimated GFR/1.73 m2 >= 60.00 Glucose 135 H Calcium 8.7 Magnesium 2.3 Total Bilirubin 0.2 AST 24 ALT 37 Alkaline Phosphatase 89 C-Reactive Protein Total Protein 9.1 H Albumin 3.0 L Procalcitonin Urine Color Urine Clarity Urine pH Ur Specific [place] Urine Protein Urine Ketones Urine Blood Urine Nitrite Urine Bilirubin Urine Urobilinogen Ur Leukocyte Esterase Urine RBC Urine WBC Ur Epithelial Cells Urine Crystals Urine Bacteria Urine Casts Urine Mucus Ur Culture Indicated? Urine Glucose Urine Opiates Screen Urine Methadone Screen Ur Barbiturates Screen Ur Tricyclics Screen Ur Amphetamines Screen U Benzodiazepines Scrn Urine Cocaine Screen Ur THC Screen COVID-19 Source Nasal/Nares SARS-CoV-2 (PCR) Negative Add-On Test Request 06/19/21 06/19/21 06/20/21 23:55 23:55 00:20 WBC RBC Hgb Hct MCV MCH MCHC RDW Plt Count MPV Immature Gran % Neutrophils % Lymphocytes % Monocytes % Eosinophils % Basophils % Nucleated RBC % Absolute Neutrophils Absolute Lymphocytes Absolute Monocytes Absolute Eosinophils Absolute Basophils ESR VBG Lactate 1.1 Sodium Potassium Chloride Carbon Dioxide Anion Gap BUN Creatinine Estimated GFR/1.73 m2 Glucose Calcium Magnesium Total Bilirubin AST ALT Alkaline Phosphatase C-Reactive Protein Total Protein Albumin Procalcitonin < 0.1 Urine Color Urine Clarity Urine pH Ur Specific [place] Urine Protein Urine Ketones Urine Blood Urine Nitrite Urine Bilirubin Urine Urobilinogen Ur Leukocyte Esterase Urine RBC Urine WBC Ur Epithelial Cells Urine Crystals Urine Bacteria Urine Casts Urine Mucus Ur Culture Indicated? Urine Glucose Urine Opiates Screen Positive A Urine Methadone Screen Negative Ur Barbiturates Screen Negative Ur Tricyclics Screen Negative Ur Amphetamines Screen Negative U Benzodiazepines Scrn Negative Urine Cocaine Screen Positive A Ur THC Screen Negative COVID-19 Source SARS-CoV-2 (PCR) Add-On Test Request 06/20/21 06/20/21 06/20/21 00:20 01:24 07:10 WBC RBC Hgb Hct MCV MCH MCHC RDW Plt Count MPV Immature Gran % Neutrophils % Lymphocytes % Monocytes % Eosinophils % Basophils % Nucleated RBC % Absolute Neutrophils Absolute Lymphocytes Absolute Monocytes Absolute Eosinophils Absolute Basophils ESR VBG Lactate Sodium 139 Potassium 3.2 L Chloride 104 Carbon Dioxide 28.5 Anion Gap 6.5 BUN 17 Creatinine 0.8 Estimated GFR/1.73 m2 >= 60.00 Glucose 131 H Calcium 8.2 L Magnesium Total Bilirubin AST ALT Alkaline Phosphatase C-Reactive Protein 3.20 H Total Protein Albumin Procalcitonin Urine Color Yellow Urine Clarity Clear Urine pH 5.5 Ur Specific [place] 1.025 Urine Protein Trace H Urine Ketones Negative Urine Blood Negative Urine Nitrite Negative Urine Bilirubin Negative Urine Urobilinogen 0.2 Ur Leukocyte Esterase Negative Urine RBC 3-5 H Urine WBC 10-20 H Ur Epithelial Cells Rare Urine Crystals Negative Urine Bacteria Few Urine Casts Negative Urine Mucus Moderate Ur Culture Indicated? Yes Urine Glucose Negative Urine Opiates Screen Urine Methadone Screen Ur Barbiturates Screen Ur Tricyclics Screen Ur Amphetamines Screen U Benzodiazepines Scrn Urine Cocaine Screen Ur THC Screen COVID-19 Source SARS-CoV-2 (PCR) Add-On Test Request DONE 06/20/21 06/20/21 06/20/21 07:10 07:10 14:12 WBC 10.41 RBC 4.18 L Hgb 11.4 L Hct 36.4 L MCV 87.1 MCH 27.3 MCHC 31.3 L RDW 13.0 Plt Count 335 MPV 8.9 Immature Gran % 0.6 Neutrophils % 59.7 Lymphocytes % 30.0 Monocytes % 6.2 Eosinophils % 3.0 Basophils % 0.5 Nucleated RBC % 0 Absolute Neutrophils 6.22 Absolute Lymphocytes 3.12 Absolute Monocytes 0.65 Absolute Eosinophils 0.31 Absolute Basophils 0.05 ESR 65 H VBG Lactate Sodium Potassium 4.0 D Chloride Carbon Dioxide Anion Gap BUN Creatinine Estimated GFR/1.73 m2 Glucose Calcium Magnesium Total Bilirubin AST ALT Alkaline Phosphatase C-Reactive Protein Total Protein Albumin Procalcitonin Urine Color Urine Clarity Urine pH Ur Specific [place] Urine Protein Urine Ketones Urine Blood Urine Nitrite Urine Bilirubin Urine Urobilinogen Ur Leukocyte Esterase Urine RBC Urine WBC Ur Epithelial Cells Urine Crystals Urine Bacteria Urine Casts Urine Mucus Ur Culture Indicated? Urine Glucose Urine Opiates Screen Urine Methadone Screen Ur Barbiturates Screen Ur Tricyclics Screen Ur Amphetamines Screen U Benzodiazepines Scrn Urine Cocaine Screen Ur THC Screen COVID-19 Source SARS-CoV-2 (PCR) Add-On Test Request PAWSS Pt Consumed Any Amount of Alcohol Within the Last 30 days OR had positive RAYMOND Upon Admission: No
[2021-06-20 22:32] VITALS: BP 97/60; PULSE 66; RESP 16; TEMP 36.8; O2SAT 98
[2021-06-21] MEDS: VANCOMYCIN/WATER (PEG) 1.25 GM/250 ML BAG IV ×4 (00:52→23:46)
[2021-06-21 07:27] VITALS: BP 119/69; PULSE 61; RESP 18; TEMP 36.3; O2SAT 98
[2021-06-21 07:35] LABS: Abs Immature Grans 0.05 10^3/uL (0.0-0.06); Absolute Basophil Count 0.05 10^3/uL (0.0-0.2); Absolute Eosinophil Count 0.23 10^3/uL (0.0-0.7); Absolute Lymphocyte Count 3.27 10^3/uL (1.2-3.4); Absolute Monocyte Count 0.51 10^3/uL (0.1-0.8); Absolute Neutrophil Count 5.19 10^3/uL (1.2-6.7); Basophils % 0.5; Eosinophils % 2.5; HCT 34.3 % (40.0-50.0); HGB 10.9 g/dL (13.5-17.5); Immature Grans % 0.5; Lymphocytes % 35.2; MCH 27.4 pg (27.0-33.0); MCHC 31.8 % (32.0-36.0); MCV 86.2 fL (80-95); MPV 9.1 fL (8.0-11.0); Monocytes % 5.5; Neutrophils % 55.8; Nucleated RBC 0 %; Platelet Count 308 10^3/uL (130-400); RBC 3.98 10^6/uL (4.36-5.78); RDW 12.9 % (11.8-14.1); RDW-SD 40.8 fL
[2021-06-21 07:59] LABS: Vancomycin, Trough 19.6 ug/mL (10.0-20.0)
[2021-06-21 07:59] LABS: Anion Gap 6.6 mmol/L (3-11); BUN 19 mg/dL (7-18); CO2 26.4 mmol/L (21.0-32.0); CREATININE 0.8 mg/dL (0.70-1.30); Calcium 8.4 mg/dL (8.5-10.1); Chloride 105 mmol/L (98-107); Glucose 93 mg/dL (74-106); Magnesium 2.2 mg/dL (1.8-2.4); Potassium 3.8 mmol/L (3.5-5.1); Sodium 138 mmol/L (136-145)
[2021-06-21] MEDS: Pantoprazole 40 MG TABCR PO (08:23)
[2021-06-21] MEDS: Normal Saline Flush 10 ML SYR IVP ×3 (08:24→23:47)
--- NOTE | 2021-06-21 14:20 | W.PM.PROGNOT ---
Date of Service Date of service: 06/21/21 Time of Service: 14:20 Assessment and Plan Assessment and plan (1) Osteomyelitis of clavicle: Status: Acute Assessment and plan: continue vancomycin. Blood culture growing gram positive cocci. Echocardiogram ordered. Plan 6 weeks of effective parenteral antibiotics; most likely cause is MRSA given his prior hx and incomplete antibiotic treatment. Ortho consult appreciated. No visible drainable abscess was seen on CT of his neck MRI shows findings consistent with septic arthritis of the left sternoclavicular joint and destructive osteomyelitis of the medial aspect of the left clavicle. Signal abnormality in the adjacent left side of the manubrium sternum is most probably also consistent with osteomyelitis of the sternum at this level. Although it is somewhat difficult to determine abscess from phlegmonous involvement without IV contrast, there does appear to be a fluid collection as described above anterior to this region which is most probably purulent/abcess. There is also involvement of the anterior mediastinal fat the hind the sternoclavicular joint and left side of the sternum just anterior to the innominate vein. [facility] [place] will need to evaluate and intervene surgically. This is not an orthopedic issue that can be intervened with surgery at [facility]; requires CTS to perform or to be at standby. (2) Phlegmonous cellulitis: Status: Acute Assessment and plan: as above (3) Neck pain: Status: Acute Assessment and plan: Improved. will treat w/ NSAID (4) Heroin abuse: Status: Acute Assessment and plan: Treatment referral if patient is willing. Subjective Subjective Patient reports: no new complaints and afebrile; denies nausea, vomiting and shortness of breath Interval history since last seen: No current pain at left sternoclavicular area. No palpitations, CP. No chills. Tolerating diet. Exam Narrative Exam Narrative: Young white male alert/oriented in no acute distress. HEENT: poor dentition otherwise unremarkable Neck: supple, lleft sternocleidomastoid muscle feels firm and is tender over the clavicular head; medial end of clavicle is red and edematous and minimally tender to palpation; right side of neck is nontender; normal ROM although tender w/ lateral rotation to the right Chest wall: induration over left anterior chest wall from clavicle to left nipple; erythema over superior and medial left chest wall from medial clavicle and superior manubrium down to 3-4th intercostal space Heart: RRR w/out murmur Abdomen: soft, nontender, no organomegaly Extremities: No edema or calf tenderness. Skin: multiple tatoos over chest, upper back and arms Neuro: grossly intact w/ out focal motor or sensory deficits Objective Last Vital Signs Temp 36.3 C L 06/21/21 07:27 Pulse 61 06/21/21 07:27 Resp 18 06/21/21 07:27 BP 119/69 06/21/21 07:27 Pulse Ox 98 06/21/21 07:27 Laboratory Results - last 24 hr 06/20/21 06/21/21 06/21/21 14:12 07:00 07:05 WBC RBC Hgb Hct MCV MCH MCHC RDW Plt Count MPV Immature Gran % Neutrophils % Lymphocytes % Monocytes % Eosinophils % Basophils % Nucleated RBC % Absolute Neutrophils Absolute Lymphocytes Absolute Monocytes Absolute Eosinophils Absolute Basophils Sodium 138 Potassium 4.0 D 3.8 Chloride 105 Carbon Dioxide 26.4 Anion Gap 6.6 BUN 19 H Creatinine 0.8 Estimated GFR/1.73 m2 >= 60.00 Glucose 93 Calcium 8.4 L Magnesium 2.2 C-Reactive Protein 2.20 H Vancomycin Trough 19.6 06/21/21 07:05 WBC 9.30 RBC 3.98 L Hgb 10.9 L Hct 34.3 L MCV 86.2 MCH 27.4 MCHC 31.8 L RDW 12.9 Plt Count 308 MPV 9.1 Immature Gran % 0.5 Neutrophils % 55.8 Lymphocytes % 35.2 Monocytes % 5.5 Eosinophils % 2.5 Basophils % 0.5 Nucleated RBC % 0 Absolute Neutrophils 5.19 Absolute Lymphocytes 3.27 Absolute Monocytes 0.51 Absolute Eosinophils 0.23 Absolute Basophils 0.05 Sodium Potassium Chloride Carbon Dioxide Anion Gap BUN Creatinine Estimated GFR/1.73 m2 Glucose Calcium Magnesium C-Reactive Protein Vancomycin Trough PAWSS Pt Consumed Any Amount of Alcohol Within the Last 30 days OR had positive RAYMOND Upon Admission: No
[2021-06-21 15:44] VITALS: BP 124/76; PULSE 62; RESP 18; TEMP 36.8; O2SAT 96
[2021-06-21] MEDS: diphenhydrAMINE 25 MG CAP PO (22:02)
[2021-06-21] MEDS: Melatonin 3 MG TAB PO (22:03)
[2021-06-21 23:54] VITALS: BP 122/59; PULSE 59; RESP 17; TEMP 36.5; O2SAT 99
[2021-06-22 06:25] LABS: Abs Immature Grans 0.08 10^3/uL (0.0-0.06); Absolute Basophil Count 0.08 10^3/uL (0.0-0.2); Absolute Eosinophil Count 0.28 10^3/uL (0.0-0.7); Absolute Lymphocyte Count 3.36 10^3/uL (1.2-3.4); Absolute Monocyte Count 0.67 10^3/uL (0.1-0.8); Absolute Neutrophil Count 6.37 10^3/uL (1.2-6.7); Basophils % 0.7; Eosinophils % 2.6; HCT 37.5 % (40.0-50.0); HGB 11.6 g/dL (13.5-17.5); Immature Grans % 0.7; MCH 26.8 pg (27.0-33.0); MCHC 30.9 % (32.0-36.0); MCV 86.6 fL (80-95); MPV 9.1 fL (8.0-11.0); Monocytes % 6.2; Neutrophils % 58.8; Nucleated RBC 0 %; Platelet Count 338 10^3/uL (130-400); RBC 4.33 10^6/uL (4.36-5.78); RDW 12.7 % (11.8-14.1); RDW-SD 40.4 fL; WBC 10.84 10^3/uL (4.4-10.8)
[2021-06-22 06:37] LABS: C-Reactive Protein 1.63 mg/dL (0.0-0.3)
[2021-06-22 07:50] VITALS: BP 104/57; PULSE 71; RESP 18; TEMP 36.5; O2SAT 98
[2021-06-22] MEDS: VANCOMYCIN/WATER (PEG) 1.25 GM/250 ML BAG IV ×3 (08:17→23:59)
[2021-06-22] MEDS: Pantoprazole 40 MG TABCR PO (08:17)
[2021-06-22] MEDS: Normal Saline Flush 10 ML SYR IVP ×2 (08:17→15:34)
[2021-06-22 14:31] LABS: Vancomycin, Random 19.7 ug/mL
--- NOTE | 2021-06-22 15:25 | W.PM.PROGNOT ---
Date of Service Date of service: 06/22/21 Time of Service: 15:29 Assessment and Plan Assessment and plan (1) Osteomyelitis of clavicle: Status: Acute Assessment and plan: continue vancomycin. Blood culture growing micorcoccus Luteus (can be mistaken for staph aureus). Opportunistic infectious agent. Sensitivities pending. Echocardiogram ordered. Plan 6 weeks of effective parenteral antibiotics. Ortho consult appreciated. No visible drainable abscess was seen on CT of his neck MRI shows findings consistent with septic arthritis of the left sternoclavicular joint and destructive osteomyelitis of the medial aspect of the left clavicle. Signal abnormality in the adjacent left side of the manubrium sternum is most probably also consistent with osteomyelitis of the sternum at this level. Although it is somewhat difficult to determine abscess from phlegmonous involvement without IV contrast, there does appear to be a fluid collection as described above anterior to this region which is most probably purulent/abcess. There is also involvement of the anterior mediastinal fat the hind the sternoclavicular joint and left side of the sternum just anterior to the innominate vein. [facility] [place] need to evaluate and intervene surgically. This is not an orthopedic issue that can be intervened with surgery at [facility]; requires CTS to perform or to be at standby. Will re-present this case to CTS when sensitivities and echo results are known. Stable currently. (2) Phlegmonous cellulitis: Status: Acute Assessment and plan: as above (3) Neck pain: Status: Acute Assessment and plan: Improved. will treat w/ NSAID (4) Heroin abuse: Status: Acute Assessment and plan: Treatment referral if patient is willing. Subjective Subjective Patient reports: no new complaints and afebrile; denies nausea, vomiting and shortness of breath Interval history since last seen: No current pain at left sternoclavicular area. No palpitations, CP. No chills. Tolerating diet. Exam Narrative Exam Narrative: alert/oriented in no acute distress. HEENT: poor dentition otherwise unremarkable Neck: supple, lleft sternocleidomastoid muscle feels firm and is tender over the clavicular head; medial end of clavicle is red and edematous and minimally tender to palpation; right side of neck is nontender; normal ROM although tender w/ lateral rotation to the right Chest wall: induration over left anterior chest wall from clavicle to left nipple; erythema over superior and medial left chest wall from medial clavicle and superior manubrium down to 3-4th intercostal space Heart: RRR w/out murmur Abdomen: soft, nontender, no organomegaly Extremities: No edema or calf tenderness. Skin: multiple tatoos over chest, upper back and arms Neuro: grossly intact w/ out focal motor or sensory deficits Objective Last Vital Signs Temp 36.5 C 06/22/21 07:50 Pulse 71 06/22/21 07:50 Resp 18 06/22/21 07:50 BP 104/57 L 06/22/21 07:50 Pulse Ox 98 06/22/21 07:50 Laboratory Results - last 24 hr 06/22/21 06/22/21 06/22/21 05:50 05:50 14:10 WBC 10.84 H RBC 4.33 L Hgb 11.6 L Hct 37.5 L MCV 86.6 MCH 26.8 L MCHC 30.9 L RDW 12.7 Plt Count 338 MPV 9.1 Immature Gran % 0.7 Neutrophils % 58.8 Lymphocytes % 31.0 Monocytes % 6.2 Eosinophils % 2.6 Basophils % 0.7 Nucleated RBC % 0 Absolute Neutrophils 6.37 Absolute Lymphocytes 3.36 Absolute Monocytes 0.67 Absolute Eosinophils 0.28 Absolute Basophils 0.08 C-Reactive Protein 1.63 H Random Vancomycin 19.7 PAWSS Pt Consumed Any Amount of Alcohol Within the Last 30 days OR had positive RAYMOND Upon Admission: No
[2021-06-22 15:45] VITALS: BP 127/80; PULSE 85; RESP 20; TEMP 36.9; O2SAT 97
[2021-06-22 23:04] VITALS: BP 127/82; PULSE 72; RESP 16; TEMP 36.5; O2SAT 97
--- NOTE | 2021-06-23 | DI.US_ITS ---
APPROVED REPORT EXAM: Comprehensive 2D, Doppler, and color-flow Echocardiogram Patient Location: In-Patient Room/Bed: 231 Airconditioning Drafting Officer: nOeyda Bahena RDCS (AE) Indications: Gram positive bacteremia Other Information Study Quality: Adequate Conclusion Normal left ventricular wall thickness and chamber size. Estimated ejection fraction is 60%. There are no segmental wall motion abnormalities Normal right ventricular size and systolic function Both atria are normal in size There are no structural or hemodynamically significant valvular abnormalities Wall motion Left Ventricle The left ventricle is normal size. The left ventricular systolic function is normal. The left ventric ular ejection fraction is within the normal range. There is normal left ventricular wall thickness. T here is normal LV segmental wall motion. There is no ventricular septal defect visualized. LVEF is 60 %. Right Ventricle The right ventricle is normal size. The right ventricular systolic function is normal. Atria The left atrium size is normal. The right atrium size is normal. The interatrial septum is intact wit h no evidence for an atrial septal defect. Aortic Valve The aortic valve is normal in structure. Aortic valve is trileaflet. There is no aortic valvular sten osis. No aortic regurgitation is present. There is no aortic valvular vegetation. Mitral Valve The mitral valve is normal in structure. No evidence of mitral valve stenosis. Trace mitral regurgita tion. There is no evidence of mitral valve vegetations. Tricuspid Valve The tricuspid valve is normal in structure. There is no tricuspid valve stenosis. Trace tricuspid reg urgitation. Unable to assess PA pressure. There is no tricuspid valve vegetations. Pulmonic Valve The pulmonary valve is normal in structure. There is no pulmonic valvular stenosis. There is no pulmo miah valvular regurgitation. There is no pulmonic valve vegetations. Great Vessels The aortic root is normal in size. Ascending aorta is not visualized. Aortic arch is not visualized. IVC is normal in size and collapses >50% with inspiration. Pericardium There is no pericardial effusion. 2D Dimensions IVSD d PLAX 0.98 cm M: 0.6-1.2 LV Vol A2C d MOD 118.9 mL LVPW d PLAX 0.95 cm M: 0.6 - 1.2 LV Vol A4C d MOD 145.6 mL LVID d PLAX 5.24 cm M: 4.2 - 5.8 LA vol/ BSA A2C s A-L 34.9 mL/m2 LVDs 3.60 cm M: 2.5 - 4.0 LA vol/ BSA A4C s A-L 31.1 mL/m2 Ao Root d 3.02 cm M: 3.1 - 3.7 LA Vol/ BSA Biplane s A-L 33.5 mL/m2 RA Area A4C 18.17 cm2 LA Area A4C s MOD 20.81 cm2 RA Vol/ BSA A4C s A-L 24.5 mL/m2 LA Area A2C s MOD 22.42 cm2 LV EF Teichholz 58.3 % LV EF A4C MOD 61.0 % LVEF (Lopez's) 60.85 % M: 52 - 72 LV EF A2C MOD 60.1 % LV Volume 99.73 mL M: 62 - 150 LV EF Biplane MOD 60.8 % LV Volume Index 49.61 mL/m2 M: 34 - 74 SV 81.13 mL LV Vol Biplane MOD 133.3 mL SV Index 40.23 mL/m2 FS 31.00 % M-Mode TAPSE 2.25 cm (M/F) >1.7 LV Diastology MV E' medial 0.098 (>0.07 m/s) E/A Ratio 1.6 LV E/e MED 10.00 (<14) MV E Vmax 0.98 (0.4-1.3 m/s) MV E' lateral 0.183 (>0.1 m/s) MV A Vmax 0.60 (0.4-1.3 m/s) LV E/e LAT 5.35 (<14) MV E/A Ratio 1.55 MV E/E' medial 10.03 MV E/E' lateral 5.36 Aortic Valve LVOT Area 2.98 cm2 AoV Area Vmax 2.69 cm2 LVOT Vmax 1.49 m/s AoV Area/ BSA (Vmax) 1.33 cm2/m2 LVOT Mean Cb. 0.92 m/s TERESE Mean Cb. 2.48 cm2 LVOT Peak Grad 8.9 mmHg TERESE Mean Cb. Index 1.23 cm2/m2 LVOT Mean Grad 4.1 mmHg LVOT VTI 0.299 m LVOT Diam s 1.90 cm AoV Vmax 1.65 m/s Velocity Ratio 0.90 AoV Mean Cb. 1.11 m/s AoV Peak Grad 10.9 mmHg LVOT SV 89.07 mL AoV Mean Grad 5.6 mmHg AoV VTI 0.337 m AoV Area VTI 2.64 cm2 AoV Area/ BSA (VTI) 1.31 cm/m2 Mitral Valve MV DT 288 (160-240 msec) MV PHT 84 msec MV Area PHT 2.63 cm2 MV VTI 0.361 m MV Area VTI 2.46 (4.0-6.0 cm2) Pulmonary Valve PV Vmax 1.11 (0.5-1.5 m/s) RVOT Peak Gr. 1.70 mmHg PV Peak Grad 4.9 mmHg RVOT Mean Gr. 0.90 mmHg PV Mean Grad 2.5 mmHg RVOT VTI 0.130 m PV VTI 0.236 m RVOT Vmax 0.65 m/s
[2021-06-23] MEDS: Normal Saline Flush 10 ML SYR IVP ×3 (01:36→10:30)
--- NOTE | 2021-06-23 01:41 | NUR.NOTE ---
no complaints and no needs Nursing Note:
[2021-06-23] MEDS: Pantoprazole 40 MG TABCR PO (07:43)
[2021-06-23] MEDS: VANCOMYCIN/WATER (PEG) 1.25 GM/250 ML BAG IV (07:44)
[2021-06-23 08:34] VITALS: BP 105/66; PULSE 60; RESP 16; TEMP 36.6; O2SAT 98
--- NOTE | 2021-06-23 15:09 | W.PM.DS.N ---
Date of service: 06/23/21 Time of Service: 15:09 DS: Diagnosis Discharge Diagnosis (1) Osteomyelitis of clavicle: Status: Acute (2) Phlegmonous cellulitis: Status: Acute (3) Neck pain: Status: Acute (4) Heroin abuse: Status: Acute Discharge Plan Disposition Patient Disposition: HOME Condition: Improving Discharge Details Reason For Visit: Osteomyelitis of Clavicle and Manubrium Admit Date/Time: 06/20/21 01:16 Admit Provider: Lei Benitez Attending Provider: Lei Benitez Primary Care Provider: Regina Bowman Hospital Course Hospital Course: 41 yr old male w/ hx of IVDU (currently still uses including heroin last used 2-3 days ago) who was treated for MRSA bacteremia and left chest wall cellulitis and abscess that involved his left pectoralis muscle. He was treated with Vancomycin and Zosyn and was treated from 04/06-04/07 and left A.M.A. but returned the next day 04/08 and was treated until 04/09 when he left again A.M.A. He had echocardiogram that did not show any vegetations and his chest wall abscess was incised and drained and grew MRSA. He reportedly was treated w/ oral antibiotics as an outpatient (outside Rx profile shows 7 day course of clindamycin filled 04/29 although the patient states that he took Bactrim DS x 2 weeks). He reports that his abscess improved but over the past month has gotten worse with increased redness and swelling over left anterior chest down to left nipple. He is also now complaining of pain with lifting his left arm and turning his neck. Evaluation in the ER included CT of his neck and chest, see below for Vrad impression: CT chest: Compared to 04/06/2021 there has been significant progression the inflammatory-infectious process involving the anterior chest wall, as described above. There is now lytic destruction medial aspect of the clavicle and with involvement of the ipsilateral sternoclavicular joint and manubrium. Findings are consistent with osteomyelitis of the structures and septic involvement of the left sternoclavicular joint. Phlegmonous process anterior to this measures approximately 3 x 2 x 4 cm although there does not appear to be a truly drainable abscess. Thoracic surgery consultation recommended. There are mild increased markings evident in lung bases, more so than previous as well as small nodular infiltrates in both lung bases. Most probably infectious as these have developed since 04/06/2021. There are no pleural effusions. IV vancomycin initiated. One blood culture tube grew micrococcus luteus; possible contaminant. His discomfort improved. The erythema over the chest wall improved but remained over the left sternoclavicular joint. He remained afebrile with no appreciable WBC count elevation (11.84 on day of d/c). Cardiothoracic surgeon Dr. Moncada at [facility] was spoke to at time of admission and again at time of d/c. Initially he recommended that orthopedic physician her at [facility] debrid the infected area and resect the clavicular head. This is a surgery that do not perform. The plan is now for him to d/c with his PICC line which will be taped to prevent access by the patient, butshould he access it for IV drug use, it should be evident that this occured when he comes in for his infusion. An appt is to be made at [facility] CTS clinic for next week. They plan on a f/u CT of the chest and then plan any needed intervention. If it appears that he did use the PICC line to infuse any drug, then a discussion will be made on whether he will stay in the hospital on swing bed status for further IV antibiotics, or change to an oral antibiotic that may be less effective. If this should occur and an oral antibiotic route is chosen, ID at [facility] will be contacted for recommendations. PCP follow up in 1-2 weeks. Schedule appt at [facility] Cardiothoracic surgery clinic for next week: [phone] Daily infusion of Daptomycin at [facility] infusion center. Initial infusion on 06/24/21 at 1 PM Home Meds and New Rx's Prescriptions: New daptomycin 350 mg Recon Soln 700 mg IVPB Q24H Qty: 0 RF: 0 Discharge Instructions Instructions: Osteomyelitis (DC) Stand Alone Forms: Nursing Discharge Form Referrals: [facility] Cardiothoracic [Other] (Please call to make an appointment.) Regina Bowman PA [Primary Care Provider] - (Please call to make a follow up appointment.) Activity:: Activity as Tolerated Equipment/Supplies:: No Equipment Needed Diet:: Resume regular diet Discharge Orders Discharge Orders: Discharge Order (Routine); Ordered 06/23/21 Ordered By: Rohit Tipton DS: Summary Time Spent with Patient providing and/or coordinating discharge services: Greater than 30 minutes Status at Discharge Functional status at discharge: independent ambulation Overall status at discharge: patient is progressing back to baseline Mental Status: mental status grossly normal Speech and Movement: speech and movement normal Mood: congruent mood Affect: normal affect Exam Narrative Exam Narrative: alert/oriented in no acute distress. HEENT: poor dentition otherwise unremarkable Neck: supple, lleft sternocleidomastoid muscle feels firm and is tender over the clavicular head; medial end of clavicle is red and edematous and minimally tender to palpation; right side of neck is nontender; normal ROM although tender w/ lateral rotation to the right Chest wall: induration over left anterior chest wall from clavicle to left nipple; erythema over superior and medial left chest wall from medial clavicle and superior manubrium down to 3-4th intercostal space Heart: RRR w/out murmur Abdomen: soft, nontender, no organomegaly Extremities: No edema or calf tenderness. Skin: multiple tatoos over chest, upper back and arms Neuro: grossly intact w/ out focal motor or sensory deficits Psych Mental Status: mental status grossly normal Speech and Movement: speech and movement normal Mood: congruent mood Affect: normal affect DS: Data Vitals/I&O Vitals and I&O: Vital Signs Temperature 36.6 C 06/23/21 08:34 Temperature Source Tympanic 06/23/21 08:34 Pulse 60 06/23/21 08:34 Pulse Rhythm Regular 06/23/21 09:00 Respiratory Rate 16 06/23/21 08:34 Respiratory Effort Non-Labored 06/23/21 09:00 Respiratory Depth Normal 06/23/21 09:00 Respiratory Pattern Normal 06/23/21 09:00 Blood Pressure 105/66 06/23/21 08:34 Blood Pressure Position Sitting 06/19/21 22:31 Pulse Oximetry 98 06/23/21 08:34 Oxygen Delivery Method Room Air 06/23/21 08:34 Oxygen Flow Rate 0 06/23/21 08:34 Pain Level 0 06/23/21 08:34 Intake & Output 06/22/21 06/23/21 06/23/21 23:59 11:59 23:59 Intake Total 260 / 1160 250 / 250 Balance 260 / 1160 250 / 250 Weight 88 kg Intake: IV 260 / 760 250 / 250 Other: Comment pt reports voiding in toilet without difficulty. Voiding Methods Toilet Data Completed and Pending Labs on day of discharge: Preliminary micro results at discharge 06/22/21 10:45 Blood Culture - Preliminary Blood NO GROWTH 24 HOURS 06/22/21 10:30 Blood Culture - Preliminary Blood NO GROWTH 24 HOURS 06/19/21 23:35 Blood Culture - Preliminary Blood NO GROWTH 72 HOURS PFSH All Active Problems Osteomyelitis of clavicle (Acute) Phlegmonous cellulitis (Acute) Neck pain (Acute) Heroin abuse (Acute) IVDU (intravenous drug user) (Acute) Medical History Abscess or cellulitis of chest wall Chest wall abscess MRSA bacteremia No significant past medical history Staphylococcus aureus bacteremia Surgical History History of surgery on extremity right leg surgery; age 10 yr old Family History Sister Douglas chorea Mother Harlingen chorea Social History Smoking/Tobacco Use Status: Current every day Tobacco Type: cigarettes Smoking packs per day: 1.5 Smoking cigarettes per day: 30.0 Smoking risk assessment performed?: Yes Alcohol Intake: former Drug use: Daily Substance use type: crack/cocaine and heroin Details: States he is down to a bag a day. Occasionally snorts cocaine Do you feel safe at home: Yes Do you feel safe in your relationship?: Yes
--- NOTE | 2021-06-23 17:14 | PDOC.CMDIS ---
- If Service Date Differs Date of service: 06/23/21 Time of Service: 17:14 LACE Index Scoring Tool - Questions: Length of Stay (in days): 3 Acuity (Admit via E.D.?): Yes E.D. Visits: 3 - Answers: Total Score: 9 Risk of Readmission: Low Risk Care Management Discharge Reason for Hospitalization: osteomyelitis Discharge Plan: Luciano returned home today after a PICC line was inserted for him to complete his six week antibiotic course at the infusion room, daily. He is agreeable to this plan, and reports that he has private transportation to and from the infusion room daily. His will drive him home today via private vehicle. He will follow up with his PCP and discharge plan of care. Patient/Family Education Needs: Review discharge instructions and limitations, discussion of self care needs including ask me three. Services Needed at Discharge: Infusion Therapy (out patient, daily for 6 weeks)
== END 2021-06-23 16:51 | disposition home or self-care (01) | DRG 540 ==
LOC: ER 06-20 01:45 → MS 06-20 02:29
PROVIDERS: Family Medicine; Internal Medicine; Registered Nurse Emergency; Admitting Provider Internal Medicine; Emergency Provider Emergency Medicine; PCP Physician Assistant Medical; Visit Provider Internal Medicine
DX: M86.112 Other acute osteomyelitis, left shoulder (principal); L02.213 Cutaneous abscess of chest wall; F11.10 Opioid abuse, uncomplicated; M54.2 Cervicalgia; F14.10 Cocaine abuse, uncomplicated; F17.210 Nicotine dependence, cigarettes, uncomplicated; B95.62 Methicillin resistant Staphylococcus aureus infection as the cause of diseases classified elsewhere; M86.28 Subacute osteomyelitis, other site
CPT/HCPCS: 36410; 36415; 70491; 80048; 80053; 80307; 84145; 85652; 87040; 87077; 87081; 87635; 96361; 96365; 96366; 99285; J1650; 71046; 71260; 71550; 72141; 73000; 80202; 81003; 81015; 83605; 83735; 84132; 85025; 86140; 87086; 87186; 93306; 99222; 99232; 99233; 99239; J1885; J3490

== ENCOUNTER 2021-06-27 00:20 | Outpatient (CLI) | payer MEDICAID, SELFPAY ==
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
[2021-06-27] MEDS: Omnipaque 350 MG/ML 100 ML BTL IJ (12:10)
== END 2021-06-27 00:40 ==
PROVIDERS: PCP Physician Assistant Medical; Visit Provider Thoracic Surgery (Cardiothoracic Vascular Surgery)
DX: M25.512 Pain in left shoulder (principal); M79.89 Other specified soft tissue disorders; M86.112 Other acute osteomyelitis, left shoulder
CPT/HCPCS: 71260; J3490

== ENCOUNTER 2021-06-30 02:48 | Outpatient (RCR) | payer MEDICAID, SELFPAY ==
[2021-06-24] MEDS: Normal Saline Flush 10 ML SYR IVP (13:36)
[2021-06-24 14:04] LABS: Creatine Kinase 71 U/L (39-308)
[2021-06-25] MEDS: Normal Saline Flush 10 ML SYR IVP (13:52)
== END 2021-07-07 23:59 | disposition home or self-care (01) ==
LOC: INF 02:48
PROVIDERS: PCP Physician Assistant Medical; Visit Provider Family Medicine
DX: M86.112 Other acute osteomyelitis, left shoulder (principal); L02.424 Furuncle of left upper limb
CPT/HCPCS: 36415; 82550; 96365

== ENCOUNTER 2023-10-28 02:05 | Emergency (ER) | payer MEDICAID, SELFPAY ==
[2023-10-28] VITALS (12 sets, daily range): BP systolic 75–180; BP diastolic 48–94; PULSE 80–136; RESP 14–32; TEMP 35.9–38.2; O2SAT 93–100
--- NOTE | 2023-10-28 02:00 | RT.EKG_ITS ---
APPROVED REPORT Exam: Resting ECG Reason for Exam: SOB Patient Location: E HR:110 bpm ECG Measurements Heart Rate 110 AXIS [place] 145 P 53 QRSd 93 QRS 83 QT 317 T 9 QTc 430 Conclusion Sinus tachycardia...rate> 99 Ventricular premature complex...V complex w/ short R-R interval Aberrant complex...small R-R variation, aberrant QRS Sinus Tachycardia at 110 Normal [place] Probable Rate Related ST Changes Otherwise not significantly different from 04/08/21
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
[2023-10-28 02:22] LABS: Abs Immature Grans 0.23 10^3/uL (0.0-0.06); HCT 39.9 % (40.0-50.0); HGB 13.1 g/dL (13.5-17.5); MCH 28.1 pg (27.0-33.0); MCHC 32.8 % (32.0-36.0); MCV 86 fL (80-95); MPV 9.4 fL (8.0-11.0); Platelet Count 211 10^3/uL (130-400); RBC 4.66 10^6/uL (4.36-5.78); RDW 13.4 % (11.8-14.1); RDW-SD 42.5 fL
[2023-10-28] MEDS: Omnipaque 350 MG/ML 100 ML BTL IJ (02:30)
[2023-10-28] MEDS: Ketorolac 30 MG/ML VIAL IVP (02:30)
[2023-10-28] MEDS: Normal Saline - Diluent 50 ML VIAL IJ (02:30)
[2023-10-28 02:36] LABS: ALT 70 U/L (16-63); AST 59 U/L (15-37); Albumin 2.6 g/dL (3.4-5.0); Alkaline Phosphatase 270 U/L (46-116); Anion Gap 11.5 mmol/L (3-11); BUN 26 mg/dL (7-18); Bilirubin, Total 1.2 mg/dL (0.2-1.0); CO2 26.5 mmol/L (21.0-32.0); CREATININE 1.2 mg/dL (0.70-1.30); Calcium 8.3 mg/dL (8.5-10.1); Chloride 98 mmol/L (98-107); Estimated GFR 77.92 (mL/min/1.73m2); Glucose 124 mg/dL (74-106); Magnesium 1.9 mg/dL (1.8-2.4); Potassium 3.2 mmol/L (3.5-5.1); Sodium 136 mmol/L (136-145); Total Protein 7.7 g/dL (6.4-8.2); Troponin I < 50 ng/L (< or =60)
[2023-10-28 02:44] LABS: Absolute Lymphocyte Count 1.28 10^3/uL (1.2-3.4); Absolute Neutrophil Count 9.98 10^3/uL (1.2-6.7); Atypical Lymphocytes % 2 %; Bands % 4 %
[2023-10-28 02:45] LABS: Absolute Monocyte Count 0.35 10^3/uL (0.1-0.8); Diff Comment Manual Differential; RBC Morphology Normal
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
[2023-10-28 03:09] LABS: ETHANOL BLOOD < 3.0 mg/dL (<10)
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
[2023-10-28] MEDS: PIPERACILLIN/TAZO 4.5 GM in Normal Saline 100 ML IVPB (04:05)
[2023-10-28] MEDS: Normal Saline 100 ML 200 ML (04:06)
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
[2023-10-28] MEDS: VANCOMYCIN 2,000 MG in Normal Saline 500 ML 250 MG IVPB (04:49)
[2023-10-28] MEDS: Lactated Ringers 1,000 ML 1000 ML IV ×2 (04:50→05:53)
[2023-10-28 04:55] LABS: *AMPHETAMINES SCREEN URINE Negative (Negative); *BARBITURATES SCREEN URINE Negative (Negative); *BENZODIAZEPINES SCREEN URINE Negative (Negative); Cannabinoids THC Negative (Negative); Cocaine Screen,Urine Positive (Negative); METHADONE URINE SCREEN Negative (Negative); OPIATES URINE SCREEN Negative (Negative)
[2023-10-28 05:04] LABS: Tricyclic Antidepressants Negative (Negative)
[2023-10-28 05:05] LABS: Bilirubin Negative (Negative); Blood Negative (Negative); Clarity Sl Cloudy (Clear); Glucose Negative (Negative); Ketones Negative (Negative); Leukocyte Esterase Negative (Negative); Nitrite Negative (Negative); Specific Gravity <= 1.005 (1.005-1.025); pH 5.5 (5-8)
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
--- NOTE | 2023-10-28 22:39 | NUR.NOTE ---
Positive blood culture report faxed to [facility] 10/28/23 at 22:40.Nursing Note:
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
--- NOTE | 2023-10-30 13:00 | ED.FU.B_ITS ---
Date of service: 10/30/23 Time of Service: 13:00 Follow Up Plan: Received blood culture from lab growing anaerobic bottle positive for gram- positive diplococci, gram-negative rods and gram-positive rods. Prior blood culture from 10/28/2023 aerobic bottle positive. Patient had been transferred to [facility] from this ED visit. [facility] transfer center was contacted and noted patient left AGAINST MEDICAL ADVICE last night. I contacted the patient and reviewed results with him. I recommended he return to the hospital for continued care. Patient noted he would contact [facility] and plan to return. I advised him to return as soon as possible and reviewed significance of results.
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
== END 2023-10-28 07:47 | disposition short-term general hospital (02) ==
LOC: ER 05:57
PROVIDERS: Emergency Provider Emergency Medicine; PCP Physician Assistant Medical
DX: S22.42XA Multiple fractures of ribs, left side, initial encounter for closed fracture (principal); J96.01 Acute respiratory failure with hypoxia; S27.321A Contusion of lung, unilateral, initial encounter; J18.9 Pneumonia, unspecified organism; F19.90 Other psychoactive substance use, unspecified, uncomplicated; R00.0 Tachycardia, unspecified; Z86.14 Personal history of Methicillin resistant Staphylococcus aureus infection; F17.210 Nicotine dependence, cigarettes, uncomplicated; V18.4XXA Pedal cycle driver injured in noncollision transport accident in traffic accident, initial encounter; Y93.55 Activity, bike riding; Y92.482 Bike path as the place of occurrence of the external cause
CPT/HCPCS: 74177; 80053; 80307; 87040; 87077; 93005; 96365; 96366; 96367; 96375; 99285; 70450; 71045; 71260; 72125; 80320; 81003; 83735; 84484; 85025; 87186; 93010; 94660; J1885; J2543; J3370; J3490